=== PATIENT | male | born 1955 | race Caucasian/White ===

== ENCOUNTER 2022-08-24 10:24 | Inpatient (IN) ==
[2022-08-24] MEDS ORDERED: ONDANSETRON INJ 2 MG/ML 2 ML VIAL IV STA ×2 (11:06→12:14)
[2022-08-24] MEDS ORDERED: SODIUM CHLORIDE 0.9% 1000ML 1,000 ML IV SCH (11:15)
--- NOTE | 2022-08-24 11:15 | Emergency Department Note ---
Impression & Plan Stroke-like symptoms, Dizziness, RUE weakness, Vomiting ED Provider Note INFORMANT: Patient and family ED PROVIDER(S): Delfino Dill MD CHIEF COMPLAINT: Dizziness, nausea and vomiting PLAN: Disposition: Admitted Condition: Critical Outpatient prescription management: none Referral: None MEDICAL DECISION MAKING: Patient presented with the below symptoms. Nursing did evaluate him and he was made a priority patient. I was called to his bedside. Patient was immediately evaluated. After brief evaluation patient was made a stroke alert due to concerns about the dizziness, double vision, and right upper extremity transient weakness. Patient underwent rapid head CT imaging and CT angiography. No acute stroke or acute hemorrhage noted. Patient was treated with Zofran, IV fluids, and IV Tylenol. Patient did require second dose of IV Zofran. [facility] was evaluated via the telestroke cart. After his evaluation patient was still within the window for thrombolytics, TNK. Patient has no contraindications. Reviewed these with the family. No recent ICH, structural vascular lesion, neoplasm, recent stroke, dis section, active bleeding, recent surgery, or head injury/trauma. CT angiography of the head questioned a asymmetry/hygroma versus chronic subdural. Discussed this with Dr. Clement. He had seen this and feels no contraindication to TNK. Discussed TNK risks and benefits with family and patient. Patient and family consented verbally. Discussed with ED pharmacist. Patient was administered TNK. He was also given IV Reglan due to continued nausea. [facility] Patient will be admitted by Dr. Monteiro. They did request a critical care consultation. I did consult with Dr. Hamilton of critical care. Patient will be admitted to the ICU patient was reassessed multiple times and gradually improved with resolution of the headache, nausea, vomiting and dizziness. Discussed with medical and health services manager After review of the information above and other included data, I feel the patient requires admission. Triage Nursing notes reviewed and agree them. Vital Signs: reviewed and remarkable for no significant abnormalities Prior /Outside records reviewed: none Differential diagnosis: CVA, TIA, Infection, dehydration, metabolic abnormality, hypo/hyperglycemia, electrolyte disturbance, anemia, hypoxia, cardiac sources, intracerebral event, toxicologic, neurologic, as well as other pathologies. Diagnostics, as interpreted by me: EC Lead ECG performed and revealed Normal sinus rhythm at 70, normal Ola, QRS normal. No elevation or depression. No PACs or PVCs Cardiac Monitoring: Cardiac monitoring ordered by me: The patient was placed on continuous cardiac monitoring and observed. It revealed a normal sinus rhythm at 79 beats per minute without ectopy or evidence of dysrhythmia. Medical decision rules: none Imaging studies: CT and CT angiography as above HPI: The patient is a 67year old male who presents to the Emergency Room with complaints of dizziness, nausea and vomiting. This started 945 this morning and is somewhat improved but persisting. The patient also notes the following associated symptoms, transient right upper extremity weakness, dizziness, diplopia, nausea, vomiting, and then development of headache on the right side. The patient has taken no medication for relieving factors. Current pain is rated as 3/10. No prior history of the same. No reported slurred speech or confusion per family. Pt denies LOC, fevers, chills, diaphoresis, neck pain, chest pain, breathing difficulties,, abdominal pain, back pain, melena, h ematochezia, urinary symptoms, numbness, lymphadenopathy, rash, or other complaints. PAST MEDICAL HISTORY: See Below, diabetes, hypertension PAST SURGICAL HISTORY: See Below, SOCIAL HISTORY: See Below, non-smoker HOME MEDICATIONS: See Below ALLERGIES: See Below VITALS: See Below PHYSICAL EXAMINATION: GENERAL: Awake, alert, uncomfortable-appearing, in no distress HENT: Normocephalic, atraumatic. Oropharynx unremarkable. EYES: Normal conjunctiva. Sclera non-icteric. PERRLA. EOMI with mild lateral nystagmus. NECK: Inspection normal. Non-tender. Supple. No nuchal rigidity. FROM. No masses. RESPIRATORY: Clear to auscultation. No wheezes. No rales. Normal respiratory effort. CARDIAC: Normal rate. Normal rhythm. No murmurs. No rubs. Extremities warm and well perfused. Pulses equal. No JVD. GI: Soft, non-distended. No tenderness to palpation. No rebound or guarding. No masses. RECTAL: Deferred. MUSCULOSKELETAL: Atraumatic. Chest examination reveals no tenderness. The back is symmetrical on inspection without obvious abnormality. There is no CVA tenderness to palpation. No joint edema. LOWER EXTREMITIES: Calves are equal size bilaterally and non-tender. No edema. No discoloration. NEURO: Normal sensorium. No sensory or motor deficits noted. Cranial nerves II through XII intact. No drift. Normal rapid alternating movements and [id number]. Speech clear. SKIN: No rash or jaundice noted. CRITICAL CARE: I have personally spent greater than 60 minutes of critical care time in the direct management of this patient. This includes bedside care, interpretation of diagnostic studies, and testing, discussion with consultants, patient, and family members, and other required patient management activities. These minutes are in excess of all separately billable procedures. Past Med/Surg History Social History Smoking Status: Former smoker Smoking End Date: 25 years ago; Second Hand Exposure: No; Do You Dip or Chew Tobacco: No; Tobacco Cessation Education Requested by Patient: No Hx Alcohol Use: No Hx Substance Use: No Preferred Language: Swazi Communication Ability: Effective Spanish Linguist Required: No Beliefs That Will Affect Care: None Current Living Situation: Alone Other Information That Helps Us Care for You: No Feels Safe at Home: Yes Safety Concerns: Feels Safe At This Time Assistive Devices: Denture - Upper and Glasses Allergies Allergies Allergy/AdvReac Type Severity Reaction Status Date / Time Unable to Assess Allergy Unverified 08/24/22 12:23 Home Meds Home Medications Medication Instructions Recorded Confirmed atorvastatin 80 mg tablet 80 mg PO HS 08/24/22 08/24/22 lisinopril 20 1 tab PO DAILY 08/24/22 08/24/22 mg-hydrochlorothiazide 25 mg tablet metformin 1,000 mg tablet 1,000 mg PO BID 08/24/22 08/24/22 semaglutide 0.25 mg or 0.5 mg (2 0.5 mg subcut WK 08/24/22 08/24/22 mg/1.5 mL) subcutaneous pen injector (Ozempic) Results & Data (ED) Vital Signs Vital Signs - 24 hr 08/24/22 10:36 08/24/22 12:10 08/24/22 13:00 Temperature 36.9 C Temperature Source Oral Pulse Rate 71 79 Pulse Rate [Apical] 71 Pulse Rate from SpO2 Sensor Pulse Rhythm Regular Pulse Strength Normal Respiratory Rate 18 18 Respiratory Effort / Characteristics Non-Labored Respiratory Depth Normal Respiratory Pattern Regular Blood Pressure 136/69 Blood Pressure [Right Arm] 123/65 Blood Pressure Mean 91 Blood Pressure Mean [Right Arm] 84 Blood Pressure Position Lying Blood Pressure Position [Right Arm] Sitting Pulse Oximetry 95 97 Oxygen Delivery Method Room Air Room Air Sepsis Recent Fever Within 48 Hours No Sepsis New/Unexplained Change in Mental Status N/A Sepsis Action Taken by Nursing No Action Required 08/24/22 10:35 08/24/22 10:36 08/24/22 10:45 Temperature Temperature Source Pulse Rate 74 78 Pulse Rate [Apical] Pulse Rate from SpO2 Sensor 74 Pulse Rhythm Pulse Strength Respiratory Rate 22 22 Respiratory Effort / Characteristics Respiratory Depth Respiratory Pattern Blood Pressure 136/69 Blood Pressure [Right Arm] Blood Pressure Mean 103 Blood Pressure Mean [Right Arm] Blood Pressure Position Blood Pressure Position [Right Arm] Pulse Oximetry 98 Oxygen Delivery Method Sepsis Recent Fever Within 48 Hours Sepsis New/Unexplained Change in Mental Status Sepsis Action Taken by Nursing 08/24/22 11:00 08/24/22 11:00 08/24/22 11:15 Temperature Temperature Source Pulse Rate 72 72 Pulse Rate [Apical] Pulse Rate from SpO2 Sensor 72 73 Pulse Rhythm Pulse Strength Respiratory Rate 11 L 21 Respiratory Effort / Characteristics Respiratory Depth Respiratory Pattern Blood Pressure 165/79 H Blood Pressure [Right Arm] Blood Pressure Mean 119 Blood Pressure Mean [Right Arm] Blood Pressure Position Blood Pressure Position [Right Arm] Pulse Oximetry 92 95 Oxygen Delivery Method Sepsis Recent Fever Within 48 Hours Sepsis New/Unexplained Change in Mental Status Sepsis Action Taken by Nursing 08/24/22 11:31 08/24/22 11:31 08/24/22 11:42 Temperature Temperature Source Pulse Rate 96 H 85 Pulse Rate [Apical] Pulse Rate from SpO2 Sensor Pulse Rhythm Pulse Strength Respiratory Rate 19 18 Respiratory Effort / Characteristics Respiratory Depth Respiratory Pattern Blood Pressure 139/71 Blood Pressure [Right Arm] Blood Pressure Mean 88 Blood Pressure Mean [Right Arm] Blood Pressure Position Blood Pressure Position [Right Arm] Pulse Oximetry Oxygen Delivery Method Sepsis Recent Fever Within 48 Hours Sepsis New/Unexplained Change in Mental Status Sepsis Action Taken by Nursing 08/24/22 11:42 08/24/22 11:45 08/24/22 11:50 Temperature Temperature Source Pulse Rate 87 Pulse Rate [Apical] Pulse Rate from SpO2 Sensor 86 Pulse Rhythm Pulse Strength Respiratory Rate 19 Respiratory Effort / Characteristics Respiratory Depth Respiratory Pattern Blood Pressure 134/67 140/74 Blood Pressure [Right Arm] Blood Pressure Mean 105 119 Blood Pressure Mean [Right Arm] Blood Pressure Position Blood Pressure Position [Right Arm] Pulse Oximetry 90 Oxygen Delivery Method Sepsis Recent Fever Within 48 Hours Sepsis New/Unexplained Change in Mental Status Sepsis Action Taken by Nursing 08/24/22 11:50 08/24/22 12:00 08/24/22 12:00 Temperature Temperature Source Pulse Rate 88 76 Pulse Rate [Apical] Pulse Rate from SpO2 Sensor 88 Pulse Rhythm Pulse Strength Respiratory Rate 19 14 Respiratory Effort / Characteristics Respiratory Depth Respiratory Pattern Blood Pressure 133/63 Blood Pressure [Right Arm] Blood Pressure Mean 101 Blood Pressure Mean [Right Arm] Blood Pressure Position Blood Pressure Position [Right Arm] Pulse Oximetry 92 Oxygen Delivery Method Sepsis Recent Fever Within 48 Hours Sepsis New/Unexplained Change in Mental Status Sepsis Action Taken by Nursing 08/24/22 12:10 08/24/22 12:10 08/24/22 12:15 Temperature Temperature Source Pulse Rate 80 83 Pulse Rate [Apical] Pulse Rate from SpO2 Sensor Pulse Rhythm Pulse Strength Respiratory Rate 13 17 Respiratory Effort / Characteristics Respiratory Depth Respiratory Pattern Blood Pressure 137/70 Blood Pressure [Right Arm] Blood Pressure Mean 90 Blood Pressure Mean [Right Arm] Blood Pressure Position Blood Pressure Position [Right Arm] Pulse Oximetry Oxygen Delivery Method Sepsis Recent Fever Within 48 Hours Sepsis New/Unexplained Change in Mental Status Sepsis Action Taken by Nursing 08/24/22 12:20 08/24/22 12:20 08/24/22 12:30 Temperature Temperature Source Pulse Rate 83 Pulse Rate [Apical] Pulse Rate from SpO2 Sensor Pulse Rhythm Pulse Strength Respiratory Rate 19 Respiratory Effort / Characteristics Respiratory Depth Respiratory Pattern Blood Pressure 139/64 122/64 Blood Pressure [Right Arm] Blood Pressure Mean 101 89 Blood Pressure Mean [Right Arm] Blood Pressure Position Blood Pressure Position [Right Arm] Pulse Oximetry Oxygen Delivery Method Sepsis Recent Fever Within 48 Hours Sepsis New/Unexplained Change in Mental Status Sepsis Action Taken by Nursing 08/24/22 12:30 08/24/22 12:45 08/24/22 12:45 Temperature Temperature Source Pulse Rate 74 72 Pulse Rate [Apical] Pulse Rate from SpO2 Sensor 73 70 Pulse Rhythm Pulse Strength Respiratory Rate 18 15 Respiratory Effort / Characteristics Respiratory Depth Respiratory Pattern Blood Pressure 128/85 Blood Pressure [Right Arm] Blood Pressure Mean 95 Blood Pressure Mean [Right Arm] Blood Pressure Position Blood Pressure Position [Right Arm] Pulse Oximetry 97 96 Oxygen Delivery Method Sepsis Recent Fever Within 48 Hours Sepsis New/Unexplained Change in Mental Status Sepsis Action Taken by Nursing 08/24/22 13:00 06/14/23 13:00 Temperature Temperature Source Pulse Rate 71 Pulse Rate [Apical] Pulse Rate from SpO2 Sensor 70 Pulse Rhythm Pulse Strength Respiratory Rate 19 Respiratory Effort / Characteristics Respiratory Depth Respiratory Pattern Blood Pressure 123/65 Blood Pressure [Right Arm] Blood Pressure Mean 86 Blood Pressure Mean [Right Arm] Blood Pressure Position Blood Pressure Position [Right Arm] Pulse Oximetry 97 Oxygen Delivery Method Sepsis Recent Fever Within 48 Hours Sepsis New/Unexplained Change in Mental Status Sepsis Action Taken by Nursing Laboratory Data 08/24/22 10:42 08/24/22 10:42 Lab Results 08/24/22 08/24/22 08/24/22 Range/Units 10:42 10:42 10:42 WBC 9.38 (4.8-10.8) K/ul RBC 4.42 L (4.70-6.10) M/uL Hgb 13.4 L (14.0-18.0) g/dl POC Hgb (14.0-18.0) g/dl Hct 38.4 L (42.0-52.0) % POC Hct (42-52) % MCV 86.9 (80.0-100.0) fL MCH 30.3 (25.0-34.0) pg MCHC 34.9 (32.0-36.0) g/dL RDW Std Deviation 40.3 (36.4-46.3) fL RDW Coeff of Pamela 12.7 (11.5-14.5) % Plt Count 285 (130-400) K/uL MPV 10.8 (9.4-12.4) fL Immature Gran % (Auto) 0.2 % Neut % (Auto) 63.2 % Lymph % (Auto) 30.2 % Forest % (Auto) 4.8 % Eos % (Auto) 1.1 % Baso % (Auto) 0.5 % Neut # (Auto) 5.93 (1.40-6.50) K/uL Lymph # (Auto) 2.83 (1.2-3.4) K/uL Forest # (Auto) 0.45 (0.11-0.59) K/uL Eos # (Auto) 0.10 (0-0.50) K/uL Baso # (Auto) 0.05 (0-0.2) K/uL Immature Gran # (Auto) 0.02 (0.01-0.20) K/uL PT 10.5 (9.0-12.0) Seconds INR 1.0 (0.9-1.1) APTT 20.1 L (21.0-31.0) Seconds PTT Ratio 0.7 POC Sodium (135-144) mmol/L Sodium 140 (136-145) mmol/L POC Potassium (3.3-5.0) mmol/L Potassium 3.4 L (3.5-5.1) mmol/L POC Chloride (101-112) mmol/L Chloride 104 (98-107) mmol/L Carbon Dioxide 24 (21-32) mmol/L POC Total CO2 (24-31) mmol/L Anion Gap 12 H (3-11) POC Anion Gap (16-25) mmol/L POC BUN (7-18) mg/dl BUN 22 (6-23) mg/dl Creatinine 1.19 (0.6-1.4) mg/dl POC Creatinine (0.6-1.3) mg/dl Est Cr Clr Drug Dosing 64.2 ml/min Est GFR ( Amer) 72.3 ml/min Est GFR (Non-Af Amer) 62.4 ml/min BUN/Creatinine Ratio 18.5 (10-20) Glucose 167 H (70-99(Fasting)) mg/dl POC Glucose (70-99) mg/dl POC Glucose (other) (70-99) mg/dl Calcium 9.9 (8.6-10.3) mg/dl POC Ioniz Calcium Taiwo (1.12-1.32) mmol/l Magnesium 1.5 L (1.7-2.4) mg/dl Total Bilirubin 1.4 H (0.2-1.0) mg/dl AST 18 (13-39) U/L ALT 13 (7-52) U/L Alkaline Phosphatase 57 (34-104) U/L Troponin I High Sens 5.2 (0-20) pg/ml Total Protein 7.3 (6.0-8.3) gm/dl Albumin 4.5 (3.4-5.0) gm/dl Globulin 2.8 (2.5-4.0) gm/dl Albumin/Globulin Ratio 1.6 (0.9-2) SARS-CoV-2, RNA, NAAT (NEGATIVE) 08/24/22 08/24/22 08/24/22 Range/Units 10:50 11:18 11:20 WBC (4.8-10.8) K/ul RBC (4.70-6.10) M/uL Hgb (14.0-18.0) g/dl POC Hgb 12.2 L (14.0-18.0) g/dl Hct (42.0-52.0) % POC Hct 36 L (42-52) % MCV (80.0-100.0) fL MCH (25.0-34.0) pg MCHC (32.0-36.0) g/dL RDW Std Deviation (36.4-46.3) fL RDW Coeff of Pamela (11.5-14.5) % Plt Count (130-400) K/uL MPV (9.4-12.4) fL Immature Gran % (Auto) % Neut % (Auto) % Lymph % (Auto) % Forest % (Auto) % Eos % (Auto) % Baso % (Auto) % Neut # (Auto) (1.40-6.50) K/uL Lymph # (Auto) (1.2-3.4) K/uL Forest # (Auto) (0.11-0.59) K/uL Eos # (Auto) (0-0.50) K/uL Baso # (Auto) (0-0.2) K/uL Immature Gran # (Auto) (0.01-0.20) K/uL PT (9.0-12.0) Seconds INR (0.9-1.1) APTT (21.0-31.0) Seconds PTT Ratio POC Sodium 140 (135-144) mmol/L Sodium (136-145) mmol/L POC Potassium 3.5 (3.3-5.0) mmol/L Potassium (3.5-5.1) mmol/L POC Chloride 103 (101-112) mmol/L Chloride (98-107) mmol/L Carbon Dioxide (21-32) mmol/L POC Total CO2 21 L (24-31) mmol/L Anion Gap (3-11) POC Anion Gap 20.0 (16-25) mmol/L POC BUN 21 H (7-18) mg/dl BUN (6-23) mg/dl Creatinine (0.6-1.4) mg/dl POC Creatinine 1.1 (0.6-1.3) mg/dl Est Cr Clr Drug Dosing ml/min Est GFR ( Amer) ml/min Est GFR (Non-Af Amer) ml/min BUN/Creatinine Ratio (10-20) Glucose (70-99(Fasting)) mg/dl POC Glucose 197 H (70-99) mg/dl POC Glucose (other) 212 H (70-99) mg/dl Calcium (8.6-10.3) mg/dl POC Ioniz Calcium Taiwo 1.18 (1.12-1.32) mmol/l Magnesium (1.7-2.4) mg/dl Total Bilirubin (0.2-1.0) mg/dl AST (13-39) U/L ALT (7-52) U/L Alkaline Phosphatase (34-104) U/L Troponin I High Sens (0-20) pg/ml Total Protein (6.0-8.3) gm/dl Albumin (3.4-5.0) gm/dl Globulin (2.5-4.0) gm/dl Albumin/Globulin Ratio (0.9-2) SARS-CoV-2, RNA, NAAT NEGATIVE (NEGATIVE) Administered Medications Sodium Chloride (Nss 1000ml) 1,000 mls @ 125 mls/hr IV .Q8H XIOMARA Stop: 09/23/22 12:59 Last Admin: 08/24/22 13:18 Dose: 125 mls/hr Documented By: CRISTIAN Discontinued Medications Sodium Chloride (Nss 1000ml) 1,000 mls @ 50 mls/hr IV .Q20H XIOMARA Stop: 09/23/22 11:14 Last Infusion: 08/24/22 14:30 Dose: 0 mls/hr Documented By: Admin: 08/24/22 11:57 Dose: 50 mls/hr Documented By: ETHAN Acetaminophen (Ofirmev) 1,000 mg in 100 mls @ 400 mls/hr IV NOW STA Stop: 08/24/22 11:59 Last Infusion: 08/24/22 13:31 Dose: 0 mls/hr Documented By: Admin: 08/24/22 11:52 Dose: 400 mls/hr Documented By: ETHAN Tenecteplase 23 mg/ Syringe 4.6 mls @ 55.2 mls/min IV NOW ONE; Protocol Stop: 08/24/22 12:40 Last Admin: 08/24/22 12:33 Dose: 55.2 mls/min Documented By: NOLVIA Co-signed By: CRISTIAN Magnesium Sulfate/Dextrose (Magnesium Sulfate / D5w) 1 gm in 100 mls @ 50 mls/hr IV Q2H XIOMARA Stop: 08/24/22 17:44 Last Admin: 08/24/22 16:49 Dose: 50 mls/hr Documented By: SHEILA Sodium Chloride (Nss 1000ml) 500 mls @ 999 mls/hr IV .Q31M ONE Stop: 08/24/22 16:42 Last Infusion: 08/24/22 17:16 Dose: 0 mls/hr Documented By: Admin: 08/24/22 16:20 Dose: 999 mls/hr Documented By: SHEILA Insulin Aspart (Insulin Aspart Per Unit Charge) 0 units SC Q6 XIOMARA Stop: 09/23/22 18:29 Last Admin: 08/24/22 17:25 Dose: Not Given Documented By: SHEILA Ioversol (Optiray 320 500ml) 115 ml IV ONCE ONE Stop: 08/24/22 11:33 Last Admin: 08/24/22 11:32 Dose: 115 ml Documented By: MILE Metoclopramide HCl (Metoclopramide Hcl Inj 5 Mg/Ml 2 Ml Vial) 5 mg IV ONE ONE Stop: 08/24/22 12:47 Last Admin: 08/24/22 13:16 Dose: 5 mg Documented By: CRISTIAN Ondansetron HCl (Ondansetron Inj 2 Mg/Ml 2 Ml Vial) 4 mg IV NOW STA Stop: 08/24/22 11:07 Last Admin: 08/24/22 11:10 Dose: 4 mg Documented By: AMITA Ondansetron HCl (Ondansetron Inj 2 Mg/Ml 2 Ml Vial) 4 mg IV NOW STA Stop: 08/24/22 12:15 Last Admin: 08/24/22 12:15 Dose: 4 mg Documented By: ETHAN Potassium Chloride (Potassium Chloride Crtab 20 Meq Tabcr) 40 meq PO NOW STA Stop: 08/24/22 13:35 Last Admin: 08/24/22 17:33 Dose: 40 meq Documented By: SHEILA Sodium Chloride (Sodium Chloride 0.9% 10ml Flush) 20 ml IV NOW STA Stop: 08/24/22 12:30 Last Admin: 08/24/22 16:41 Dose: Not Given Documented By: SHEILA Imaging Data Radiologist's Impression: Chest X-Ray 08/24/22 00:00 XR chest 1V portable CLINICAL HISTORY: ILLNESS TECHNIQUE: Single frontal radiograph of the chest was obtained. Comparison: None available at the time of this dictation. FINDINGS: No lines and tubes are seen. The cardiomediastinal silhouette is normal. The lungs are clear. No evidence of pleural effusion or pneumothorax. IMPRESSION: No acute chest disease. ACT 112: Negative or not required by law. Electronically signed by: Bassam Gonzalez M.D. 08/24/2022 12:[address] 08/24/22 11:06 CT head/brain wo con CLINICAL HISTORY: neuro deficit, acute stroke suspected Technique: Contiguous axial CT images of the head were acquired from the base of the skull to the vertex without intravenous contrast administration. Images were viewed in brain, subdural and bone windows. Automated dose lowering techniques and/or adjustment according to patient size were utilized for this exam. Comparison: Comparison is made to CTA head and neck 08/25/2019 Findings: The ventricles, basal cisterns, and cerebral sulci are normal. There is no acute intracranial hemorrhage or evidence of acute territorial infarction. Neither mass effect, shift of the midline structures, nor abnormal extra-axial fluid collections are shown. Imaged portions of the paranasal sinuses and mastoid air cells are clear. The orbits appear normal. There are no acute fractures of the calvaria or scalp swelling. Impression: No acute intracranial hemorrhage, no evidence of acute territorial infarction or other acute intracranial disease process. ACT 112: Negative or not required by law. Electronically signed by: Bassam Gonzalez M.D. 08/24/2022 11:34 AM Head CTA 08/24/22 11:06 CT angio head w con CLINICAL HISTORY: 67 years-old Male with neuro deficit, acute stroke suspected. Acute strokelike symptoms headache COMPARISON STUDY: Head CT of same day TECHNIQUE: Following the IV administration of 150 cc of Optiray, CT angiogram of the brain was performed from the skull base to the vertex. Images are reviewed in the axial, sagittal, and coronal planes. 3-D MIPS images are created and assessed. IV contrast was administered without complication. All measurements were obtained according to NASCET criteria. A dose lowering technique was utilized adhering to the principles of ALARA. FINDINGS: CT ANGIOGRAM OF THE BRAIN: The imaged bilateral internal carotid arteries are patent. The bilateral anterior and middle cerebral arteries are also patent. The vertebrobasilar system and posterior cerebral arteries are widely patent. Diminutive right vertebral artery is likely developmental. Diminutive basilar artery with origin of the posterior cerebral arteries. Mild fusiform dilation of the basilar tip measures up to 2.8 cm, likely secondary to normal vascular pedicle origin. There is no aneurysm, high-grade stenosis, or proximal branch occlusion identified. Dural sinuses appear patent. Asymmetric extra-axial space with CSF attenuation adjacent to the left cerebral hemisphere measures up to 5 mm. Involutional changes with suggestion of mild chronic microvascular ischemic disease. IMPRESSION: 1. Unremarkable CTA of the head. 2. 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 3. Involutional changes with suggestion of mild chronic microvascular ischemic disease. ACT 112: Negative or not required by law. The above report was generated using voice recognition software. It may contain grammatical, syntax or spelling errors. Electronically signed by: Rolf Luna M.D. 08/24/2022 11:54 AM Neck CTA 08/24/22 11:06 CT ANGIOGRAPHY OF THE NECK WITH CONTRAST CLINICAL HISTORY: neuro deficit, acute stroke suspected. Blurred vision. Right arm weakness. COMPARISON STUDY: No previous studies for comparison. Technique: CT angiography of the carotid and vertebral arteries was obtained using Optiray and 3D reconstruction on an independent workstation. NASCET criteria was utilized. Automated exposure control was utilized for the study. A dose lowering technique was utilized adhering to the principles of ALARA. CT DOSE: 1543.24 mGy.cm Findings: Visualized portions of the lung apices are unremarkable. There is no cervical spine fracture. There is no cervical lymphadenopathy. The left vertebral artery is dominant and patent. The right vertebral artery is diminutive on a congenital basis. The bilateral common carotid and cervical internal carotid arteries are patent. There is mild plaque within these vessels. There is no stenosis or dissection within the neck. There is no aneurysm within the neck. IMPRESSION: No stenosis or dissection within the bilateral common carotid, cer vical internal carotid or vertebral arteries. Mild atherosclerotic plaque. ACT 112: Negative or not required by law. Electronically signed by: Tonio Piña M.D. 08/24/2022 11:43 AM Discharge Plan Visit Data Chief Complaint: Illness Stated Complaint: BLURRY EYE & ARM HEAVINESS ED Provider: Delfino Dill Discharge Problem: Stroke-like symptoms, Dizziness, RUE weakness, Vomiting Patient Disposition: Admitted As Inpatient Discharge Instructions Interventions: ED Discharge Assessment Last Done: 08/24/22 13:56
[2022-08-24 11:29] LABS: Basophils # (auto) 0.05 K/uL (0-0.2); Basophils % (auto) 0.5 %; Eosinophils % (auto) 1.1 %; Hematocrit (blood only) 38.4 % (42.0-52.0); Hemoglobin 13.4 g/dl (14.0-18.0); Immature Granulocytes # (auto) 0.02 K/uL (0.01-0.20); Immature Granulocytes % (auto) 0.2 %; Lymphocytes # (auto) 2.83 K/uL (1.2-3.4); Lymphocytes % (auto) 30.2 %; Mean Corpuscular Hemoglobin 30.3 pg (25.0-34.0); Mean Corpuscular Hgb Conc 34.9 g/dL (32.0-36.0); Mean Corpuscular Volume 86.9 fL (80.0-100.0); Mean Platelet Volume 10.8 fL (9.4-12.4); Monocytes # (auto) 0.45 K/uL (0.11-0.59); Monocytes % (auto) 4.8 %; Neutrophils # (auto) 5.93 K/uL (1.40-6.50); Neutrophils % (auto) 63.2 %; Platelet Count 285 K/uL (130-400); RDW Coefficient of Variation 12.7 % (11.5-14.5); RDW Standard Deviation 40.3 fL (36.4-46.3); Red Blood Count 4.42 M/uL (4.70-6.10); White Blood Count 9.38 K/ul (4.8-10.8)
[2022-08-24 11:30] LABS: iSTAT Creatinine 1.1 mg/dl (0.6-1.3); iSTAT Hemoglobin 12.2 g/dl (14.0-18.0); iSTAT Ionized Calcium 1.18 mmol/l (1.12-1.32); iSTAT Potassium 3.5 mmol/L (3.3-5.0)
[2022-08-24] MEDS ORDERED: OPTIRAY 320 500ml IV ONE (11:32)
--- NOTE | 2022-08-24 11:36 | CT Scan Report ---
CT head/brain wo con CLINICAL HISTORY: neuro deficit, acute stroke suspected Technique: Contiguous axial CT images of the head were acquired from the base of the skull to the timo shade without intravenous contrast administration. Images were viewed in brain, subdural and bone [facility]. Automated dose lowering techniques and/or adjustment according to patient size were utilized for this exam. Comparison: Comparison is made to CTA head and neck 08/25/2019 Findings: The ventricles, basal cisterns, and cerebral sulci are normal. There is no acute intracranial hemorrh age or evidence of acute territorial infarction. Neither mass effect, shift of the midline structures , nor abnormal extra-axial fluid collections are shown. Imaged portions of the paranasal sinuses and mastoid air cells are clear. The orbits appear normal. There are no acute fractures of the calvaria or scalp swelling. Impression: No acute intracranial hemorrhage, no evidence of acute territorial infarction or other acute intracra nial disease process. ACT 112: Negative or not required by law. Electronically signed by: Bassam Gonzalez M.D. 08/24/2022 11:34 AM
[2022-08-24 11:44] LABS: Albumin Globulin Ratio 1.6 (0.9-2); Albumin Level 4.5 gm/dl (3.4-5.0); BUN Creatinine Ratio 18.5 (10-20); Bilirubin,Total 1.4 mg/dl (0.2-1.0); Calcium 9.9 mg/dl (8.6-10.3); Creatinine Clr Calc Pharmacy 64.2 ml/min; Est GFR (African American) 72.3 ml/min; Est GFR (Non-African American) 62.4 ml/min; Globulin 2.8 gm/dl (2.5-4.0); Magnesium 1.5 mg/dl (1.7-2.4); Potassium 3.4 mmol/L (3.5-5.1); Total Protein 7.3 gm/dl (6.0-8.3)
[2022-08-24] MEDS ORDERED: ACETAMINOPHEN 1,000 MG/100 ML VIAL IV STA (11:45)
--- NOTE | 2022-08-24 11:45 | CT Scan Report ---
CT ANGIOGRAPHY OF THE NECK WITH CONTRAST CLINICAL HISTORY: neuro deficit, acute stroke suspected. Blurred vision. Right arm weakness. COMPARISON STUDY: No previous studies for comparison. Technique: CT angiography of the carotid and vertebral arteries was obtained using Optiray and 3D rec onstruction on an independent workstation. NASCET criteria was utilized. Automated exposure control was utilized for the study. A dose lowering technique was utilized adhering to the principles of ALA RA. CT DOSE: 1543.24 mGy.cm Findings: Visualized portions of the lung apices are unremarkable. There is no cervical spine fractur e. There is no cervical lymphadenopathy. The left vertebral artery is dominant and patent. The right vertebral artery is diminutive on a congenital basis. The bilateral common carotid and cervical inter nal carotid arteries are patent. There is mild plaque within these vessels. There is no stenosis or d issection within the neck. There is no aneurysm within the neck. IMPRESSION: No stenosis or dissection within the bilateral common carotid, cervical internal carotid or vertebral arteries. Mild atherosclerotic plaque. ACT 112: Negative or not required by law. Electronically signed by: Tonio Piña M.D. 08/24/2022 11:43 AM
[2022-08-24 11:50] LABS: Troponin I High Sensitivity 5.2 pg/ml (0-20)
--- NOTE | 2022-08-24 11:56 | CT Scan Report ---
CT angio head w con CLINICAL HISTORY: 67 years-old Male with neuro deficit, acute stroke suspected. Acute strokelike s ymptoms headache COMPARISON STUDY: Head CT of same day TECHNIQUE: Following the IV administration of 150 cc of Optiray, CT angiogram of the brain was perfor med from the skull base to the vertex. Images are reviewed in the axial, sagittal, and coronal planes . 3-D MIPS images are created and assessed. IV contrast was administered without complication. All me asurements were obtained according to NASCET criteria. A dose lowering technique was utilized adherin g to the principles of ALARA. FINDINGS: CT ANGIOGRAM OF THE BRAIN: The imaged bilateral internal carotid arteries are patent. The bilateral anterior and middle cerebral arteries are also patent. The vertebrobasilar system and posterior cerebral arteries are widely kay nt. Diminutive right vertebral artery is likely developmental. Diminutive basilar artery with o rigin of the posterior cerebral arteries. Mild fusiform dilation of the basilar tip measures up to 2. 8 cm, likely secondary to normal vascular pedicle origin. There is no aneurysm, high-grade stenosis, or proximal branch occlusion identified. Dural sinuses appear patent. Asymmetric extra-axial space with CSF attenuation adjacent to the left cerebral hemisphere measures u p to 5 mm. Involutional changes with suggestion of mild chronic microvascular ischemic disease. IMPRESSION: 1. Unremarkable CTA of the head. 2. 5 mm asymmetric CSF attenuating extra-axial space adjacent to the left cerebral hemisphere suggest prerna of a hygroma versus chronic subdural hematoma. 3. Involutional changes with suggestion of mild chronic microvascular ischemic disease. ACT 112: Negative or not required by law. The above report was generated using voice recognition software. It may contain grammatical, syntax o r spelling errors. Electronically signed by: Rolf Luna M.D. 08/24/2022 11:54 AM
[2022-08-24 11:58] LABS: Partial Thromboplastin Ratio 0.7; Partial Thromboplastin Time 20.1 Seconds (21.0-31.0); Prothrombin Time 10.5 Seconds (9.0-12.0)
[2022-08-24] MEDS ORDERED: STAT IV STA (12:29)
[2022-08-24] MEDS ORDERED: SODIUM CHLORIDE 0.9% 10ML FLUSH IV STA (12:29)
[2022-08-24] MEDS ORDERED: No Aspirin within 24hrs of THROMBOLYTIC-Stroke PO SCH (12:30)
[2022-08-24] MEDS ORDERED: TENECTEPLASE 23 MG in SYRINGE 0 ML IV ONE (12:39)
[2022-08-24] MEDS ORDERED: METOCLOPRAMIDE HCL INJ 5 MG/ML 2 ML VIAL IV ONE (12:46)
--- NOTE | 2022-08-24 12:57 | XRay Report ---
XR chest 1V portable CLINICAL HISTORY: ILLNESS TECHNIQUE: Single frontal radiograph of the chest was obtained. Comparison: None available at the time of this dictation. FINDINGS: No lines and tubes are seen. The cardiomediastinal silhouette is normal. The lungs are clear. No evid ence of pleural effusion or pneumothorax. IMPRESSION: No acute chest disease. ACT 112: Negative or not required by law. Electronically signed by: Bassam Gonzalez M.D. 08/24/2022 12:55 PM
[2022-08-24] MEDS ORDERED: PHARMACIST DISCHARGE MED REC CONSULT PRN ×2 (13:01→13:18)
[2022-08-24] MEDS ORDERED: LABETALOL HCL IV 5 MG/ML 20ML IV PRN (13:18)
[2022-08-24] MEDS: SODIUM CHLORIDE 0.9% 1000ML 1,000 ML IV SCH ×2 (13:18→21:40)
[2022-08-24] MEDS ORDERED: GLUCOSE 40% GEL 15 GM TUBE PO PRN (13:20)
[2022-08-24] MEDS ORDERED: CARBOHYDRATES FOR HYPOGLYCEMIA PO PRN (13:20)
[2022-08-24] MEDS ORDERED: DEXTROSE 50% 50 ML SYRINGE IV PRN (13:20)
[2022-08-24] MEDS ORDERED: GLUCAGON FOR INJ 1 MG VIAL SQ PRN (13:20)
[2022-08-24] MEDS ORDERED: GLUCOSE 10 TAB/TUBE PO PRN (13:20)
[2022-08-24] MEDS ORDERED: POTASSIUM CHLORIDE CRTAB 20 MEQ TABCR PO STA (13:34)
--- NOTE | 2022-08-24 13:45 | History & Physical Report ---
Date of Service August 24, 2022 Assessment & Plan (1) Stroke-like symptoms: Plan: -Admit to the ICU -Developed sudden onset of right-sided headache, dizziness/sensation of the room spinning, RUE weakness, nausea/vomiting at 0945 today -Stroke alert calledMary telestroke evaluated patient and review CT head and CTA head/neck, recommended giving TNK -TNK given at 12:33 pm -Currently stable, vision changes and RUE weakness have nearly resolved, still having right-sided headache and some nausea -q2h neuro checks -Monitor BP, prn labetalol ordered for systolic BP >180 and diastolic BP >105 for the first 24 hours -Hold all anticoagulants and antiplatelets for the first 24 hours -Will obtain MRI of brain WO con and TTE for further evaluation -No sign of arrhythmia on ECG, continue to monitor on tele -PT/OT and Neurology consults placed -Fall precautions and dysphagia screen ordered -Will defer continuation of IV fluids to the ICU at this time -Continue high dose atorvastatin -BL SCD's for DVT PPX for the first 24 hours -AM CBC, CMP, Mag, PT/INR, A1C, and lipid panel (2) HTN (hypertension): Plan: -Currently stable -PRN labetalol and BP parameters ordered -Will hold Lisinopril-HCTZ for now until electrolytes are stable (3) Hypokalemia: Plan: -Noted to be 3.4 in the ED -No ECG changes -Likely due to HCTZ use and low mag -Will give 40 meq PO KCL once he passes his dysphagia screen, if he fails would switch to IV -Monitor am electrolytes, monitor on tele (4) Hypomagnesemia: Plan: -Noted to be 1.5 today -Likely due to HCTZ use -Will give 1gm IV Mag-sulfate x 2 bags for now -Hold lisinopril-HCTZ until electrolytes are stable (5) DM II (diabetes mellitus, type II), controlled: Plan: -Hold metformin -Monitor BSG ACHS, goal is 110-140 -Will start with 5 units lantus BID, CF of 50, and CR of 15 -Adjust regimen as needed (6) Hyperlipidemia: Plan: -Continue atorvastatin Plan The patient was discussed with Dr. Monteiro at the time of the admission History of Present Illness Chief Complaint: Stroke-like symptoms Primary Care Provider: Fernando Sorensen is a 67 year old male with a PMH significant for DM II, HTN, Hyperlipidemia who presented to the [facility] ED on 08/24/22 with complaints of headache, blurry vision, right upper extremity weakness, nausea/vomiting. In the vitals were stable, a stroke alert was called after his initial evaluation. Labs were significant for a potassium of 3.4, mag of 1.5, total bili of 1.4, and covid [address] head wo con was read as No acute intracranial hemorrhage, no evidence of acute territorial infarction or other acute intracranial disease process.. CTA of the head was read as 1. Unremarkable CTA of the head. 2. 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 3. Involu tional changes with suggestion of mild chronic microvascular ischemic disease.. CTA of the neck was read as No stenosis or dissection within the bilateral common carotid, cervical internal carotid or vertebral arteries. Mild atherosclerotic plaque.. Prior to admission the patient was given 5 mg IV reglan, 8 mg IV Zofran, 1gm IV acetaminophen, and 23 mg TNK after discussions with [facility] Telestroke Therapy Administrative Assistant. At the time of the exam the patient was sitting in bed in no acute distress with his children bedside. He states that he was in his normal state of health when he woke this am. Around 0945 he developed a sudden onset of dizziness/room spinning, right-sided headache, BL blurry vision, and right UE weakness. He denies having symptoms like this in the past or a previous hx of stroke. He denies tobacco, alcohol, and recreational drug use. He took all of his am medications prior to ED arrival. Currently his dizziness and blurry vision have resolved. He feels as though his RUE weakness is nearly resolved but he is still having the right-sided headache and feels generally weak. He denies recent fever, chills, chest pain, SOB, cough, abd pain, hematemesis, dysuria, hem aturia, melena, LE swelling, and recent trauma. He denies any new paresthesias or weakness since receiving TNK at 12:33. We discussed code status, he wishes to be a DNR/DNI and would want both his children to make medical decisions for him if he could not make them himself. Please refer to Dr. Monteiro's attestation for any changes to the treatment plan Allergies Allergy/AdvReac Type Severity Reaction Status Date / Time Unable to Assess Allergy Unverified 08/24/22 12:23 Home Medications Medication Instructions Recorded Confirmed Type atorvastatin 80 mg tablet 80 mg PO HS 08/24/22 08/24/22 History lisinopril 20 1 tab PO DAILY 08/24/22 08/24/22 History mg-hydrochlorothiazide 25 mg tablet metformin 1,000 mg tablet 1,000 mg PO BID 08/24/22 08/24/22 History semaglutide 0.25 mg or 0.5 mg (2 0.5 mg subcut WK 08/24/22 08/24/22 History mg/1.5 mL) subcutaneous pen injector (Ozempic) Past Med/Surg History Social History Smoking Status: Former smoker Smoking End Date: 25 years ago; Second Hand Exposure: No; Do You Dip or Chew Tobacco: No; Tobacco Cessation Education Requested by Patient: No Hx Alcohol Use: No Hx Substance Use: No Preferred Language: Lao Communication Ability: Effective Electric Switch Tester Required: No Beliefs That Will Affect Care: None Current Living Situation: Alone Other Information That Helps Us Care for You: No Feels Safe at Home: Yes Safety Concerns: Feels Safe At This Time Assistive Devices: Glasses Physical Exam Physical Exam: Physical Exam: General: In no acute distress, stated age, well-nourished,non-toxic appearing HEENT: Normocephalic, atraumatic, no scleral icterus, pupils around round, symmetrical, and reactive to light, moist mucus membranes, trachea midline, no thyromegaly Chest/Pulm: No respiratory distress, symmetrical chest expansion, clear breath sounds throughout Cardiac: RRR, no murmurs noted Abdomen: Negative for ascites and bruising, normoactive bowel sounds, soft, n on-tender to palpation throughout Musculoskeletal: Symmetrical and without signs of acute trauma, upper and lower extremities with full ROM, no atrophy, spasticity, or flaccidity Extremities: Radial, dorsalis pedis, and posterior tibial pulses are intact and symmetrical, no edema noted in the BL LE's Skin: Warm, dry, no rashes , lesions, or scars noted Neuro: Alert and oriented to person, place, month, year, and president, no focal defects, CN II-XII tested and intact, slight difficulty with cerebellar testing in the RUE compared to left, RUE minimally weak compared to left, symmetrical strength in the BL LE, no tremors noted Psych: No acute distress, calm and cooperative during the exam Results & Data Results & Data Vital Signs (Past 12 Hours) Vital Signs Temp Pulse Pulse Resp BP BP Pulse Ox 08/24/22 13:00 71 18 123/65 97 08/24/22 12:10 79 08/24/22 10:36 36.9 C 71 18 136/69 95 O2 Del Method 08/24/22 13:00 Room Air 08/24/22 12:10 08/24/22 10:36 Room Air Laboratory Results Abnormal lab results 08/24/22 08/24/22 08/24/22 Range/Units 10:42 10:42 10:42 RBC 4.42 L (4.70-6.10) M/uL Hgb 13.4 L (14.0-18.0) g/dl POC Hgb (14.0-18.0) g/dl Hct 38.4 L (42.0-52.0) % POC Hct (42-52) % APTT 20.1 L (21.0-31.0) Seconds Potassium 3.4 L (3.5-5.1) mmol/L POC Total CO2 (24-31) mmol/L Anion Gap 12 H (3-11) POC BUN (7-18) mg/dl Glucose 167 H (70-99(Fasting)) mg/dl POC Glucose (70-99) mg/dl POC Glucose (other) (70-99) mg/dl Magnesium 1.5 L (1.7-2.4) mg/dl Total Bilirubin 1.4 H (0.2-1.0) mg/dl 08/24/22 08/24/22 Range/Units 10:50 11:18 RBC (4.70-6.10) M/uL Hgb (14.0-18.0) g/dl POC Hgb 12.2 L (14.0-18.0) g/dl Hct (42.0-52.0) % POC Hct 36 L (42-52) % APTT (21.0-31.0) Seconds Potassium (3.5-5.1) mmol/L POC Total CO2 21 L (24-31) mmol/L Anion Gap (3-11) POC BUN 21 H (7-18) mg/dl Glucose (70-99(Fasting)) mg/dl POC Glucose 197 H (70-99) mg/dl POC Glucose (other) 212 H (70-99) mg/dl Magnesium (1.7-2.4) mg/dl Total Bilirubin (0.2-1.0) mg/dl Diagnostic Findings Chest X-Ray 08/24/22 00:00 XR chest 1V portable CLINICAL HISTORY: ILLNESS TECHNIQUE: Single frontal radiograph of the chest was obtained. Comparison: None available at the time of this dictation. FINDINGS: No lines and tubes are seen. The cardiomediastinal silhouette is normal. The lungs are clear. No evidence of pleural effusion or pneumothorax. IMPRESSION: No acute chest disease. ACT 112: Negative or not required by law. Electronically signed by: Bassam Gonzalez M.D. 08/24/2022 12:[address] 08/24/22 11:06 CT head/brain wo con CLINICAL HISTORY: neuro deficit, acute stroke suspected Technique: Contiguous axial CT images of the head were acquired from the base of the skull to the vertex without intravenous contrast administration. Images were viewed in brain, subdural and bone windows. Automated dose lowering techniques and/or adjustment according to patient size were utilized for this exam. Comparison: Comparison is made to CTA head and neck 08/25/2019 Findings: The ventricles, basal cisterns, and cerebral sulci are normal. There is no acute intracranial hemorrhage or evidence of acute territorial infarction. Neither mass effect, shift of the midline structures, nor abnormal extra-axial fluid collections are shown. Imaged portions of the paranasal sinuses and mastoid air cells are clear. The orbits appear normal. There are no acute fractures of the calvaria or scalp swelling. Impression: No acute intracranial hemorrhage, no evidence of acute territorial infarction or other acute intracranial disease process. ACT 112: Negative or not required by law. Electronically signed by: Bassam Gonzalez M.D. 08/24/2022 11:34 AM Head CTA 08/24/22 11:06 CT angio head w con CLINICAL HISTORY: 67 years-old Male with neuro deficit, acute stroke suspected. Acute strokelike symptoms headache COMPARISON STUDY: Head CT of same day TECHNIQUE: Following the IV administration of 150 cc of Optiray, CT angiogram of the brain was performed from the skull base to the vertex. Images are reviewed in the axial, sagittal, and coronal planes. 3-D MIPS images are created and assessed. IV contrast was administered without complication. All measurements were obtained according to NASCET criteria. A dose lowering technique was utilized adhering to the principles of ALARA. FINDINGS: CT ANGIOGRAM OF THE BRAIN: The imaged bilateral internal carotid arteries are patent. The bilateral anterior and middle cerebral arteries are also patent. The vertebrobasilar system and posterior cerebral arteries are widely patent. Diminutive right vertebral artery is likely developmental. Diminutive basilar artery with origin of the posterior cerebral arteries. Mild fusiform dilation of the basilar tip measures up to 2.8 cm, likely secondary to normal vascular pedicle origin. There is no aneurysm, high-grade stenosis, or proximal branch occlusion identified. Dural sinuses appear patent. Asymmetric extra-axial space with CSF attenuation adjacent to the left cerebral hemisphere measures up to 5 mm. Involutional changes with suggestion of mild chronic microvascular ischemic disease. IMPRESSION: 1. Unremarkable CTA of the head. 2. 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 3. Involutional changes with suggestion of mild chronic microvascular ischemic disease. ACT 112: Negative or not required by law. The above report was generated using voice recognition software. It may contain grammatical, syntax or spelling errors. Electronically signed by: Rolf Luna M.D. 08/24/2022 11:54 AM Neck CTA 08/24/22 11:06 CT ANGIOGRAPHY OF THE NECK WITH CONTRAST CLINICAL HISTORY: neuro deficit, acute stroke suspected. Blurred vision. Right arm weakness. COMPARISON STUDY: No previous studies for comparison. Technique: CT angiography of the carotid and vertebral arteries was obtained using Optiray and 3D reconstruction on an independent workstation. NASCET criteria was utilized. Automated exposure control was utilized for the study. A dose lowering technique was utilized adhering to the principles of ALARA. CT DOSE: 1543.24 mGy.cm Findings: Visualized portions of the lung apices are unremarkable. There is no cervical spine fracture. There is no cervical lymphadenopathy. The left vertebral artery is dominant and patent. The right vertebral artery is diminutive on a congenital basis. The bilateral common carotid and cervical internal carotid arteries are patent. There is mild plaque within these vessels. There is no stenosis or dissection within the neck. There is no aneurysm within the neck. IMPRESSION: No stenosis or dissection within the bilateral common carotid, cervical internal carotid or vertebral arteries. Mild atherosclerotic plaque. ACT 112: Negative or not required by law. Electronically signed by: Tonio Piña M.D. 08/24/2022 11:43 AM ECG Additional Comments: Normal sinus rhythm Normal ECG When compared with ECG of 30-NOV-1996 09:53, No significant change was found Code Status & VTE Plan Code Status DNR/DNI VTE Prophylaxis Plan VTE Prophylaxis will be ordered: Yes Supervising Physician Co-Signing Physician Notes I personally saw and examined the patient. I verified all pozo points and agree with Simone Fish PA-C with the following exceptions and/or additions: 67 year old male presents to the ER with sudden onset vertigo, right sided headache and vision blurring. Symptoms resolved when seen in the ICU s/p TNK. O/E A&Ox3, HS RRR, no murmurs, Chest CTAB, Abdo SNT, PERRL, CN 2-> 12 intact, no visual acuity loss, EOMI intact without double vision, no pronator drift, 5/5 power in upper and lower extremities without sensation loss. Reflexes not examined. A/P Acute CVA - s/p TNK. Admitted to ICU. Repeat CT head in AM to assess for mass effect. No anticoagulation or antiplatelets for 24 hours. Appreciate ICU ongoing management. PG Care Time/CCT Total # of Minutes Spent Total Time Spent with Patient: Total time spent is greater than 50% in coordination of care (as documented) at patient's floor/unit and/or counseling patient: Coding [place] [address] INT INP/OBS CARE 3/75MIN Patient Type Established Medical Decision Making High Complexity Diagnoses Stroke-like symptoms R29.90 HTN (hypertension) I10 Hypokalemia E87.6 Hypomagnesemia E83.42 DM II (diabetes mellitus, type II), controlled E11.9 Hyperlipidemia E78.5
--- NOTE | 2022-08-24 15:00 | Electrocardiogram Report ---
Test Reason : Blood Pressure : / mmHG Vent. Rate : 070 BPM Atrial Rate : 070 BPM P-R Int : 148 ms QRS Dur : 100 ms QT Int : 416 ms P-R-T Axes : 068 026 062 degrees QTc Int : 449 ms Normal sinus rhythm Normal ECG When compared with ECG of 30-NOV-1996 09:53, No significant change was found Confirmed by Choco Obrien ([id number]) on 08/24/2022 2:59:57 PM Referred By: REFERRED SELF Confirmed By:Atul Obrien
[2022-08-24] MEDS ORDERED: SODIUM CHLORIDE 0.9% 1000ML 500 ML IV ONE (16:12)
--- NOTE | 2022-08-24 16:26 | Critical Care Consultation ---
Date of Consultation August 24, 2022 Assessment & Plan (1) Stroke-like symptoms: Reason Critically Ill: 67-year-old male with strokelike symptoms who received TNKase at 12:33 PM PLAN: Neuro: Strokelike symptoms -MRI and neurology consult pending CV: Hypertension -Blood pressure in acceptable range Fluids/Renal: Mild hypokalemia -Received K-Dur: 40 mEq Hypomagnesemia -Ordered to grams to be administered IV GI/Nutrition: Passed bedside swallow -Heart healthy diet Hypercholesterolemia -Continue atorvastatin 80 mg Heme: Anemia -Follow-up as outpatient DVT prophylaxis: Chemoprophylaxis contraindicated secondary to recent thrombolytics Endocrine: ICU hyperglycemia protocol Sliding scale insulin as needed -Hold metformin Vascular access: Peripheral IVs Code Status: DNR/DNI in event of cardiac arrest Disposition: ICU (2) Hypomagnesemia: (3) Thrombolytic medication administered within last 5 days: (4) Hypokalemia: (5) HTN (hypertension): (6) Hyperlipidemia: (7) DM II (diabetes mellitus, type II), controlled: Supervising Physician Co-Signing Physician Notes I have personally spent 30 minutes of critical care time in the direct manageme nt of this patient. This is a life/limb threatening event. This includes time spent evaluating patient, direct bedside care, chart review, placing orders, interpretation of diagnostic studies, discussion with consultants, patient, and/or family members regarding treatment decisions, as well as other required patient management activities. This time is exclusive of all separately billable procedures, and teaching time and separate from and in addition to any other critical care service time. History of Present Illness Reason for Consultation: Status post TNKase for suspected CVA Attending Physician: Fredy Monteiro MD History of Present Illness Patient is a 67-year-old male who recently had his after being admitted to this hospital and subsequently transferred to [facility]. He has been at [facility] by her bedside for the past 3 days. Family reports that he has had poor appetite and poor sleep, the patient also reports he has had diarrhea and nausea with occasional vomiting and feels he may be dehydrated. Family noted that there was sudden onset of dizziness and clumsiness with blurred vision. They report that he had a right-sided headache around this time but it was not sudden onset in nature. He underwent CT scanning and stroke evaluation in the emergency department and was given TNK at 1233. Patient's past medical history includes type 2 diabetes, hypertension and hyperlipidemia. In the interim his weakness and dizziness have largely resolved. He still is complaining of a retro-orbital headache that waxes and wanes during my evaluation he reported it being 5 out of 10 without exacerbating or relieving factors. The Tylenol he received in the emergency department was largely ineffective. We discussed treatment options including morphine however he prefers to wait at this time. Family members are concerned that he has been dehydrated due to poor p.o. intake we will give the patient additional bolus of fluid in the interim. Allergies Allergy/AdvReac Type Severity Reaction Status Date / Time Unable to Assess Allergy Unverified 08/24/22 12:23 Home Medications Medication Instructions Recorded Confirmed Type atorvastatin 80 mg tablet 80 mg PO HS 08/24/22 08/24/22 History lisinopril 20 1 tab PO DAILY 08/24/22 08/24/22 History mg-hydrochlorothiazide 25 mg tablet metformin 1,000 mg tablet 1,000 mg PO BID 08/24/22 08/24/22 History semaglutide 0.25 mg or 0.5 mg (2 0.5 mg subcut WK 08/24/22 08/24/22 History mg/1.5 mL) subcutaneous pen injector (Ozempic) Patient History Social History Smoking Status: Former smoker Smoking End Date: 25 years ago; Second Hand Exposure: No; Do You Dip or Chew Tobacco: No; Tobacco Cessation Education Requested by Patient: No Hx Alcohol Use: No Hx Substance Use: No Preferred Language: Tuvaluan Communication Ability: Effective Fire Adjuster Required: No Beliefs That Will Affect Care: None Current Living Situation: Alone Other Information That Helps Us Care for You: No Feels Safe at Home: Yes Safety Concerns: Feels Safe At This Time Assistive Devices: Denture - Upper and Glasses Physical Exam Physical Exam: General: Alert. nontoxic. Skin: Warm, dry, Head: Atraumatic Ears, nose, mouth and throat: airway patent Cardiovascular: Normal peripheral perfusion Respiratory: no respiratory distress Gastrointestinal: Non distended Musculoskeletal: No deformity Neuro: Cranial nerves II through XII appear to be grossly intact., He has mild dysmetria associated with the right upper extremity, family reports it is significantly improved from earlier today Results & Data Results & Data Vital Signs (Past 12 Hours) Vital Signs Temp Pulse Pulse Resp BP BP Pulse Ox 08/24/22 15:45 78 17 91 08/24/22 15:41 73 14 91 08/24/22 15:41 122/84 08/24/22 15:30 74 18 92 08/24/22 15:15 70 15 96 08/24/22 15:00 70 19 97 08/24/22 15:00 110/56 L 08/24/22 14:49 110/62 08/24/22 14:49 74 18 97 08/24/22 14:45 75 21 95 08/24/22 14:41 125/66 08/24/22 14:41 73 22 08/24/22 14:40 69 16 08/24/22 14:15 70 15 97 08/24/22 14:00 73 18 97 08/24/22 13:45 72 14 96 08/24/22 13:45 116/59 L 08/24/22 13:30 80 13 95 08/24/22 13:30 127/67 08/24/22 15:18 70 08/24/22 15:20 36.8 C 68 15 110/56 L 96 08/24/22 13:15 73 21 96 08/24/22 13:15 130/66 08/24/22 13:00 71 19 97 08/24/22 13:00 123/65 08/24/22 12:45 72 15 96 08/24/22 12:45 128/85 08/24/22 12:30 74 18 97 08/24/22 12:30 122/64 08/24/22 12:20 139/64 08/24/22 12:20 83 19 08/24/22 12:15 83 17 08/24/22 12:10 137/70 08/24/22 12:10 80 13 08/24/22 12:00 76 14 08/24/22 12:00 133/63 08/24/22 11:50 88 19 92 08/24/22 11:50 140/74 08/24/22 11:45 87 19 90 08/24/22 11:42 134/67 08/24/22 11:42 85 18 08/24/22 11:31 96 H 19 08/24/22 11:31 139/71 08/24/22 11:15 72 21 95 08/24/22 11:00 72 11 L 92 08/24/22 11:00 165/79 H 08/24/22 10:45 78 22 08/24/22 10:36 74 22 98 08/24/22 10:35 136/69 08/24/22 13:00 71 18 123/65 97 08/24/22 12:10 79 08/24/22 10:36 36.9 C 71 18 136/69 95 O2 Del Method O2 Flow Rate 08/24/22 15:45 08/24/22 15:41 08/24/22 15:41 08/24/22 15:30 08/24/22 15:15 08/24/22 15:00 08/24/22 15:00 08/24/22 14:49 08/24/22 14:49 08/24/22 14:45 08/24/22 14:41 08/24/22 14:41 08/24/22 14:40 08/24/22 14:15 08/24/22 14:00 08/24/22 13:45 08/24/22 13:45 08/24/22 13:30 08/24/22 13:30 08/24/22 15:18 08/24/22 15:20 Nasal Cannula 3 08/24/22 13:15 08/24/22 13:15 08/24/22 13:00 08/24/22 13:00 08/24/22 12:45 08/24/22 12:45 08/24/22 12:30 08/24/22 12:30 08/24/22 12:20 08/24/22 12:20 08/24/22 12:15 08/24/22 12:10 08/24/22 12:10 08/24/22 12:00 08/24/22 12:00 08/24/22 11:50 08/24/22 11:50 08/24/22 11:45 08/24/22 11:42 08/24/22 11:42 08/24/22 11:31 08/24/22 11:31 08/24/22 11:15 08/24/22 11:00 08/24/22 11:00 08/24/22 10:45 08/24/22 10:36 08/24/22 10:35 08/24/22 13:00 Room Air 08/24/22 12:10 08/24/22 10:36 Room Air Critical Care Results & Data Vital Signs (Past 12 Hours) Vital Signs Temp Pulse Pulse Resp BP BP Pulse Ox 08/24/22 15:45 78 17 91 08/24/22 15:41 73 14 91 08/24/22 15:41 122/84 08/24/22 15:30 74 18 92 08/24/22 15:15 70 15 96 08/24/22 15:00 70 19 97 08/24/22 15:00 110/56 L 08/24/22 14:49 110/62 08/24/22 14:49 74 18 97 08/24/22 14:45 75 21 95 08/24/22 14:41 125/66 08/24/22 14:41 73 22 08/24/22 14:40 69 16 08/24/22 14:15 70 15 97 08/24/22 14:00 73 18 97 08/24/22 13:45 72 14 96 08/24/22 13:45 116/59 L 08/24/22 13:30 80 13 95 08/24/22 13:30 127/67 08/24/22 15:18 70 08/24/22 15:20 36.8 C 68 15 110/56 L 96 08/24/22 13:15 73 21 96 08/24/22 13:15 130/66 08/24/22 13:00 71 19 97 08/24/22 13:00 123/65 08/24/22 12:45 72 15 96 08/24/22 12:45 128/85 08/24/22 12:30 74 18 97 08/24/22 12:30 122/64 08/24/22 12:20 139/64 08/24/22 12:20 83 19 08/24/22 12:15 83 17 08/24/22 12:10 137/70 08/24/22 12:10 80 13 08/24/22 12:00 76 14 08/24/22 12:00 133/63 08/24/22 11:50 88 19 92 08/24/22 11:50 140/74 08/24/22 11:45 87 19 90 08/24/22 11:42 134/67 08/24/22 11:42 85 18 08/24/22 11:31 96 H 19 08/24/22 11:31 139/71 08/24/22 11:15 72 21 95 08/24/22 11:00 72 11 L 92 08/24/22 11:00 165/79 H 08/24/22 10:45 78 22 08/24/22 10:36 74 22 98 08/24/22 10:35 136/69 08/24/22 13:00 71 18 123/65 97 08/24/22 12:10 79 08/24/22 10:36 36.9 C 71 18 136/69 95 O2 Del Method O2 Flow Rate 08/24/22 15:45 08/24/22 15:41 08/24/22 15:41 08/24/22 15:30 08/24/22 15:15 08/24/22 15:00 08/24/22 15:00 08/24/22 14:49 08/24/22 14:49 08/24/22 14:45 08/24/22 14:41 08/24/22 14:41 08/24/22 14:40 08/24/22 14:15 08/24/22 14:00 08/24/22 13:45 08/24/22 13:45 08/24/22 13:30 08/24/22 13:30 08/24/22 15:18 08/24/22 15:20 Nasal Cannula 3 08/24/22 13:15 08/24/22 13:15 08/24/22 13:00 08/24/22 13:00 08/24/22 12:45 08/24/22 12:45 08/24/22 12:30 08/24/22 12:30 08/24/22 12:20 08/24/22 12:20 08/24/22 12:15 08/24/22 12:10 08/24/22 12:10 08/24/22 12:00 08/24/22 12:00 08/24/22 11:50 08/24/22 11:50 08/24/22 11:45 08/24/22 11:42 08/24/22 11:42 08/24/22 11:31 08/24/22 11:31 08/24/22 11:15 08/24/22 11:00 08/24/22 11:00 08/24/22 10:45 08/24/22 10:36 08/24/22 10:35 08/24/22 13:00 Room Air 08/24/22 12:10 08/24/22 10:36 Room Air Lab & Micro Results (Past 24 Hours) RBC 4.42 M/uL (4.70-6.10) L 08/24/22 WBC 9.38 K/ul (4.8-10.8) 08/24/22 Hgb 13.4 g/dl (14.0-18.0) L 08/24/22 Hct 38.4 % (42.0-52.0) L 08/24/22 MCV 86.9 fL (80.0-100.0) 08/24/22 MCH 30.3 pg (25.0-34.0) 08/24/22 MCHC 34.9 g/dL (32.0-36.0) 08/24/22 RDW Standard Deviation 40.3 fL (36.4-46.3) 08/24/22 RDW Coefficient of Variation 12.7 % (11.5-14.5) 08/24/22 Plt Count 285 K/uL (130-400) 08/24/22 MPV 10.8 fL (9.4-12.4) 08/24/22 Neutrophils (%) (Auto) 63.2 % 08/24/22 Lymphocytes (%) (Auto) 30.2 % 08/24/22 Monocytes # (Auto) 0.45 K/uL (0.11-0.59) 08/24/22 Eosinophils # (Auto) 0.10 K/uL (0-0.50) 08/24/22 Immature Granulocyte % (Auto) 0.2 % 08/24/22 Neutrophils # (Auto) 5.93 K/uL (1.40-6.50) 08/24/22 Lymphocytes # (Auto) 2.83 K/uL (1.2-3.4) 08/24/22 Monocytes # (Auto) 0.45 K/uL (0.11-0.59) 08/24/22 Eosinophils # (Auto) 0.10 K/uL (0-0.50) 08/24/22 Basophils # (Auto) 0.05 K/uL (0-0.2) 08/24/22 Immature Granulocyte # (Auto) 0.02 K/uL (0.01-0.20) 3 Na 140 mmol/L (136-145) 08/24/22 K 3.4 mmol/L (3.5-5.1) L 08/24/22 Cl 104 mmol/L (98-107) 08/24/22 CO2 24 mmol/L (21-32) 08/24/22 Anion Gap 12 (3-11) H 08/24/22 BUN 22 mg/dl (6-23) 08/24/22 Creatinine 1.19 mg/dl (0.6-1.4) 08/24/22 Estimated GFR ( Amer) 72.3 ml/min 08/24/22 Estimated GFR (Non-Af Amer) 62.4 ml/min 08/24/22 BUN/Creatinine Ratio 18.5 (10-20) 08/24/22 Glu 167 mg/dl (70-99(Fasting)) H 08/24/22 Ca 9.9 mg/dl (8.6-10.3) 08/24/22 Total Bilirubin 1.4 mg/dl (0.2-1.0) H 08/24/22 AST 18 U/L (13-39) 08/24/22 ALT 13 U/L (7-52) 08/24/22 Alkaline Phosphatase 57 U/L (34-104) 08/24/22 TP 7.3 gm/dl (6.0-8.3) 08/24/22 Albumin 4.5 gm/dl (3.4-5.0) 08/24/22 Globulin 2.8 gm/dl (2.5-4.0) 08/24/22 Albumin/Globulin Ratio 1.6 (0.9-2) 08/24/22 Mg 1.5 mg/dl (1.7-2.4) L 08/24/22 10:42 Calcium Level 9.9 mg/dl (8.6-10.3) 08/24/22 10:42 Prothromb Time International Ratio 1.0 (0.9-1.1) 08/24/22 10:4 2 Diagnostic Findings (Past 24 Hours) Chest X-Ray 08/24/22 00:00 XR chest 1V portable CLINICAL HISTORY: ILLNESS TECHNIQUE: Single frontal radiograph of the chest was obtained. Comparison: None available at the time of this dictation. FINDINGS: No lines and tubes are seen. The cardiomediastinal silhouette is normal. The lungs are clear. No evidence of pleural effusion or pneumothorax. IMPRESSION: No acute chest disease. ACT 112: Negative or not required by law. Electronically signed by: Bassam Gonzalez M.D. 08/24/2022 12:[address] 08/24/22 11:06 CT head/brain wo con CLINICAL HISTORY: neuro deficit, acute stroke suspected Technique: Contiguous axial CT images of the head were acquired from the base of the skull to the vertex without intravenous contrast administration. Images were viewed in brain, subdural and bone windows. Automated dose lowering techniques and/or adjustment according to patient size were utilized for this exam. Comparison: Comparison is made to CTA head and neck 08/25/2019 Findings: The ventricles, basal cisterns, and cerebral sulci are normal. There is no acute intracranial hemorrhage or evidence of acute territorial infarction. Neither mass effect, shift of the midline structures, nor abnormal extra-axial fluid collections are shown. Imaged portions of the paranasal sinuses and mastoid air cells are clear. The orbits appear normal. There are no acute fractures of the calvaria or scalp swelling. Impression: No acute intracranial hemorrhage, no evidence of acute territorial infarction or other acute intracranial disease process. ACT 112: Negative or not required by law. Electronically signed by: Bassam Gonzalez M.D. 08/24/2022 11:34 AM Head CTA 08/24/22 11:06 CT angio head w con CLINICAL HISTORY: 67 years-old Male with neuro deficit, acute stroke suspected. Acute strokelike symptoms headache COMPARISON STUDY: Head CT of same day TECHNIQUE: Following the IV administration of 150 cc of Optiray, CT angiogram of the brain was performed from the skull base to the vertex. Images are reviewed in the axial, sagittal, and coronal planes. 3-D MIPS images are created and assessed. IV contrast was administered without complication. All measurements were obtained according to NASCET criteria. A dose lowering technique was utilized adhering to the principles of ALARA. FINDINGS: CT ANGIOGRAM OF THE BRAIN: The imaged bilateral internal carotid arteries are patent. The bilateral anterior and middle cerebral arteries are also patent. The vertebrobasilar system and posterior cerebral arteries are widely patent. Diminutive right vertebral artery is likely developmental. Diminutive basilar artery with origin of the posterior cerebral arteries. Mild fusiform dilation of the basilar tip measures up to 2.8 cm, likely secondary to normal vascular pedicle origin. There is no aneurysm, high-grade stenosis, or proximal branch occlusion identified. Dural sinuses appear patent. Asymmetric extra-axial space with CSF attenuation adjacent to the left cerebral hemisphere measures up to 5 mm. Involutional changes with suggestion of mild chronic microvascular ischemic disease. IMPRESSION: 1. Unremarkable CTA of the head. 2. 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 3. Involutional changes with suggestion of mild chronic microvascular ischemic disease. ACT 112: Negative or not required by law. The above report was generated using voice recognition software. It may contain grammatical, syntax or spelling errors. Electronically signed by: Rolf Luna M.D. 08/24/2022 11:54 AM Neck CTA 08/24/22 11:06 CT ANGIOGRAPHY OF THE NECK WITH CONTRAST CLINICAL HISTORY: neuro deficit, acute stroke suspected. Blurred vision. Right arm weakness. COMPARISON STUDY: No previous studies for comparison. Technique: CT angiography of the carotid and vertebral arteries was obtained using Optiray and 3D reconstruction on an independent workstation. NASCET criteria was utilized. Automated exposure control was utilized for the study. A dose lowering technique was utilized adhering to the principles of ALARA. CT DOSE: 1543.24 mGy.cm Findings: Visualized portions of the lung apices are unremarkable. There is no cervical spine fracture. There is no cervical lymphadenopathy. The left vertebral artery is dominant and patent. The right vertebral artery is diminutive on a congenital basis. The bilateral common carotid and cervical internal carotid arteries are patent. There is mild plaque within these vessels. There is no stenosis or dissection within the neck. There is no aneurysm within the neck. IMPRESSION: No stenosis or dissection within the bilateral common carotid, cervical internal carotid or vertebral arteries. Mild atherosclerotic plaque. ACT 112: Negative or not required by law. Electronically signed by: Tonio Piña M.D. 08/24/2022 11:43 AM I & O Totals 24 Hours 08/23/22 08/24/22 08/25/22 06:59 06:59 06:59 Intake Total 100 / 100 Output Total 0 / 0 Balance 100 / 100 Cumulative 08/24/22 10:20 thru 08/24/22 16:10 Intake Total 100 Output Total 0 Balance 100 RT Ventilator Mngmt (Last Documented) Ventilator Ordered Settings Respiratory Rate 17 08/24/22 15:45 Ventilator - PT Measurements Respiratory Rate 17 Coding Level of Care Code 63254 CRITICAL CARE 1ST 30-74M Diagnoses Stroke-like symptoms R29.90 Hypomagnesemia E83.42 Thrombolytic medication administered within last 5 days Z78.9 Hypokalemia E87.6 HTN (hypertension) I10 Hyperlipidemia E78.5 DM II (diabetes mellitus, type II), controlled E11.9
[2022-08-24] MEDS ORDERED: ICU Protocol for HYPERglycemia SCH (16:30)
[2022-08-24] MEDS ORDERED: INSULIN ASPART PER UNIT CHARGE SC SCH ×2 (16:30→18:30)
[2022-08-24] MEDS: MAGNESIUM SULFATE / D5W 1 GM/100 ML BAG IV SCH ×2 (16:49→19:44)
[2022-08-24] MEDS ORDERED: Nursing to Pharmacy Communication SCH (19:15)
--- NOTE | 2022-08-24 19:32 | Magnetic Resonance Report ---
MRI OF THE BRAIN WITHOUT CONTRAST CLINICAL HISTORY: stroke like symptoms, S/P TNK COMPARISON STUDY: Head CT and CTA of the head August 24, 2022. TECHNIQUE: Utilizing a 1.5 Saranya magnet and dedicated coil, multiplanar, multiecho imaging of the bra in was performed without IV contrast. FINDINGS: Note is made of a 4.8 x 2.8 cm focus of restricted diffusion within the inferior right cere bellar hemisphere and a 4.6 x 2.9 cm focus of restricted diffusion within the superior right cerebell ar hemisphere. There is no evidence for hemorrhagic conversion. There is minimal mass effect with sli ght effacement of the fourth ventricle. Ventricular system is otherwise unremarkable. Basal cisterns are patent. Prominence of the extra-axial spaces is noted. This is due to mild atrophy. No intracrani al masses identified on this unenhanced examination. Scattered white matter T2 hyperintense foci sugg est small vessel disease. Calvarial signal is within normal limits. 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 No evidence for hemorrhagic conversion. Mild mass effect with slight effacement of the fourth ventricle. Short-term follow-up head CT in 12 to 24 hours is recommen ded to reassess mass effect. These findings will be called/faxed to the ordering provider at time of dictation. ACT 112: Negative or not required by law. Electronically signed by: Tonio Piña M.D. 08/24/2022 7:30 PM
[2022-08-24 20:38] LABS: Appearance Urine Clear (Clear); Bilirubin Urine Negative (Negative); Blood Urine Negative (Negative); Color Urine Yellow; Glucose Urine UA 3+ (Negative); Ketones Urine Negative (Negative); Leukocyte Esterase Urine Negative (Negative); Nitrite Urine Negative (Negative); Protein Urine Negative (Negative); Specific Gravity Urine > 1.045 (1.000-1.030); Urobilinogen Urine Negative (Negative)
[2022-08-24] MEDS ORDERED: LANTUS PER UNIT CHARGE SQ SCH (21:00)
[2022-08-24] MEDS: ATORVASTATIN 40 MG TAB PO SCH (21:29)
[2022-08-24] MEDS: INSULIN ASPART PER UNIT CHARGE SC SCH (21:30)
[2022-08-24] MEDS ORDERED: PHARMACY GLYCEMIC MGMT CONSULT PRN (22:06)
[2022-08-25] MEDS: ACETAMINOPHEN 325 MG TAB PO PRN ×5 (02:32→19:40)
[2022-08-25 06:23] LABS: Albumin Globulin Ratio 1.5 (0.9-2); Albumin Level 3.6 gm/dl (3.4-5.0); BUN Creatinine Ratio 17.3 (10-20); Bilirubin,Total 1.4 mg/dl (0.2-1.0); Calcium 8.9 mg/dl (8.6-10.3); Chol HDL Ratio 2.3 (0-5); Creatinine Clr Calc Pharmacy 67.4 ml/min; Est GFR (African American) 91.4 ml/min; Est GFR (Non-African American) 78.9 ml/min; Globulin 2.4 gm/dl (2.5-4.0); Magnesium 1.9 mg/dl (1.7-2.4)
[2022-08-25] MEDS: SODIUM CHLORIDE 0.9% 1000ML 1,000 ML IV SCH (06:26)
[2022-08-25 06:28] LABS: Basophils # (auto) 0.04 K/uL (0-0.2); Basophils % (auto) 0.4 %; Eosinophils # (auto) 0.04 K/uL (0-0.50); Eosinophils % (auto) 0.4 %; Hematocrit (blood only) 32.3 % (42.0-52.0); Hemoglobin 10.9 g/dl (14.0-18.0); Immature Granulocytes # (auto) 0.04 K/uL (0.01-0.20); Immature Granulocytes % (auto) 0.4 %; Lymphocytes % (auto) 14.4 %; Mean Corpuscular Hemoglobin 29.9 pg (25.0-34.0); Mean Corpuscular Hgb Conc 33.7 g/dL (32.0-36.0); Mean Corpuscular Volume 88.7 fL (80.0-100.0); Mean Platelet Volume 10.5 fL (9.4-12.4); Monocytes # (auto) 0.59 K/uL (0.11-0.59); Monocytes % (auto) 5.7 %; Neutrophils # (auto) 8.19 K/uL (1.40-6.50); Neutrophils % (auto) 78.7 %; Platelet Count 215 K/uL (130-400); RDW Coefficient of Variation 12.3 % (11.5-14.5); RDW Standard Deviation 39.9 fL (36.4-46.3); Red Blood Count 3.64 M/uL (4.70-6.10)
--- NOTE | 2022-08-25 06:33 | CT Scan Report ---
CT OF THE HEAD WITHOUT CONTRAST CLINICAL HISTORY: post TNKASE administration with acute CVA COMPARISON STUDY: Head CT, CTA of the head and MRI of the brain August 24, 2022. CT DOSE: 625.80 mGy.cm TECHNIQUE: Helical axial images of the head were obtained without IV contrast. Automated exposure con trol was utilized for the study. A dose lowering technique was utilized adhering to the principles o f ALARA. FINDINGS: Note is made of acute infarcts within the superior and inferior aspects of the right cerebe llar hemisphere, as shown on MRI of August 24, 2022. There is no evidence for hemorrhagic conversion. T here is mild mass effect with slight effacement of the fourth ventricle. There is no hydrocephalus. V entricular system is otherwise normal. Basal cisterns are patent. There are no extra-axial collection s. IMPRESSION: Redemonstration of the acute infarcts within the right cerebellar hemisphere, as describ ed above. No evidence for hemorrhagic conversion. Mild mass effect with slight effacement of the four th ventricle. No hydrocephalus. A follow-up head CT in 24 hours to reassess mass effect is recommende d. ACT 112: Negative or not required by law. Electronically signed by: Tonio Piña M.D. 08/25/2022 6:31 AM
[2022-08-25 06:37] LABS: Prothrombin Time 11.2 Seconds (9.0-12.0)
[2022-08-25 07:05] LABS: Estimated Average Glucose 140 mg/dl; Hemoglobin A1C 6.5 % (4.5-5.6)
[2022-08-25] MEDS: INSULIN ASPART PER UNIT CHARGE SC SCH ×4 (07:58→20:58)
--- NOTE | 2022-08-25 09:39 | Critical Care Progress Note ---
Date of Service August 25, 2022 Assessment & Plan (1) Stroke-like symptoms: Plan: Reason Critically Ill: 67-year-old male with strokelike symptoms who received TNKase at 12:33 PM PLAN: Neuro: Strokelike symptoms -Cerebellar infarct noted on MRI -CT scan reviewed repeat ordered for 0700 tomorrow CV: Hypertension -Continue home regimen Fluids/Renal: Mild hypokalemia: Resolved Hypomagnesemia: Resolved GI/Nutrition: Passed bedside swallow -Heart healthy diet Hypercholesterolemia -Continue atorvastatin 80 mg Heme: Anemia -Follow-up as outpatient DVT prophylaxis: Chemoprophylaxis contraindicated secondary to recent thrombolytics Endocrine: ICU hyperglycemia protocol Sliding scale insulin as needed -Hold metformin Vascular access: Peripheral IVs Code Status: DNR/DNI in event of cardiac arrest Disposition: Stable for downgrade out of ICU (2) Hypomagnesemia: (3) Thrombolytic medication administered within last 5 days: (4) Hypokalemia: (5) HTN (hypertension): (6) Hyperlipidemia: (7) DM II (diabetes mellitus, type II), controlled: Admission and Anticipated Discharge Date Admission Date: August 24, 2022 Subjective Headache still present however improved compared to yesterday Physical Exam Physical Exam: General: Alert. nontoxic. Skin: Warm, dry, Head: Atraumatic Ears, nose, mouth and throat: airway patent Cardiovascular: Normal peripheral perfusion Respiratory: no respiratory distress Gastrointestinal: Non distended Musculoskeletal: No deformity Results & Data Results & Data Vital Signs (Past 12 Hours) Vital Signs Temp Pulse Pulse Resp BP Pulse Ox O2 Del Method 08/25/22 08:00 57 L 08/25/22 08:06 Room Air 08/25/22 07:35 36.8 C 08/25/22 06:30 62 14 99/49 L 95 Room Air 08/25/22 05:30 57 L 14 90/67 L 92 Room Air 08/25/22 04:30 37.1 C 61 16 112/58 L 93 Room Air 08/25/22 03:30 55 L 14 108/54 L 92 Room Air 08/25/22 02:30 61 17 103/49 L 93 Room Air 08/25/22 01:30 61 14 100/46 L 93 Room Air 08/25/22 00:30 37.2 C 65 18 96/45 L 94 Room Air 08/24/22 23:30 57 L 15 96/51 L 92 Room Air 08/24/22 22:30 60 19 93/45 L 92 Room Air Critical Care Results & Data Vital Signs (Past 12 Hours) Vital Signs Temp Pulse Pulse Resp BP Pulse Ox O2 Del Method 08/25/22 08:00 57 L 08/25/22 08:06 Room Air 08/25/22 07:35 36.8 C 08/25/22 06:30 62 14 99/49 L 95 Room Air 08/25/22 05:30 57 L 14 90/67 L 92 Room Air 08/25/22 04:30 37.1 C 61 16 112/58 L 93 Room Air 08/25/22 03:30 55 L 14 108/54 L 92 Room Air 08/25/22 02:30 61 17 103/49 L 93 Room Air 08/25/22 01:30 61 14 100/46 L 93 Room Air 08/25/22 00:30 37.2 C 65 18 96/45 L 94 Room Air 08/24/22 23:30 57 L 15 96/51 L 92 Room Air 08/24/22 22:30 60 19 93/45 L 92 Room Air Lab & Micro Results (Past 24 Hours) RBC 3.64 M/uL (4.70-6.10) L 08/25/22 WBC 10.40 K/ul (4.8-10.8) 08/25/22 Hgb 10.9 g/dl (14.0-18.0) L 08/25/22 Hct 32.3 % (42.0-52.0) L 08/25/22 MCV 88.7 fL (80.0-100.0) 08/25/22 MCH 29.9 pg (25.0-34.0) 08/25/22 MCHC 33.7 g/dL (32.0-36.0) 08/25/22 RDW Standard Deviation 39.9 fL (36.4-46.3) 08/25/22 RDW Coefficient of Variation 12.3 % (11.5-14.5) 08/25/22 Plt Count 215 K/uL (130-400) 08/25/22 MPV 10.5 fL (9.4-12.4) 08/25/22 Neutrophils (%) (Auto) 78.7 % 08/25/22 Lymphocytes (%) (Auto) 14.4 % 08/25/22 Monocytes # (Auto) 0.59 K/uL (0.11-0.59) 08/25/22 Eosinophils # (Auto) 0.04 K/uL (0-0.50) 08/25/22 Immature Granulocyte % (Auto) 0.4 % 08/25/22 Neutrophils # (Auto) 8.19 K/uL (1.40-6.50) H 08/25/22 Lymphocytes # (Auto) 1.50 K/uL (1.2-3.4) 08/25/22 Monocytes # (Auto) 0.59 K/uL (0.11-0.59) 08/25/22 Eosinophils # (Auto) 0.04 K/uL (0-0.50) 08/25/22 Basophils # (Auto) 0.04 K/uL (0-0.2) 08/25/22 Immature Granulocyte # (Auto) 0.04 K/uL (0.01-0.20) 3 Na 137 mmol/L (136-145) 08/25/22 K 4.0 mmol/L (3.5-5.1) 08/25/22 Cl 106 mmol/L (98-107) 08/25/22 CO2 26 mmol/L (21-32) 08/25/22 Anion Gap 5 (3-11) 08/25/22 BUN 17 mg/dl (6-23) 08/25/22 Creatinine 0.98 mg/dl (0.6-1.4) 08/25/22 Estimated GFR ( Amer) 91.4 ml/min 08/25/22 Estimated GFR (Non-Af Amer) 78.9 ml/min 08/25/22 BUN/Creatinine Ratio 17.3 (10-20) 08/25/22 Glu 103 mg/dl (70-99(Fasting)) H 08/25/22 Ca 8.9 mg/dl (8.6-10.3) 08/25/22 Total Bilirubin 1.4 mg/dl (0.2-1.0) H 08/25/22 AST 15 U/L (13-39) 08/25/22 ALT 10 U/L (7-52) 08/25/22 Alkaline Phosphatase 47 U/L (34-104) 08/25/22 TP 6.0 gm/dl (6.0-8.3) 08/25/22 Albumin 3.6 gm/dl (3.4-5.0) 08/25/22 Globulin 2.4 gm/dl (2.5-4.0) L 08/25/22 Albumin/Globulin Ratio 1.5 (0.9-2) 08/25/22 Mg 1.9 mg/dl (1.7-2.4) 08/25/22 05:30 Calcium Level 8.9 mg/dl (8.6-10.3) 08/25/22 05:30 Prothromb Time International Ratio 1.0 (0.9-1.1) 08/25/22 05:3 0 Diagnostic Findings (Past 24 Hours) Chest X-Ray 08/24/22 00:00 XR chest 1V portable CLINICAL HISTORY: ILLNESS TECHNIQUE: Single frontal radiograph of the chest was obtained. Comparison: None available at the time of this dictation. FINDINGS: No lines and tubes are seen. The cardiomediastinal silhouette is normal. The lungs are clear. No evidence of pleural effusion or pneumothorax. IMPRESSION: No acute chest disease. ACT 112: Negative or not required by law. Electronically signed by: Bassam Gonzalez M.D. 08/24/2022 12:[address] 08/24/22 11:06 CT head/brain wo con CLINICAL HISTORY: neuro deficit, acute stroke suspected Technique: Contiguous axial CT images of the head were acquired from the base of the skull to the vertex without intravenous contrast administration. Images were viewed in brain, subdural and bone windows. Automated dose lowering techniques and/or adjustment according to patient size were utilized for this exam. Comparison: Comparison is made to CTA head and neck 08/25/2019 Findings: The ventricles, basal cisterns, and cerebral sulci are normal. There is no acute intracranial hemorrhage or evidence of acute territorial infarction. Neither mass effect, shift of the midline structures, nor abnormal extra-axial fluid collections are shown. Imaged portions of the paranasal sinuses and mastoid air cells are clear. The orbits appear normal. There are no acute fractures of the calvaria or scalp swelling. Impression: No acute intracranial hemorrhage, no evidence of acute territorial infarction or other acute intracranial disease process. ACT 112: Negative or not required by law. Electronically signed by: Bassam Gonzalez M.D. 08/24/2022 11:34 AM Head CTA 08/24/22 11:06 CT angio head w con CLINICAL HISTORY: 67 years-old Male with neuro deficit, acute stroke suspected. Acute strokelike symptoms headache COMPARISON STUDY: Head CT of same day TECHNIQUE: Following the IV administration of 150 cc of Optiray, CT angiogram of the brain was performed from the skull base to the vertex. Images are reviewed in the axial, sagittal, and coronal planes. 3-D MIPS images are created and assessed. IV contrast was administered without complication. All measurements were obtained according to NASCET criteria. A dose lowering technique was utilized adhering to the principles of ALARA. FINDINGS: CT ANGIOGRAM OF THE BRAIN: The imaged bilateral internal carotid arteries are patent. The bilateral anterior and middle cerebral arteries are also patent. The vertebrobasilar system and posterior cerebral arteries are widely patent. Diminutive right vertebral artery is likely developmental. Diminutive basilar artery with origin of the posterior cerebral arteries. Mild fusiform dilation of the basilar tip measures up to 2.8 cm, likely secondary to normal vascular pedicle origin. There is no aneurysm, high-grade stenosis, or proximal branch occlusion identified. Dural sinuses appear patent. Asymmetric extra-axial space with CSF attenuation adjacent to the left cerebral hemisphere measures up to 5 mm. Involutional changes with suggestion of mild chronic microvascular ischemic disease. IMPRESSION: 1. Unremarkable CTA of the head. 2. 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 3. Involutional changes with suggestion of mild chronic microvascular ischemic disease. ACT 112: Negative or not required by law. The above report was generated using voice recognition software. It may contain grammatical, syntax or spelling errors. Electronically signed by: Rolf Luna M.D. 08/24/2022 11:54 AM Neck CTA 08/24/22 11:06 CT ANGIOGRAPHY OF THE NECK WITH CONTRAST CLINICAL HISTORY: neuro deficit, acute stroke suspected. Blurred vision. Right arm weakness. COMPARISON STUDY: No previous studies for comparison. Technique: CT angiography of the carotid and vertebral arteries was obtained using Optiray and 3D reconstruction on an independent workstation. NASCET criteria was utilized. Automated exposure control was utilized for the study. A dose lowering technique was utilized adhering to the principles of ALARA. CT DOSE: 1543.24 mGy.cm Findings: Visualized portions of the lung apices are unremarkable. There is no cervical spine fracture. There is no cervical lymphadenopathy. The left vertebral artery is dominant and patent. The right vertebral artery is diminutive on a congenital basis. The bilateral common carotid and cervical internal carotid arteries are patent. There is mild plaque within these vessels. There is no stenosis or dissection within the neck. There is no aneurysm within the neck. IMPRESSION: No stenosis or dissection within the bilateral common carotid, cervical internal carotid or vertebral arteries. Mild atherosclerotic plaque. ACT 112: Negative or not required by law. Electronically signed by: Tonio Piña M.D. 08/24/2022 11:43 AM Brain MRI 08/24/22 13:16 MRI OF THE BRAIN WITHOUT CONTRAST CLINICAL HISTORY: stroke like symptoms, S/P TNK COMPARISON STUDY: Head CT and CTA of the head August 24, 2022. TECHNIQUE: Utilizing a 1.5 Saranya magnet and dedicated coil, multiplanar, multiecho imaging of the brain was performed without IV contrast. FINDINGS: Note is made of a 4.8 x 2.8 cm focus of restricted diffusion within the inferior right cerebellar hemisphere and a 4.6 x 2.9 cm focus of restricted diffusion within the superior right cerebellar hemisphere. There is no evidence for hemorrhagic conversion. There is minimal mass effect with slight effacement of the fourth ventricle. Ventricular system is otherwise unremarkable. Basal cisterns are patent. Prominence of the extra-axial spaces is noted. This is due to mild atrophy. No intracranial masses identified on this unenhanced examination. Scattered white matter T2 hyperintense foci suggest small vessel disease. Calvarial signal is within normal limits. 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 No evidence for hemorrhagic conversion. Mild mass effect with slight effacement of the fourth ventricle. Short-term follow-up head CT in 12 to 24 hours is recommended to reassess mass effect. These findings will be called/faxed to the ordering provider at time of dictation. ACT 112: Negative or not required by law. Electronically signed by: Tonio Piña M.D. 08/24/2022 7:[address] 08/25/22 05:00 CT OF THE HEAD WITHOUT CONTRAST CLINICAL HISTORY: post TNKASE administration with acute CVA COMPARISON STUDY: Head CT, CTA of the head and MRI of the brain August 24, 2022. CT DOSE: 625.80 mGy.cm TECHNIQUE: Helical axial images of the head were obtained without IV contrast. Automated exposure control was utilized for the study. A dose lowering technique was utilized adhering to the principles of ALARA. FINDINGS: Note is made of acute infarcts within the superior and inferior aspects of the right cerebellar hemisphere, as shown on MRI of August 24, 2022. There is no evidence for hemorrhagic conversion. There is mild mass effect with slight effacement of the fourth ventricle. There is no hydrocephalus. Ventricular system is otherwise normal. Basal cisterns are patent. There are no extra-axial collections. IMPRESSION: Redemonstration of the acute infarcts within the right cerebellar hemisphere, as described above. No evidence for hemorrhagic conversion. Mild mass effect with slight effacement of the fourth ventricle. No hydrocephalus. A follow-up head CT in 24 hours to reassess mass effect is recommended. ACT 112: Negative or not required by law. Electronically signed by: Tonio Piña M.D. 08/25/2022 6:31 AM I & O Totals 24 Hours 08/24/22 08/25/22 08/26/22 06:59 06:59 06:59 Intake Total 3847.5 / 3847.5 150 / 150 Output Total 1525 / 1525 400 / 400 Balance 2322.5 / 2322.5 -250 / -250 Cumulative 08/24/22 10:20 thru 08/25/22 09:26 Intake Total 3997.5 Output Total 1925 Balance 2072.5 RT Ventilator Mngmt (Last Documented) Ventilator Ordered Settings Respiratory Rate 14 08/25/22 06:30 Ventilator - PT Measurements Respiratory Rate 14 Coding Level of Care Code 13708 SUB INP/OBS CARE 3/50MIN Diagnoses Stroke-like symptoms R29.90 Hypomagnesemia E83.42 Thrombolytic medication administered within last 5 days Z78.9 Hypokalemia E87.6 HTN (hypertension) I10 Hyperlipidemia E78.5 DM II (diabetes mellitus, type II), controlled E11.9
--- NOTE | 2022-08-25 09:45 | Neurology Consultation ---
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 He is doing very well from a symptom perspective but primary concern is for swelling in the posterior fossa given the size of the infarcts. Peak swelling is typically 3-5 days. Would continue at least q2 neuro checks with daily AM head CTs to monitor swelling, would check interval CT head if he develops symptoms or becomes lethargic/confused. -- q2h neuro checks for next 24 hours -- Repeat CT head in AM tomorrow or with change in neuro status -- Continue Aspirin 81mg daily -- Continue atorvastatin 80mg daily -- No role for steroids but can consider sodium goal 140-145 with salt tabs. -- Echo pending -- We will continue to follow Telehealth Consultation Telehealth Information Telehealth Information: I performed this visit using a real-time telehealth connection between my location and the patients location ([facility]). After connecting through interactive tele-video, patient was identified by name and date of and/or wristband check.Patient (or authorized healthcare telephone sales representative) was informed that this was a telemedicine visit and it was being conducted confidentially over secure lines. My office door was closed and no one else was present in the room with me.Patient (or authorized healthcare telephone sales representative) provided consent to proceed with the visit, expressed an understanding of privacy and security of the telemedicine visit, and gave permission to have a hospital telephone sales representative in the room in order to assist with the visit and to conduct portions of the visit, as needed. I informed the patient (or authorized healthcare telephone sales representative) that I reviewed their record and presented the opportunity for them to ask any questions regarding the visit today. The patient agreed to participate. History of Present Illness Reason for Consultation: Cerebellar stroke Requesting Physician: Dr. Barton Attending Physician: Dax Barton MD History of Present Illness Edu Alexander is a 67 yo M presenting with right sided ataxia and weakness now s/p TNK. This morning the patient states that his symptoms are significantly improved with only mild discoordination on the R side and a mild intermittent headache that has been treated with tylenol. He otherwise denies any dizziness, vision changes or speech changes. No history of stroke in past. Allergies Allergy/AdvReac Type Severity Reaction Status Date / Time Unable to Assess Allergy Unverified 08/24/22 12:23 Home Medications Medication Instructions Recorded Confirmed Type atorvastatin 80 mg tablet 80 mg PO HS 08/24/22 08/24/22 History lisinopril 20 1 tab PO DAILY 08/24/22 08/24/22 History mg-hydrochlorothiazide 25 mg tablet metformin 1,000 mg tablet 1,000 mg PO BID 08/24/22 08/24/22 History semaglutide 0.25 mg or 0.5 mg (2 0.5 mg subcut WK 08/24/22 08/24/22 History mg/1.5 mL) subcutaneous pen injector (Ozempic) Patient History Social History Smoking Status: Former smoker Smoking End Date: 25 years ago; Second Hand Exposure: No; Do You Dip or Chew Tobacco: No; Tobacco Cessation Education Requested by Patient: No Hx Alcohol Use: No Hx Substance Use: No Preferred Language: Occitan Communication Ability: Effective Junior Linux Administrator Required: No Beliefs That Will Affect Care: None Current Living Situation: Alone Other Information That Helps Us Care for You: No Feels Safe at Home: Yes Safety Concerns: Feels Safe At This Time Assistive Devices: Denture - Upper and Glasses Review of Systems +headache Physical Exam Neurological Examination: Mental Status: Awake and alert. Oriented to person, place, and time. Fluent. Comprehension intact. Affect appropriate. Cranial Nerves: II: pupils 3/3 to 2/2, martinez grossly intact. III/IV/: Versions intact without nystagmus, no gaze preference. V: Facial sensation symmetric to light touch VII: Facial expression symmetric VIII: Hearing intact to voice IX/X: Palate elevates symmetrically XI: Shoulder shrug symmetric XII: Tongue midline Motor: Strength was symmetric and antigravity throughout. Pronator drift was absent. There were no abnormal movements. Sensory: Sensation to light touch was intact. Coordination: +ataxia in the RUE and RLE. Reflexes: Unable to assess over telemedicine Results & Data Vital Signs (Past 12 Hours) Vital Signs Temp Pulse Pulse Resp BP Pulse Ox O2 Del Method 08/25/22 08:00 57 L 08/25/22 08:06 Room Air 08/25/22 07:35 36.8 C 08/25/22 06:30 62 14 99/49 L 95 Room Air 08/25/22 05:30 57 L 14 90/67 L 92 Room Air 08/25/22 04:30 37.1 C 61 16 112/58 L 93 Room Air 08/25/22 03:30 55 L 14 108/54 L 92 Room Air 08/25/22 02:30 61 17 103/49 L 93 Room Air 08/25/22 01:30 61 14 100/46 L 93 Room Air 08/25/22 00:30 37.2 C 65 18 96/45 L 94 Room Air 08/24/22 23:30 57 L 15 96/51 L 92 Room Air 08/24/22 22:30 60 19 93/45 L 92 Room Air Laboratory Results Abnormal lab results 08/24/22 08/24/22 08/24/22 Range/Units 10:42 10:42 10:42 RBC 4.42 L (4.70-6.10) M/uL Hgb 13.4 L (14.0-18.0) g/dl POC Hgb (14.0-18.0) g/dl Hct 38.4 L (42.0-52.0) % POC Hct (42-52) % Neut # (Auto) (1.40-6.50) K/uL APTT 20.1 L (21.0-31.0) Seconds Potassium 3.4 L (3.5-5.1) mmol/L POC Total CO2 (24-31) mmol/L Anion Gap 12 H (3-11) POC BUN (7-18) mg/dl Glucose 167 H (70-99(Fasting)) mg/dl POC Glucose (70-99) mg/dl POC Glucose (other) (70-99) mg/dl Hemoglobin A1c (4.5-5.6) % Magnesium 1.5 L (1.7-2.4) mg/dl Total Bilirubin 1.4 H (0.2-1.0) mg/dl Globulin (2.5-4.0) gm/dl Ur Specific [place] (1.000-1.030) Urine Glucose (UA) (Negative) 08/24/22 08/24/22 08/24/22 Range/Units 10:50 11:18 16:58 RBC (4.70-6.10) M/uL Hgb (14.0-18.0) g/dl POC Hgb 12.2 L (14.0-18.0) g/dl Hct (42.0-52.0) % POC Hct 36 L (42-52) % Neut # (Auto) (1.40-6.50) K/uL APTT (21.0-31.0) Seconds Potassium (3.5-5.1) mmol/L POC Total CO2 21 L (24-31) mmol/L Anion Gap (3-11) POC BUN 21 H (7-18) mg/dl Glucose (70-99(Fasting)) mg/dl POC Glucose 197 H 118 H (70-99) mg/dl POC Glucose (other) 212 H (70-99) mg/dl Hemoglobin A1c (4.5-5.6) % Magnesium (1.7-2.4) mg/dl Total Bilirubin (0.2-1.0) mg/dl Globulin (2.5-4.0) gm/dl Ur Specific [place] (1.000-1.030) Urine Glucose (UA) (Negative) 08/24/22 08/24/22 08/25/22 Range/Units 19:45 21:28 05:30 RBC (4.70-6.10) M/uL Hgb (14.0-18.0) g/dl POC Hgb (14.0-18.0) g/dl Hct (42.0-52.0) % POC Hct (42-52) % Neut # (Auto) (1.40-6.50) K/uL APTT (21.0-31.0) Seconds Potassium (3.5-5.1) mmol/L POC Total CO2 (24-31) mmol/L Anion Gap (3-11) POC BUN (7-18) mg/dl Glucose (70-99(Fasting)) mg/dl POC Glucose 133 H (70-99) mg/dl POC Glucose (other) (70-99) mg/dl Hemoglobin A1c 6.5 H (4.5-5.6) % Magnesium (1.7-2.4) mg/dl Total Bilirubin (0.2-1.0) mg/dl Globulin (2.5-4.0) gm/dl Ur Specific [place] > 1.045 H (1.000-1.030) Urine Glucose (UA) 3+ H (Negative) 08/25/22 08/25/22 08/25/22 Range/Units 05:30 05:30 07:37 RBC 3.64 L (4.70-6.10) M/uL Hgb 10.9 L (14.0-18.0) g/dl POC Hgb (14.0-18.0) g/dl Hct 32.3 L (42.0-52.0) % POC Hct (42-52) % Neut # (Auto) 8.19 H (1.40-6.50) K/uL APTT (21.0-31.0) Seconds Potassium (3.5-5.1) mmol/L POC Total CO2 (24-31) mmol/L Anion Gap (3-11) POC BUN (7-18) mg/dl Glucose 103 H (70-99(Fasting)) mg/dl POC Glucose 109 H (70-99) mg/dl POC Glucose (other) (70-99) mg/dl Hemoglobin A1c (4.5-5.6) % Magnesium (1.7-2.4) mg/dl Total Bilirubin 1.4 H (0.2-1.0) mg/dl Globulin 2.4 L (2.5-4.0) gm/dl Ur Specific [place] (1.000-1.030) Urine Glucose (UA) (Negative) Diagnostic Findings CTA with intermitten occlusion of the R VA with distal reconstitution. Clot seen in the R SCA. MRI - R PICA and R SCA territory infarcts noted. CT head 08/25 - early mass effect on the fourth ventricle, no evidence of hydrocephalus.
--- NOTE | 2022-08-25 10:14 | Pharmacy Report ---
Pharmacy Glycemic Short Note 2 - Date of Service August 25, 2022 - Glycemic Short BSG Results (Last 24 hours): 08/24/22 08/24/22 08/24/22 10:42 10:50 11:18 Glucose 167 H POC Glucose 197 H POC Glucose (other) 212 H 08/24/22 08/24/22 08/25/22 16:58 21:28 05:30 Glucose 103 H POC Glucose 118 H 133 H POC Glucose (other) 08/25/22 07:37 Glucose POC Glucose 109 H POC Glucose (other) OUTPATIENT ANTIDIABETIC REGIMEN: * metformin 1gm PO BID * semaglutide 0.5mg SQ weekly HbA1C: 6.5% ASSESSMENT: * Pt is a 67 YO male admitted with a cerebellar stroke s/p TNKase. History of DM2. Pharmacy consulted to assist with inpatient glycemic management. * BSGs within goal since admission: [phone]/dL. Received 5 units of basal and 0 units of bolus insulin yesterday. * Ordered a diet- other stressors stable * Will discontinue basal at this time, and plan for Novolog ACHS per scale given controlled with metformin/Ozempic alone as an outpatient. Will titrate pending BSGs. PLAN FOR INPATIENT GLYCEMIC CONTROL: * Hold outpatient oral diabetes medications * Basal insulin * * Bolus insulin * NovoLog per scale ACHS or Q6hrs while NPO * Goal Range: Low 110 mg/dL - High 140 mg/dL * Correction Factor: 35 mg/dL/unit * Nutritional / Prandial insulin per carb ratio of 1 unit per 15 grams CHO consumed
--- NOTE | 2022-08-25 13:00 | Hospitalist Progress Note ---
Date of Service August 25, 2022 Assessment & Plan (1) Stroke-like symptoms: Plan: Acute ischemic probably embolic multiple infarcts in the right cerebellum. No evidence of hemorrhage after thrombolytic therapy. However he does have some edema. Daily head CT scan will be obtained. Appreciate neurological evaluation and recommendations. Cardiac echo report pending. Continue OT and PT (2) HTN (hypertension): Plan: Currently stable . PRN labetalol and BP parameters ordered . Hold Lisinopril- HCTZ for now (3) Hypokalemia: Plan: Corrected. Serial labs (4) Hypomagnesemia: Plan: Corrected. Serial labs (5) DM II (diabetes mellitus, type II), controlled: Plan: ADA diet. Holding metformin. Sliding scale coverage as needed. Low-dose Lantus has been ordered. (6) Hyperlipidemia: Plan: Stable.. Continue atorvastatin Plan It appears the patient will be able to be discharged home without the need for inpatient rehabilitation. Possibly home tomorrow, August 26 Admission and Anticipated Discharge Date Admission Date: August 24, 2022 Subjective Alert and oriented. No distress. Case discussed with neurology and critical care. Head CT scan reveals some edema from the cerebellar CVAs which are multiple and probably embolic. No evidence of any hemorrhage after thrombolytic therapy. Daily head CT scan will be obtained. He will be downgraded from ICU care today, August 25 Review of Systems Review of Systems: Constitutional-no fever or chills ENT-no blurred vision, no double vision, no epistaxis, no sore throat Respiratory-no cough, no wheezing, no shortness of breath Cardiac-no palpitations, no chest pain, no syncope GI-no nausea, vomiting, diarrhea, melena, hematochezia -no urinary retention, no urinary incontinence, no dysuria, no hematuria Musculoskeletal-no joint pain, no muscle tenderness Skin-no bruising, no rashes, no pruritus Neuro-no isolated weakness, no paresthesia, no weakness Psych-no depression, no anxiety Physical Exam Physical Exam: General-alert and oriented x3, no fevers, no chills HEENT-head atraumatic and normocephalic, pupils equal and reactive to light, extraocular muscles intact Neck-no lymphadenopathy or thyromegaly, trachea midline Chest-clear to auscultation percussion. No rales wheezing or rhonchi Cardiac-regular rate and rhythm, normal S1 and S2 Abdomen-normal bowel sounds, nontender, no hepatosplenomegaly Extremities-no cyanosis, clubbing, or edema Neuro-cranial nerves II through XII intact, motor and sensory function within normal limits, strength symmetrical 5/5, no focal deficits. Normal [id number] bilaterally. No evidence of dysdiadochokinesis Psych-normal affect, normal mood Results & Data Results & Data Vital Signs (Past 12 Hours) Vital Signs Temp Pulse Pulse Resp BP BP Pulse Ox 08/25/22 12:34 59 L 17 93 08/25/22 12:34 95/45 L 08/25/22 12:30 60 19 92 08/25/22 12:15 64 18 93 08/25/22 12:00 20 94 08/25/22 12:00 113/59 L 08/25/22 11:45 59 L 23 92 08/25/22 11:30 60 24 93 08/25/22 08:00 08/25/22 11:15 56 L 15 93 08/25/22 11:00 51 L 15 94 08/25/22 11:00 110/50 L 08/25/22 10:45 53 L 15 95 08/25/22 10:30 59 L 23 94 08/25/22 10:15 60 15 93 08/25/22 10:00 58 L 15 94 08/25/22 10:00 117/66 08/25/22 09:45 65 22 95 08/25/22 09:30 60 17 93 08/25/22 09:15 62 17 93 08/25/22 09:00 60 23 94 08/25/22 09:00 117/65 08/25/22 08:45 58 L 15 92 08/25/22 08:41 63 17 93 08/25/22 08:41 110/62 08/25/22 08:30 54 L 15 91 08/25/22 08:15 55 L 15 92 08/25/22 08:00 53 L 18 93 08/25/22 07:45 57 L 18 91 08/25/22 07:30 58 L 17 92 08/25/22 07:15 58 L 16 94 08/25/22 07:00 58 L 16 93 08/25/22 07:00 119/68 08/25/22 08:00 57 L 08/25/22 08:06 08/25/22 07:35 36.8 C 08/25/22 06:30 62 14 99/49 L 95 08/25/22 05:30 57 L 14 90/67 L 92 08/25/22 04:30 37.1 C 61 16 112/58 L 93 08/25/22 03:30 55 L 14 108/54 L 92 08/25/22 02:30 61 17 103/49 L 93 08/25/22 01:30 61 14 100/46 L 93 O2 Del Method 08/25/22 12:34 08/25/22 12:34 08/25/22 12:30 08/25/22 12:15 08/25/22 12:00 08/25/22 12:00 08/25/22 11:45 08/25/22 11:30 08/25/22 08:00 Room Air 08/25/22 11:15 08/25/22 11:00 08/25/22 11:00 08/25/22 10:45 08/25/22 10:30 08/25/22 10:15 08/25/22 10:00 08/25/22 10:00 08/25/22 09:45 08/25/22 09:30 08/25/22 09:15 08/25/22 09:00 08/25/22 09:00 08/25/22 08:45 08/25/22 08:41 08/25/22 08:41 08/25/22 08:30 08/25/22 08:15 08/25/22 08:00 08/25/22 07:45 08/25/22 07:30 08/25/22 07:15 08/25/22 07:00 08/25/22 07:00 08/25/22 08:00 08/25/22 08:06 Room Air 08/25/22 07:35 08/25/22 06:30 Room Air 08/25/22 05:30 Room Air 08/25/22 04:30 Room Air 08/25/22 03:30 Room Air 08/25/22 02:30 Room Air 08/25/22 01:30 Room Air Laboratory Results 08/25/22 05:30 08/25/22 05:30 PG Care Time/CCT Total # of Minutes Spent Total Time Spent with Patient: Total time spent is greater than 50% in coordination of care (as documented) at patient's floor/unit and/or counseling patient: Coding Level of Care Code 98198 SUB INP/OBS CARE 3/50MIN Diagnoses Stroke-like symptoms R29.90 HTN (hypertension) I10 Hypokalemia E87.6 Hypomagnesemia E83.42 DM II (diabetes mellitus, type II), controlled E11.9 Hyperlipidemia E78.5
--- NOTE | 2022-08-25 13:14 | Pharmacy Report ---
- Date of Service August 25, 2022 - Pharmacy CVA/TIA Medication Review Medications to Prevent Stroke handout has been added to the patients discharge packet. Antiplatelet(s) * Aspirin 81mg daily recommended to continue by neuro- hospitalist aware Cholesterol * High intensity statin: atorvastatin 80 mg daily DVT Prophylaxis * SCD knee Therapeutic Anticoagulation * No history of Afib/Aflutter noted Type 2 Diabetes * Patient has T2DM and patient is prescribed semaglutide outpatient
[2022-08-25] MEDS: ONDANSETRON INJ 2 MG/ML 2 ML VIAL IV PRN (16:38)
--- NOTE | 2022-08-25 18:30 | XCELERA ---
[id number]
[2022-08-25] MEDS: ATORVASTATIN 40 MG TAB PO SCH (21:25)
[2022-08-26] MEDS: ACETAMINOPHEN 325 MG TAB PO PRN ×6 (00:31→22:04)
[2022-08-26 07:11] LABS: Basophils # (auto) 0.05 K/uL (0-0.2); Basophils % (auto) 0.5 %; Eosinophils # (auto) 0.05 K/uL (0-0.50); Eosinophils % (auto) 0.5 %; Hemoglobin 11.9 g/dl (14.0-18.0); Immature Granulocytes # (auto) 0.03 K/uL (0.01-0.20); Immature Granulocytes % (auto) 0.3 %; Lymphocytes # (auto) 2.05 K/uL (1.2-3.4); Lymphocytes % (auto) 20.5 %; Mean Corpuscular Hemoglobin 30.4 pg (25.0-34.0); Mean Corpuscular Volume 89.5 fL (80.0-100.0); Mean Platelet Volume 10.6 fL (9.4-12.4); Monocytes # (auto) 0.56 K/uL (0.11-0.59); Monocytes % (auto) 5.6 %; Neutrophils # (auto) 7.26 K/uL (1.40-6.50); Neutrophils % (auto) 72.6 %; Platelet Count 221 K/uL (130-400); RDW Coefficient of Variation 12.5 % (11.5-14.5); RDW Standard Deviation 40.9 fL (36.4-46.3); Red Blood Count 3.91 M/uL (4.70-6.10)
[2022-08-26 07:27] LABS: Prothrombin Time 10.9 Seconds (9.0-12.0)
[2022-08-26 07:37] LABS: Albumin Globulin Ratio 1.4 (0.9-2); Albumin Level 3.7 gm/dl (3.4-5.0); BUN Creatinine Ratio 13.5 (10-20); Bilirubin,Total 1.3 mg/dl (0.2-1.0); Calcium 9.2 mg/dl (8.6-10.3); Creatinine Clr Calc Pharmacy 68.9 ml/min; Est GFR (African American) 93.8 ml/min; Est GFR (Non-African American) 80.9 ml/min; Globulin 2.6 gm/dl (2.5-4.0); Magnesium 1.7 mg/dl (1.7-2.4); Potassium 4.1 mmol/L (3.5-5.1); Total Protein 6.3 gm/dl (6.0-8.3)
--- NOTE | 2022-08-26 08:04 | CT Scan Report ---
CT head/brain wo con CLINICAL HISTORY: cerebellar cva Technique: Contiguous axial CT images of the head were acquired from the base of the skull to the timo shade without intravenous contrast administration. Images were viewed in brain, subdural and [facility]. Automated dose lowering techniques and/or adjustment according to patient size were utilized for this exam. Comparison: Comparison is made to CT head 08/25/2022 Findings: Multiple hypodensities are seen in the right posterior fossa. These appear overall minimally enlarged from prior exam. There is increased mass effect upon the fourth ventricle and midline shift without herniation noted. No evidence of intracranial hemorrhage. Imaged portions of the paranasal sinuses and mastoid air cells are clear. The orbits appear normal. There are no acute fractures of the calvaria or scalp swelling. Impression: Evolutionary changes of right cerebellar infarct without evidence of hemorrhagic transformation. ACT 112: Negative or not required by law. Electronically signed by: Bassam Gonzalez M.D. 08/26/2022 8:01 AM
--- NOTE | 2022-08-26 08:20 | Communication Note ---
Date of Service: August 26, 2022 Neurology Update: Mass effect increasing on the 4th ventricle. No evidence of CSF obstruction. Continue close monitoring today with plan for repeat head CT tomorrow AM.
[2022-08-26] MEDS: INSULIN ASPART PER UNIT CHARGE SC SCH ×4 (08:28→20:26)
--- NOTE | 2022-08-26 12:59 | Hospitalist Progress Note ---
Date of Service August 26, 2022 Assessment & Plan (1) Stroke-like symptoms: Plan: 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 Treated with thrombolytic therapy. He has developed some cytotoxic edema as seen on CT scan. He will need to remain hospitalized until this shows evidence of resolution. Appreciate neurology consultation and recommendations. Daily head CT scan for now. (2) HTN (hypertension): Plan: Currently stable. Continue current management (3) Hypokalemia: Plan: Corrected. Serial labs (4) Hypomagnesemia: Plan: Corrected. Serial labs (5) DM II (diabetes mellitus, type II), controlled: Plan: ADA diet. Sliding scale coverage as needed. Metformin held on admission. He is currently on low-dose Lantus therapy (6) Hyperlipidemia: Plan: Stable. Continue atorvastatin Plan Anticipate eventual discharge to home. Hopefully tomorrow, August 27 Admission and Anticipated Discharge Date Admission Date: August 24, 2022 Subjective Alert and oriented. No new problems. Multiple family members are in attendance. Head CT scan today, August 26, show some progression of the cytotoxic edema in the right cerebellum. He will need to remain hospitalized and will repeat head CT scan again tomorrow, August 27. Review of Systems Review of Systems: Constitutional-no fever or chills ENT-no blurred vision, no double vision, no epistaxis, no sore throat Respiratory-no cough, no wheezing, no shortness of breath Cardiac-no palpitations, no chest pain, no syncope GI-no nausea, vomiting, diarrhea, melena, hematochezia -no urinary retention, no urinary incontinence, no dysuria, no hematuria Musculoskeletal-no joint pain, no muscle tenderness Skin-no bruising, no rashes, no pruritus Neuro-no isolated weakness, no paresthesia, no weakness Psych-no depression, no anxiety Physical Exam Physical Exam: General-alert and oriented x3, no fevers, no chills HEENT-head atraumatic and normocephalic, pupils equal and reactive to light, extraocular muscles intact Neck-no lymphadenopathy or thyromegaly, trachea midline Chest-clear to auscultation percussion. No rales wheezing or rhonchi Cardiac-regular rate and rhythm, normal S1 and S2 Abdomen-normal bowel sounds, nontender, no hepatosplenomegaly Extremities-no cyanosis, clubbing, or edema Neuro-cranial nerves II through XII intact, motor and sensory function within normal limits, strength symmetrical 5/5, no focal deficits. Normal [id number] bilaterally. No evidence of dysdiadochokinesis Psych-normal affect, normal mood Results & Data Results & Data Vital Signs (Past 12 Hours) Vital Signs Temp Pulse Pulse Resp BP Pulse Ox O2 Del Method 08/26/22 11:58 36.9 C 58 L 18 129/74 94 Room Air 08/26/22 07:56 37.0 C 56 L 17 131/71 95 Room Air 08/26/22 07:41 60 08/26/22 03:00 37 C 56 L 18 109/60 94 Room Air Laboratory Results 08/26/22 06:04 08/26/22 06:04 PG Care Time/CCT Total # of Minutes Spent Total Time Spent with Patient: Total time spent is greater than 50% in coordination of care (as documented) at patient's floor/unit and/or counseling patient: Coding Level of Care Code 97163 SUB INP/OBS CARE 2/35MIN Diagnoses Stroke-like symptoms R29.90 HTN (hypertension) I10 Hypokalemia E87.6 Hypomagnesemia E83.42 DM II (diabetes mellitus, type II), controlled E11.9 Hyperlipidemia E78.5
[2022-08-26] MEDS: ATORVASTATIN 40 MG TAB PO SCH (20:41)
[2022-08-27] MEDS: ACETAMINOPHEN 325 MG TAB PO PRN ×5 (02:16→20:15)
[2022-08-27 07:45] LABS: Basophils # (auto) 0.04 K/uL (0-0.2); Basophils % (auto) 0.4 %; Eosinophils # (auto) 0.09 K/uL (0-0.50); Hematocrit (blood only) 36.8 % (42.0-52.0); Hemoglobin 12.6 g/dl (14.0-18.0); Immature Granulocytes # (auto) 0.02 K/uL (0.01-0.20); Immature Granulocytes % (auto) 0.2 %; Lymphocytes # (auto) 1.71 K/uL (1.2-3.4); Mean Corpuscular Hemoglobin 29.5 pg (25.0-34.0); Mean Corpuscular Hgb Conc 34.2 g/dL (32.0-36.0); Mean Corpuscular Volume 86.2 fL (80.0-100.0); Mean Platelet Volume 10.6 fL (9.4-12.4); Monocytes # (auto) 0.61 K/uL (0.11-0.59); Monocytes % (auto) 6.8 %; Neutrophils # (auto) 6.52 K/uL (1.40-6.50); Neutrophils % (auto) 72.6 %; Platelet Count 235 K/uL (130-400); RDW Coefficient of Variation 12.2 % (11.5-14.5); RDW Standard Deviation 38.6 fL (36.4-46.3); Red Blood Count 4.27 M/uL (4.70-6.10); White Blood Count 8.99 K/ul (4.8-10.8)
[2022-08-27 08:06] LABS: Prothrombin Time 11.2 Seconds (9.0-12.0)
[2022-08-27 08:15] LABS: Albumin Globulin Ratio 1.5 (0.9-2); Albumin Level 3.8 gm/dl (3.4-5.0); BUN Creatinine Ratio 13.1 (10-20); Bilirubin,Total 1.3 mg/dl (0.2-1.0); Calcium 9.5 mg/dl (8.6-10.3); Creatinine Clr Calc Pharmacy 66.8 ml/min; Est GFR (African American) 90.3 ml/min; Est GFR (Non-African American) 77.9 ml/min; Globulin 2.6 gm/dl (2.5-4.0); Magnesium 1.7 mg/dl (1.7-2.4); Potassium 4.1 mmol/L (3.5-5.1); Total Protein 6.4 gm/dl (6.0-8.3)
[2022-08-27] MEDS: INSULIN ASPART PER UNIT CHARGE SC SCH ×5 (08:22→20:17)
[2022-08-27] MEDS: ONDANSETRON INJ 2 MG/ML 2 ML VIAL IV PRN (08:24)
--- NOTE | 2022-08-27 08:46 | CT Scan Report ---
CT SCAN OF THE BRAIN WITHOUT IV CONTRAST CLINICAL HISTORY: Follow-up cerebellar stroke. COMPARISON STUDY: Prior CT scans of the brain, most recently dated 08/26/2022. TECHNIQUE: Unenhanced axial CT scan of the brain is performed from the vertex to the skull base. A do se lowering technique was utilized adhering to the principles of ALARA. CT DOSE: 625.80 mGy.cm FINDINGS: Brain parenchyma: There are large evolving infarcts identified in the right cerebellar hemisphere. Th kat are similar in appearance to yesterday, with localized edema and mass effect. This mildly effaces the fourth ventricle and the right quadrant plate cistern. No hemorrhagic conversion is seen. There is age-related involutional change noting mild subcortical and periventricular microangiopathic disea se. There is no hemorrhage or midline shift. No extra-axial fluid collection is seen. Ventricles, sulci, cisterns: Prominent secondary to involutional change. Intracranial vasculature: There is atherosclerotic calcification of the cavernous carotid and vertebr al arteries. Calvarium: Unremarkable. Sinuses and mastoids: The visualized paranasal sinuses are clear. The mastoid air cells are well pneu matized. Orbits: The bony orbits are grossly intact. IMPRESSION: 1. Large evolving infarcts in the right cerebellar hemisphere are similar to yesterday. There is no e vidence of hemorrhagic conversion. 2. There is localized edema and mass effect as above. No hydrocephalus is seen ACT 112: Negative or not required by law. Electronically signed by: Roger Fontaine M.D. 08/27/2022 8:44 AM
--- NOTE | 2022-08-27 13:50 | Neurology Progress Note ---
Date of Service August 27, 2022 Assessment & Plan (1) Cerebellar stroke: Plan: A 67 year old male with large right cerebellar stroke on 08/24 with residual ataxia, headache, and right upper extremity dysmetria. NIHSS 1. He is on ASA 81 mg daily and high intensity statin for secondary stroke prevention. Repeat CT head reviewed from this morning shows hypodensity in right cerebellar hemisphere with brain compression / edema not significantly changed from yesterday. Edema post stroke typically peak around day. He is awake and alert on examine this afternoon. Would recommend one more repeat CT head tomorrow morning as this would be day 4-post stroke. If no change in size of infarct can discontinue daily CT images. Continue Q4hr neuro checks. I will follow up CT head imaging tomorrow morning. Otherwise will sign off for now. Outpatient Neuro follow up in 8 weeks at [facility]. Admission and Anticipated Discharge Date Admission Date: August 24, 2022 Subjective Patient was seen and examined on televideo. He is awake and alert. He had episode of nausea and disphoresis this morning after CT head and symptoms improved with zofran. Poor apetitie. Some intermittent dizziness. Denies history of stroke. Has been having some headache, taking tylenol. Physical Exam Physical Exam: Patient seen and examined on televideo. awak and alert. Speech is soft. Following commands. Mild dysmetria with finger to nose testing on right. Face symmetric. Results & Data Vital Signs (Past 12 Hours) Vital Signs Temp Pulse Pulse Resp BP Pulse Ox O2 Del Method 08/27/22 12:10 37.3 C 77 18 139/73 94 Room Air 08/27/22 08:20 36.7 C 82 20 176/79 H 94 Room Air 08/27/22 07:34 37.1 C 54 L 18 135/75 94 Room Air 08/27/22 08:00 55 L 08/27/22 03:16 37.2 C 55 L 18 125/76 94 Room Air Diagnostic Findings CT head non contrast reviewed from this morning. Brain parenchyma: There are large evolving infarcts identified in the right cerebellar hemisphere. These are similar in appearance to yesterday, with localized edema and mass effect. This mildly effaces the fourth ventricle and the right quadrant plate cistern. No hemorrhagic conversion is seen. There is age-related involutional change noting mild subcortical and periventricular microangiopathic disease. There is no hemorrhage or midline shift. No extra- axial fluid collection is seen. Ventricles, sulci, cisterns: Prominent secondary to involutional change. Intracranial vasculature: There is atherosclerotic calcification of the cavernous carotid and vertebral arteries. Calvarium: Unremarkable. Sinuses and mastoids: The visualized paranasal sinuses are clear. The mastoid air cells are well pneumatized. Orbits: The bony orbits are grossly intact. IMPRESSION: 1. Large evolving infarcts in the right cerebellar hemisphere are similar to yesterday. There is no evidence of hemorrhagic conversion. 2. There is localized edema and mass effect as above. No hydrocephalus is seen TTE report renewed: EF 60-65%. LVH. PFO present. MRI OF THE BRAIN WITHOUT CONTRAST CLINICAL HISTORY: stroke like symptoms, S/P TNK COMPARISON STUDY: Head CT and CTA of the head August 24, 2022. TECHNIQUE: Utilizing a 1.5 Saranya magnet and dedicated coil, multiplanar, multiecho imaging of the brain was performed without IV contrast. FINDINGS: Note is made of a 4.8 x 2.8 cm focus of restricted diffusion within the inferior right cerebellar hemisphere and a 4.6 x 2.9 cm focus of restricted diffusion within the superior right cerebellar hemisphere. There is no evidence for hemorrhagic conversion. There is minimal mass effect with slight effacement of the fourth ventricle. Ventricular system is otherwise unremarkable. Basal cisterns are patent. Prominence of the extra-axial spaces is noted. This is due to mild atrophy. No intracranial masses identified on this unenhanced examination. Scattered white matter T2 hyperintense foci suggest small vessel disease. Calvarial signal is within normal limits. IMPRESSION: Moderate sized acute infarcts within the superior and inferior aspects of the right cerebellar hemisphere, as described above. No evidence for hemorrhagic conversion. Mild mass effect with slight effacement of the fourth ventricle. Short-term follow-up head CT in 12 to 24 hours is recommended to reassess mass effect. These findings will be called/faxed to the ordering provider at time of dictation.
--- NOTE | 2022-08-27 14:23 | Hospitalist Progress Note ---
Date of Service August 27, 2022 Assessment & Plan (1) Stroke-like symptoms: Plan: 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 Treated with thrombolytic therapy. He has developed some cytotoxic edema as seen on CT scan. Head CT scan done today, August 27, is stable. We will repeat head CT scan again tomorrow and no further head CT scans if the edema remains stable. Case discussed by phone with [facility] neurology. (2) HTN (hypertension): Plan: Currently stable. Continue current management (3) Hypokalemia: Plan: Corrected. Serial labs (4) Hypomagnesemia: Plan: Corrected. Serial labs (5) DM II (diabetes mellitus, type II), controlled: Plan: ADA diet. Sliding scale coverage as needed. Metformin held on admission. He is currently on low-dose Lantus therapy (6) Hyperlipidemia: Plan: Stable. Continue atorvastatin Plan Anticipate eventual discharge to [facility] rehab when arrangements are finalized Admission and Anticipated Discharge Date Admission Date: August 24, 2022 Subjective Alert and oriented. Son is at the bedside. He had some nausea this morning which has resolved. Head CT scan done today, August 27, 6 shows no change in the amount of edema around the cerebellar CVA. Case discussed with neurology by phone. We will repeat head CT scan again tomorrow, August 28. No further head CT scans after that if the edema is stable. Review of Systems Review of Systems: Constitutional-no fever or chills ENT-no blurred vision, no double vision, no epistaxis, no sore throat Respiratory-no cough, no wheezing, no shortness of breath Cardiac-no palpitations, no chest pain, no syncope GI-nauseated this morning. No vomiting, diarrhea, melena, hematochezia -no urinary retention, no urinary incontinence, no dysuria, no hematuria Musculoskeletal-no joint pain, no muscle tenderness Skin-no bruising, no rashes, no pruritus Neuro-no isolated weakness, no paresthesia, no weakness Psych-no depression, no anxiety Physical Exam Physical Exam: General-alert and oriented x3, no fevers, no chills HEENT-head atraumatic and normocephalic, pupils equal and reactive to light, extraocular muscles intact Neck-no lymphadenopathy or thyromegaly, trachea midline Chest-clear to auscultation percussion. No rales wheezing or rhonchi Cardiac-regular rate and rhythm, normal S1 and S2 Abdomen-normal bowel sounds, nontender, no hepatosplenomegaly Extremities-no cyanosis, clubbing, or edema Neuro-cranial nerves II through XII intact, motor and sensory function within normal limits, strength symmetrical 5/5, no focal deficits. Normal finger -to-nose bilaterally. No evidence of dysdiadochokinesis Psych-normal affect, normal mood Results & Data Results & Data Vital Signs (Past 12 Hours) Vital Signs Temp Pulse Pulse Resp BP Pulse Ox O2 Del Method 08/27/22 12:10 37.3 C 77 18 139/73 94 Room Air 08/27/22 08:20 36.7 C 82 20 176/79 H 94 Room Air 08/27/22 07:34 37.1 C 54 L 18 135/75 94 Room Air 08/27/22 08:00 55 L 08/27/22 03:16 37.2 C 55 L 18 125/76 94 Room Air Laboratory Results 08/27/22 06:45 08/27/22 06:45 PG Care Time/CCT Total # of Minutes Spent Total Time Spent with Patient: Total time spent is greater than 50% in coordination of care (as documented) at patient's floor/unit and/or counseling patient: Coding Level of Care Code 35211 SUB INP/OBS CARE 3/50MIN Diagnoses Stroke-like symptoms R29.90 HTN (hypertension) I10 Hypokalemia E87.6 Hypomagnesemia E83.42 DM II (diabetes mellitus, type II), controlled E11.9 Hyperlipidemia E78.5
[2022-08-27] MEDS: LOPERAMIDE HCL 2 MG CAP PO PRN (20:15)
[2022-08-27] MEDS: ATORVASTATIN 40 MG TAB PO SCH (20:15)
[2022-08-28] MEDS: ACETAMINOPHEN 325 MG TAB PO PRN ×4 (01:06→16:34)
--- NOTE | 2022-08-28 07:51 | CT Scan Report ---
CT SCAN OF THE BRAIN WITHOUT IV CONTRAST CLINICAL HISTORY: Follow-up cerebellar stroke. COMPARISON STUDY: Prior CT scans of the brain, most recently dated 08/27/2022. TECHNIQUE: Unenhanced axial CT scan of the brain is performed from the vertex to the skull base. A do se lowering technique was utilized adhering to the principles of ALARA. CT DOSE: 547.75 mGy.cm FINDINGS: Brain parenchyma: Again seen are large evolving infarcts identified in the right cerebellar hemispher e. These are similar in appearance to yesterday, with localized edema and mass effect. This mildly ef faces the fourth ventricle and the right quadrigeminal plate cistern. No hemorrhagic conversion is se en. There is age-related involutional change noting mild subcortical and periventricular microangiopa thic disease. There is no hemorrhage or midline shift. No extra-axial fluid collection is seen. Ventricles, sulci, cisterns: Prominent secondary to involutional change. Intracranial vasculature: There is atherosclerotic calcification of the cavernous carotid and vertebr al arteries. Calvarium: Unremarkable. Sinuses and mastoids: The visualized paranasal sinuses are clear. The mastoid air cells are well pneu matized. Orbits: The bony orbits are grossly intact. IMPRESSION: 1. No significant change in the appearance of large evolving infarcts in the right cerebellar hemisph ere as compared to yesterday. There is no evidence of hemorrhagic conversion. 2. There is localized edema and mass effect as above. No hydrocephalus is seen ACT 112: Negative or not required by law. Electronically signed by: Roger Fontaine M.D. 08/28/2022 7:50 AM
[2022-08-28] MEDS: INSULIN ASPART PER UNIT CHARGE SC SCH ×4 (08:17→21:02)
--- NOTE | 2022-08-28 09:57 | Pharmacy Report ---
Pharmacy Glycemic Sign Off Nt - Date of Service August 28, 2022 - Assessment & Plan ASSESSMENT: * Pharmacy was consulted by Dr Monteiro on 08/24/22 for glycemic control and to write orders per [facility] inpatient glycemic control protocol. * Major changes made by pharmacy to antidiabetic regimen include: * initiation of insulin * Patient has been receiving/requiring 7-8 units of insulin per day for adequate glycemic control * BSGs ranging 92-141 mg/dl * Regimen has only required minor adjustments over the past 48hrs to achieve this level of control * Do not anticipate further changes in patient status that would quickly deteriorate glycemic control (i.e. patient to be NPO for upcoming procedure, steroids tapering, starting tube feedings, etc). PLAN FOR INPATIENT GLYCEMIC CONTROL: No changes needed to current regimen. * Hold basal insulin * Continue NovoLog per scale ACHS/Q6hrs while NPO * Goal range = 110-140 mg/dl * CF = 35 mg/dl/unit * CR = 1 unit for ever 15 g CHO consumed * Pharmacy is signing off of glycemic consult and will no longer be making adjustments to inpatient regimen. Please feel free to re-consult if needed. Thank you.
[2022-08-28] MEDS: LISINOPRIL/HCTZ 20/25MG 1 TAB PO SCH (11:17)
--- NOTE | 2022-08-28 14:26 | Hospitalist Progress Note ---
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 Treated with thrombolytic therapy. He has developed some cytotoxic edema as seen on CT scan. Head CT scan done today, August 28, remains stable. No further head CT scans necessary at this time. (2) HTN (hypertension): Plan: Currently stable. Lisinopril/HCT restarted today, August 28 (3) Hypokalemia: Plan: Corrected. Serial labs (4) Hypomagnesemia: Plan: Corrected. Serial labs (5) DM II (diabetes mellitus, type II), controlled: Plan: ADA diet. Sliding scale coverage as needed. Metformin held on admission. Will be restarted at discharge. He is currently on low-dose Lantus therapy which will be stopped at discharge (6) Hyperlipidemia: Plan: Stable. Continue atorvastatin Plan Anticipate eventual discharge to [facility] rehab when arrangements are finalized. Hopefully tomorrow, August 29 Admission and Anticipated Discharge Date Admission Date: August 24, 2022 Subjective Alert and oriented. Family is at the bedside. Head CT scan done today, August 28, is stable. No further CT scans are scheduled. Lisinopril/HCT restarted today, August 28. Anticipate discharge to [facility] tomorrow, August 29 Review of Systems Review of Systems: Constitutional-no fever or chills ENT-no blurred vision, no double vision, no epistaxis, no sore throat Respiratory-no cough, no wheezing, no shortness of breath Cardiac-no palpitations, no chest pain, no syncope GI-nauseated this morning. No vomiting, diarrhea, melena, hematochezia -no urinary retention, no urinary incontinence, no dysuria, no hematuria Musculoskeletal-no joint pain, no muscle tenderness Skin-no bruising, no rashes, no pruritus Neuro-no isolated weakness, no paresthesia, no weakness Psych-no depression, no anxiety Physical Exam Physical Exam: General-alert and oriented x3, no fevers, no chills HEENT-head atraumatic and normocephalic, pupils equal and reactive to light, extraocular muscles intact Neck-no lymphadenopathy or thyromegaly, trachea midline Chest-clear to auscultation percussion. No rales wheezing or rhonchi Cardiac-regular rate and rhythm, normal S1 and S2 Abdomen-normal bowel sounds, nontender, no hepatosplenomegaly Extremities-no cyanosis, clubbing, or edema Neuro-cranial nerves II through XII intact, motor and sensory function within normal limits, strength symmetrical 5/5, no focal deficits. Normal [id number] bilaterally. No evidence of dysdiadochokinesis Psych-normal affect, normal mood Results & Data Results & Data Vital Signs (Past 12 Hours) Vital Signs Temp Pulse Pulse Resp BP Pulse Ox O2 Del Method 08/28/22 11:55 36.7 C 69 18 123/76 93 Room Air 08/28/22 09:59 59 L 08/28/22 07:56 37.0 C 54 L 18 150/78 H 94 Room Air 08/28/22 03:55 36.9 C 66 18 116/72 95 Room Air Laboratory Results 08/27/22 06:45 08/27/22 06:45 PG Care Time/CCT Total # of Minutes Spent Total Time Spent with Patient: Total time spent is greater than 50% in coordination of care (as documented) at patient's floor/unit and/or counseling patient: Coding Level of Care Code 91241 SUB INP/OBS CARE 3/50MIN Diagnoses Stroke-like symptoms R29.90 HTN (hypertension) I10 Hypokalemia E87.6 Hypomagnesemia E83.42 DM II (diabetes mellitus, type II), controlled E11.9 Hyperlipidemia E78.5
[2022-08-28] MEDS: ATORVASTATIN 40 MG TAB PO SCH (19:56)
[2022-08-29] MEDS: ACETAMINOPHEN 325 MG TAB PO PRN ×3 (01:14→13:24)
[2022-08-29] MEDS: LOPERAMIDE HCL 2 MG CAP PO PRN (01:14)
[2022-08-29] MEDS: LISINOPRIL/HCTZ 20/25MG 1 TAB PO SCH (08:28)
[2022-08-29] MEDS: INSULIN ASPART PER UNIT CHARGE SC SCH ×2 (08:29→12:14)
--- NOTE | 2022-08-29 12:55 | Discharge Summary ---
Date of Service August 29, 2022 Admission HPI Per Admitting Provider Edu is a 67 year old male with a PMH significant for DM II, HTN, Hyperlipidemia who presented to the [facility] ED on 08/24/22 with complaints of headache, blurry vision, right upper extremity weakness, nausea/vomiting. In the vitals were stable, a stroke alert was called after his initial evaluation. Labs were significant for a potassium of 3.4, mag of 1.5, total bili of 1.4, and covid [address] head wo con was read as No acute intracranial hemorrhage, no evidence of acute territorial infarction or other acute intracranial disease process.. CTA of the head was read as 1. Unremarkable CTA of the head. 2. 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 3. Involutional changes with suggestion of mild chronic microvascular ischemic disease.. CTA of the neck was read as No stenosis or dissection within the bilateral common carotid, cervical internal carotid or vertebral arteries. Mild atherosclerotic plaque.. Prior to admission the patient was given 5 mg IV reglan, 8 mg IV Zofran, 1gm IV acetaminophen, and 23 mg TNK after discussions with [facility] [employer]. At the time of the exam the patient was sitting in bed in no acute distress with his children bedside. He states that he was in his normal state of health when he woke this am. Around 0945 he developed a sudden onset of dizziness/room spinning, right-sided headache, BL blurry vision, and right UE weakness. He denies having symptoms like this in the past or a previous hx of stroke. He denies tobacco, alcohol, and recreational drug use. He took all of his am medications prior to ED arrival. Currently his dizziness and blurry vision have resolved. He feels as though his RUE weakness is nearly resolved but he is still having the right-sided headache and feels generally weak. He denies recent fever, chills, chest pain, SOB, cough, abd pain, hematemesis, dysuria, hematuria, melena, LE swelling, and recent trauma. He denies any new paresthesias or weakness since receiving TNK at 12:33. We discussed code status, he wishes to be a DNR/DNI and would want both his children to make medical decisions for him if he could not make them himself. Please refer to Dr. Monteiro's attestation for any changes to the treatment plan Principal Diagnosis Ischemic right cerebellar embolic CVAs, hypokalemia, hypomagnesemia Discharge Exam General-alert and oriented x3, no fevers, no chills HEENT-head atraumatic and normocephalic, pupils equal and reactive to light, extraocular muscles intact Neck-no lymphadenopathy or thyromegaly, trachea midline Chest-clear to auscultation percussion. No rales wheezing or rhonchi Cardiac-regular rate and rhythm, normal S1 and S2 Abdomen-normal bowel sounds, nontender, no hepatosplenomegaly Extremities-no cyanosis, clubbing, or edema Neuro-cranial nerves II through XII intact, motor and sensory function within normal limits, strength symmetrical 5/5, no focal deficits. Normal [id number] bilaterally. No evidence of dysdiadochokinesis Psych-normal affect, normal mood Discharge Data Allergies Allergy/AdvReac Type Severity Reaction Status Date / Time Unable to Assess Allergy Unverified 08/24/22 12:23 Consultations 08/24/22 13:18 Consult Neurology Routine 08/24/22 13:43 ED Decision to Admit Stat 08/24/22 15:18 Consult Manager Resource Routine Ordered Studies 08/24/22 11:06 CT angio head w con Stat CT angio neck with con Stat CT head/brain wo con Stat 08/24/22 13:16 MRI Brain [MR brain wo con] Urgent 08/25/22 05:00 CT head/brain wo con Routine 08/26/22 07:00 CT head/brain wo con Routine 08/27/22 07:[address] [CT head/brain wo con] DAILY 08/28/22 07:[address] [CT head/brain wo con] DAILY Hospital Course (1) Stroke-like symptoms: 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 Treated with thrombolytic therapy. He has developed some cytotoxic edema as seen on CT scan. Head CT scan done on August 28 remained stable. No further head CT scans n ecessary at this time. (2) HTN (hypertension): Currently stable. Lisinopril/HCT restarted on August 28 (3) Hypokalemia: Corrected. Serial labs (4) Hypomagnesemia: Corrected. Serial labs (5) DM II (diabetes mellitus, type II), controlled: ADA diet. Sliding scale coverage as needed. Metformin held on admission. Will be restarted at discharge. He is currently on low-dose Lantus therapy which will be stopped at discharge (6) Hyperlipidemia: Stable. Continue atorvastatin Plan If IPR was denied, he will go home with home health services today, August 29 Total Time Total Time Spent Total Time Spent (In Minutes): 40 minutes Discharge Plan Discharge Items Patient Disposition: Home - Home Health Services Reason For Visit: STROKE-LIKE SYMPTOMS Discharge Diagnosis: Ischemic embolic right cerebellar CVAs Activity: Resume your previous activity Non-emergency contact: Primary Care Provider Call non-emergency contact if: you have any medication questions and your symptoms worsen Follow-up/Referrals: Fernando Jaime [Primary Care Provider] - Diet: Carb Consistent or DM2 and Heart Healthy Addtl Attending Provider Instructions: Continue with outpatient physical therapy Pending Studies at Discharge: No Stand-Alone Forms: My [facility], Smoking Cessation, Medications to Prevent Stroke Medications and DC Order Prescriptions: New aspirin 81 mg tablet,delayed release (DR/EC) 81 mg PO DAILY Qty: 1 0RF Continued atorvastatin 80 mg tablet 80 mg PO HS metformin 1,000 mg tablet 1,000 mg PO BID lisinopril-hydrochlorothiazide 20-25 mg tablet 1 tab PO DAILY Ozempic 0.25 mg or 0.5 mg(2 mg/1.5 mL) pen injector 0.5 mg SUBCUT WK Discharge Orders: Discharge Order (Routine); Ordered 08/29/22 Ordered By: Dax Lima/Other Patient Handouts: Managing Type 2 Diabetes Admission Data Admit Date/Time: 08/24/22 13:01 Attending Provider: Dax Barton Admit Provider: Fredy Monteiro Primary Care Provider: Fernando Jaime Other Providers: Fredy Monteiro ; Shant Hamilton ; [facility] Coding Level of Care Code 59540 INP/OBS DISCH >30 MIN Diagnoses Stroke-like symptoms R29.90 HTN (hypertension) I10 Hypokalemia E87.6 Hypomagnesemia E83.42 DM II (diabetes mellitus, type II), controlled E11.9 Hyperlipidemia E78.5
== END 2022-08-29 14:14 | disposition home health service (06) | DRG 61 ==
LOC: ED 10:24 → 1E 13:01 → SUATTDRO 13:01 → 1E 13:56 → 2N 08-25 17:30

== ENCOUNTER 2024-05-13 23:31 | Observation (INO) ==
--- NOTE | 2024-05-13 23:48 | Emergency Department Note ---
Impression & Plan Dizziness, Brain TIA, Pneumonia ED Provider Note HISTORY OF PRESENT ILLNESS: Patient is a 68-year-old male presenting with dizziness and vomiting. Patient reports that around 430 to 5 PM he started "not feeling right." He states that his vision got blurry and he "felt off." He states he felt nauseous and vomited into his kitchen garbage can. He states that he was trying to walk that out to the garage when he suddenly felt very unsteady on his feet and had to hold onto the wall. He states that this felt similar to his previous stroke. He is currently on a baby aspirin. He states that the symptoms persisted for a few hours and he continued to have blurry vision and feeling unsteady, prompting him to call his son who then called 911. Patient denies any recent falls or head injuries. Denies any numbness or tingling or weakness in his extremities. He was given 4 mg of Zofran and route with EMS. On arrival to the ER, he reports his nausea and symptoms are improved. He denies any headache or current changes in vision. Denies any chest pain or shortness of breath. Denies any history of cardiac stents. ROS: as above PHYSICAL EXAM: Constitutional: Patient appears in no acute distress. HENT: Head: Normocephalic and atraumatic. Eyes: EOMI, PERRL Mouth/Throat: Mucous membranes moist. Neck: Trachea midline. Neck supple. Cardiovascular: RRR, No murmurs, rubs or gallops. Intact distal pulses. Pulmonary/Chest: No respiratory distress. Breath sounds clear and equal bilaterally. No wheezes or rales. Abdominal: Abdomen soft, no tenderness, rebound or guarding. Musculoskeletal: No edema, tenderness or deformity noted. Skin: Warm and dry. No rash, erythema, pallor or cyanosis Psychiatric: Appropriate mood and affect for situation. Neurological: Alert and keenly responsive. Facies symmetric. Able to raise eyebrows, close eyes, smile, puff mouth, stick out tongue, move tongue left and right and raise palate symmetrically. Able to shrug shoulders. PERRLA. SILT to forehead below eye and at jawline. Can hear soft noise bilaterally. Good finger to nose. Strength 5/5 in bilateral upper and lower extremities. SILT throughout bilateral upper and lower extremities. MDM: - Vitals signs showed hypertension - History obtained via patient. History as above. - Chronic conditions affecting care: Cerebellar stroke; HTN; HLD; DM-2 - Differential diagnoses include, but are not limited to: CVA; intracranial hemorrhage; TIA; ACS; electrolyte abnormality; peripheral vertigo - Order placed for continuous cardiac monitoring. At this time, monitor showed rate of 81 bpm with normal sinus rhythm, per my interpretation. - External medical records reviewed. Discharge summary dated 08/29/2022 was reviewed. Patient was admitted at that time for strokelike symptoms and found to have multiple embolic ischemic right cerebellar CVA. - EKG image interpreted by myself showed normal sinus rhythm. Rate 78 bpm. QT 390. No acute ischemic changes. - Laboratory workup interpreted by myself showed leukocytosis (WBC 14.30); elevated BUN (31); hyperglycemia (glucose 252); normal troponin - UA negative for infection. - Patient given 4 mg IV zofran in ER for futher nausea management. - CXR image reviewed by myself showed a right lower lobe abnormality concerning for potential pneumonia. Radiology reports this is an infiltrate - Viral respiratory panel negative - CT head wo contrast negative for acute pathology. Noted to have a chronic infarction in the right superior cerebellar region. - CTA head negative for acute pathology. - CTA neck noted to have multiple bilateral carotid atherosclerotic plaques which are unchanged from previous reviewed, per radiology. - Patient given 2g IV rocephin + 500 mg PO azithromycin for pneumonia coverage. - Given patient's symptoms and history of CVA, concern for potential TIA. Will admit to hospital service for further evaluation and management. - Discussion was had with piano case and bench assembler about patient's case and need for admission - Hospitalist, Dr. Weldon, consulted for admission - Patient admitted to [facility] hospitalist service for further evaluation and management. ASSESSMENT AND PLAN: Diagnosis: Dizziness; TIA; pneumonia Plan: Admit Past Med/Surg History Problem List (Updated 05/14/24 @ 04:03 by Aline Billy MD) Pneumonia (Acute) Brain TIA (Acute) Dizziness (Acute) Papilloma of buccal mucosa Residual cyst Gum abscess Hyperlipidemia HTN (hypertension) Ataxia DM II (diabetes mellitus, type II), controlled Cognitive complaints Memory loss Cerebellar stroke Hypomagnesemia Hypokalemia Surgical History (Updated 03/29/24 @ 08:42 by Mindi Villavicencio RN) Hx of biopsy (03/26/24) FINAL DIAGNOSIS In office procedure Dr. Anderson Oral cavity, excision: - Inflamed squamous mucosa and fibrous tissue. - Clinical correlation is recommended. - See comment Social History (Updated 02/01/24 @ 14:13 by Abiola Alston RN) Smoking Status: Former smoker Second Hand Exposure: No; Do You Dip or Chew Tobacco: No; Hx Alcohol Use: No Hx Substance Use: No Preferred Language: [place] Communication Ability: Effective Financial Services Education Consultant Required: No Beliefs That Will Affect Care: Spiritual marital status: / Current Living Situation: Alone current occupational status: retired How many Children do You have: 2 Feels Safe at Home: Yes during the past year weight has: remained stable Assistive Devices: Glasses Allergies Allergies Allergy/AdvReac Type Severity Reaction Status Date / Time No Known Drug Allergies Allergy Unknown Unknown Verified 05/14/24 01:46 Home Meds Home Medications Medication Instructions Recorded Confirmed atorvastatin 80 mg tablet 80 mg PO Q OTHER DAY 08/24/22 05/14/24 metformin 1,000 mg tablet 1,000 mg PO BID 08/24/22 05/14/24 aspirin 81 mg tablet,delayed 81 mg PO QAM 05/14/24 05/14/24 release lisinopril 20 0.5 tab PO HS 05/14/24 05/14/24 mg-hydrochlorothiazide 25 mg tablet loperamide 2 mg capsule (Imodium 2 mg PO QAM 05/14/24 05/14/24 A-D) semaglutide 0.25 mg or 0.5 mg (2 0.5 mg subcut WK 05/14/24 05/14/24 mg/3 mL) subcutaneous pen injector (Ozempic) Results & Data (ED) Vital Signs Vital Signs - 24 hr 05/13/24 23:27 05/13/24 23:27 05/13/24 23:45 Temperature 36.6 C Temperature Source Oral Pulse Rate - Lying Pulse Rate - Sitting Pulse Rate - Standing Pulse Rate 82 Pulse Rate from SpO2 Sensor Respiratory Rate 16 Respiratory Effort / Characteristics Non-Labored Non-Labored Respiratory Depth Normal Normal Blood Pressure - Lying Blood Pressure - Sitting Blood Pressure- Standing Blood Pressure 152/87 H Blood Pressure Mean 108 Pulse Oximetry 92 Oxygen Delivery Method Room Air Room Air Sepsis Recent Fever Within 48 Hours No Sepsis New/Unexplained Change in Mental Status No Sepsis Action Taken by Nursing No Action Required 05/13/24 23:45 05/13/24 23:56 05/13/24 23:57 Temperature Temperature Source Pulse Rate - Lying Pulse Rate - Sitting Pulse Rate - Standing Pulse Rate 85 82 Pulse Rate from SpO2 Sensor 82 Respiratory Rate 18 Respiratory Effort / Characteristics Respiratory Depth Blood Pressure - Lying Blood Pressure - Sitting Blood Pressure- Standing Blood Pressure Blood Pressure Mean Pulse Oximetry 92 Oxygen Delivery Method Room Air Sepsis Recent Fever Within 48 Hours Sepsis New/Unexplained Change in Mental Status Sepsis Action Taken by Nursing 05/14/24 00:00 05/14/24 00:12 05/14/24 00:24 Temperature Temperature Source Pulse Rate - Lying Pulse Rate - Sitting Pulse Rate - Standing Pulse Rate 78 76 75 Pulse Rate from SpO2 Sensor 79 76 75 Respiratory Rate 19 18 17 Respiratory Effort / Characteristics Respiratory Depth Blood Pressure - Lying Blood Pressure - Sitting Blood Pressure- Standing Blood Pressure Blood Pressure Mean Pulse Oximetry 92 93 93 Oxygen Delivery Method Sepsis Recent Fever Within 48 Hours Sepsis New/Unexplained Change in Mental Status Sepsis Action Taken by Nursing 05/14/24 00:51 05/14/24 01:00 05/14/24 01:18 Temperature Temperature Source Pulse Rate - Lying Pulse Rate - Sitting Pulse Rate - Standing Pulse Rate 83 78 77 Pulse Rate from SpO2 Sensor 83 78 77 Respiratory Rate 16 16 17 Respiratory Effort / Characteristics Respiratory Depth Blood Pressure - Lying Blood Pressure - Sitting Blood Pressure- Standing Blood Pressure Blood Pressure Mean Pulse Oximetry 93 93 93 Oxygen Delivery Method Sepsis Recent Fever Within 48 Hours Sepsis New/Unexplained Change in Mental Status Sepsis Action Taken by Nursing 05/14/24 01:27 05/14/24 01:39 05/14/24 01:39 Temperature Temperature Source Pulse Rate - Lying Pulse Rate - Sitting Pulse Rate - Standing Pulse Rate Pulse Rate from SpO2 Sensor Respiratory Rate Respiratory Effort / Characteristics Non-Labored Respiratory Depth Normal Blood Pressure - Lying Blood Pressure - Sitting Blood Pressure- Standing Blood Pressure 128/77 128/77 Blood Pressure Mean 108 108 Pulse Oximetry Oxygen Delivery Method Sepsis Recent Fever Within 48 Hours Sepsis New/Unexplained Change in Mental Status Sepsis Action Taken by Nursing 05/14/24 01:39 05/14/24 01:39 05/14/24 01:42 Temperature Temperature Source Pulse Rate - Lying Pulse Rate - Sitting Pulse Rate - Standing Pulse Rate 73 77 Pulse Rate from SpO2 Sensor 73 77 Respiratory Rate 16 15 Respiratory Effort / Characteristics Respiratory Depth Blood Pressure - Lying Blood Pressure - Sitting Blood Pressure- Standing Blood Pressure 128/77 Blood Pressure Mean 108 Pulse Oximetry 94 92 Oxygen Delivery Method Sepsis Recent Fever Within 48 Hours Sepsis New/Unexplained Change in Mental Status Sepsis Action Taken by Nursing 05/14/24 01:57 05/14/24 02:00 05/14/24 02:00 Temperature Temperature Source Pulse Rate - Lying Pulse Rate - Sitting Pulse Rate - Standing Pulse Rate 74 Pulse Rate from SpO2 Sensor 73 Respiratory Rate 15 Respiratory Effort / Characteristics Respiratory Depth Blood Pressure - Lying Blood Pressure - Sitting Blood Pressure- Standing Blood Pressure 144/86 H 144/86 H Blood Pressure Mean 111 111 Pulse Oximetry 93 Oxygen Delivery Method Sepsis Recent Fever Within 48 Hours Sepsis New/Unexplained Change in Mental Status Sepsis Action Taken by Nursing 05/14/24 02:21 05/14/24 02:24 05/14/24 02:56 Temperature Temperature Source Pulse Rate - Lying Pulse Rate - Sitting Pulse Rate - Standing Pulse Rate 75 73 Pulse Rate from SpO2 Sensor 75 73 Respiratory Rate 14 13 Respiratory Effort / Characteristics Respiratory Depth Blood Pressure - Lying Blood Pressure - Sitting Blood Pressure- Standing Blood Pressure 112/71 Blood Pressure Mean 81 Pulse Oximetry 92 91 Oxygen Delivery Method Sepsis Recent Fever Within 48 Hours Sepsis New/Unexplained Change in Mental Status Sepsis Action Taken by Nursing 05/14/24 02:56 05/14/24 02:57 05/14/24 02:57 Temperature Temperature Source Pulse Rate - Lying 76 Pulse Rate - Sitting 84 Pulse Rate - Standing 84 Pulse Rate 74 Pulse Rate from SpO2 Sensor 74 Respiratory Rate 18 Respiratory Effort / Characteristics Respiratory Depth Blood Pressure - Lying 127/78 Blood Pressure - Sitting 113/67 Blood Pressure- Standing 112/71 Blood Pressure 112/71 Blood Pressure Mean 81 Pulse Oximetry 93 Oxygen Delivery Method Sepsis Recent Fever Within 48 Hours Sepsis New/Unexplained Change in Mental Status Sepsis Action Taken by Nursing 05/14/24 03:00 05/14/24 03:47 Temperature Temperature Source Pulse Rate - Lying Pulse Rate - Sitting Pulse Rate - Standing Pulse Rate 81 Pulse Rate from SpO2 Sensor Respiratory Rate Respiratory Effort / Characteristics Non-Labored Spontaneous Respiratory Depth Normal Blood Pressure - Lying Blood Pressure - Sitting Blood Pressure- Standing Blood Pressure Blood Pressure Mean Pulse Oximetry Oxygen Delivery Method Sepsis Recent Fever Within 48 Hours Sepsis New/Unexplained Change in Mental Status Sepsis Action Taken by Nursing Laboratory Data 05/13/24 23:45 05/13/24 23:45 Lab Results 05/13/24 05/14/24 05/14/24 Range/Units 23:45 00:55 01:55 WBC 14.30 H (4.8-10.8) K/ul RBC 4.55 L (4.70-6.10) M/uL Hgb 13.7 L (14.0-18.0) g/dl Hct 40.3 L (42.0-52.0) % MCV 88.6 (80.0-100.0) fL MCH 30.1 (25.0-34.0) pg MCHC 34.0 (32.0-36.0) g/dL RDW Std Deviation 41.4 (36.4-46.3) fL RDW Coeff of Pamela 12.8 (11.5-14.5) % Plt Count 251 (130-400) K/uL MPV 10.3 (9.4-12.4) fL Immature Gran % (Auto) 0.5 % Neut % (Auto) 75.3 % Lymph % (Auto) 18.0 % [place] % (Auto) 4.5 % Eos % (Auto) 1.3 % Baso % (Auto) 0.4 % Neut # (Auto) 10.76 H (1.40-6.50) K/uL Lymph # (Auto) 2.57 (1.20-3.40) K/uL [place] # (Auto) 0.65 H (0.11-0.59) K/uL Eos # (Auto) 0.19 (0.00-0.50) K/uL Baso # (Auto) 0.06 (0.00-0.20) K/uL Immature Gran # (Auto) 0.07 (0.01-0.20) K/uL PT 10.2 (9.0-12.0) Seconds INR 0.9 (0.9-1.1) Sodium 135 L (136-145) mmol/L Potassium 4.3 (3.5-5.1) mmol/L Chloride 102 (98-107) mmol/L Carbon Dioxide 22 (21-32) mmol/L Anion Gap 11 (3-11) BUN 31 H (6-23) mg/dl Creatinine 1.39 (0.6-1.4) mg/dl Est Cr Clr Drug Dosing 51.3 ml/min eGFR 54.88 BUN/Creatinine Ratio 22.3 H (10-20) Glucose 252 H (70-99(Fasting)) mg/dl Calcium 9.6 (8.6-10.3) mg/dl Magnesium 1.7 (1.7-2.4) mg/dl Total Bilirubin 0.9 (0.2-1.0) mg/dl AST 19 (13-39) U/L ALT 25 (7-52) U/L Alkaline Phosphatase 52 (34-104) U/L Troponin I High Sens 3.9 (0-20) pg/ml Total Protein 7.0 (6.0-8.3) gm/dl Albumin 4.4 (3.4-5.0) gm/dl Globulin 2.6 (2.5-4.0) gm/dl Albumin/Globulin Ratio 1.7 (0.9-2) Urine Color Yellow Urine Appearance Clear (Clear) Urine pH 5.5 (4.5-7.5) Ur Specific [place] 1.042 H (1.000-1.030) Urine Protein Trace H (Negative) Urine Glucose (UA) 3+ H (Negative) Urine Ketones Negative (Negative) Urine Blood Negative (Negative) Urine Nitrite Negative (Negative) Urine Bilirubin Negative (Negative) Urine Urobilinogen Negative (Negative) Ur Leukocyte Esterase Negative (Negative) Urine WBC (Auto) 0-5 (0-5) /hpf Urine RBC (Auto) 0-2 (0-2) /hpf U Hyaline Cast (Auto) 0-2 (0-2) /lpf U Epithel Cells (Auto) 0-2 (0-2) /hpf Urine Bacteria (Auto) None Seen (None Seen) Adenovirus (PCR) Not Detected (NotDetected) B. pertussis DNA (PCR) Not Detected (NotDetected) B.parapertussis DNA PCR Not Detected (NotDetected) C. pneumoniae DNA (PCR) Not Detected (NotDetected) Coronavirus OC43 (PCR) Not Detected (NotDetected) Coronavirus HKU1 (PCR) Not Detected (NotDetected) Coronavirus 229E (PCR) Not Detected (NotDetected) SARS-CoV-2 (PCR) Not Detected (NotDetected) Coronavirus NL63 (PCR) Not Detected (NotDetected) Human Metapneumovir PCR Not Detected (NotDetected) Influenza Type A (PCR) Not Detected (NotDetected) Influenza Type B (PCR) Not Detected (NotDetected) M. pneumoniae (PCR) Not Detected (NotDetected) Parainfluenza 1 (PCR) Not Detected (NotDetected) Parainfluenza 2 (PCR) Not Detected (NotDetected) Parainfluenza 3 (PCR) Not Detected (NotDetected) Parainfluenza 4 (PCR) Not Detected (NotDetected) RSV (PCR) Not Detected (NotDetected) Entero/Rhino (PCR) Not Detected (NotDetected) Administered Medications Discontinued Medications Ioversol (Optiray 320 125ml) 125 ml IV ONCE ONE Stop: 05/14/24 00:45 Last Admin: 05/14/24 00:44 Dose: 118 ml Documented By: ERYN Ondansetron HCl (Ondansetron Inj 2 Mg/Ml 2 Ml Vial) 4 mg IV NOW STA Stop: 05/14/24 01:19 Last Admin: 05/14/24 01:24 Dose: 4 mg Documented By: ANA Imaging Data Radiologist's Impression: Chest X-Ray 05/13/24 23:45 Exam(s): XR CXR 1 VIEW EXAM: XR Chest, 1 View CLINICAL HISTORY: Reason for exam: dizziness. TECHNIQUE: Frontal view of the chest. COMPARISON: Prior chest x-ray from August 24, 2022. FINDINGS: Lungs: Moderate to heavy peribronchial thickening of the central and lower lobe bronchi with patchy opacity at the right lung base. Pleural space: Unremarkable. No pneumothorax. Heart: Unremarkable. No cardiomegaly. Mediastinum: Unremarkable. Normal mediastinal contour. Bones/joints: Unremarkable. No acute fracture. IMPRESSION: Bronchitis with right lower lobe infiltrate. Electronically signed by: Erika June MD 05/14/24 02:[address] 05/13/24 23:45 EXAM: CT head/brain wo con CLINICAL HISTORY: dizziness; nausea/vomiting TECHNIQUE: Axial non-contrast CT scan of the brain was performed from the skull base to the high parietal region. One of the following dose reduction techniques were utilized for this exam: Automated exposure control, adjustment of the mA and/or kV according to patient size, use of iterative reconstruction. COMPARISON: 08/28/2022. FINDINGS: Brain Parenchyma: Right superior cerebellar hypodense area likely representing chronic infarction. Temporal evolution noted, the prior CT study dated 08/28/2022 showed acute infarcts in this region. Chronic microvascular ischemic changes. No evidence of acute hemorrhage, or mass effect. Ventricular System: Ventricles are normal in size and configuration. No evidence of hydrocephalus or ventricular enlargement. Subarachnoid Spaces: Mild accentuated cortical sulci and extra-axial CSF spaces. new finding No evidence of subarachnoid hemorrhage or extra-axial fluid collections. Brainstem: Normal size and signal. No masses, lesions, or areas of abnormal signal. Orbits: Normal appearance of the globes, optic nerves, and extraocular muscles. No evidence of orbital masses or abnormal signal. Sinuses: Clear paranasal sinuses. No evidence of sinusitis or mucosal thickening. Mastoid Air Cells: Clear mastoid air cells. No evidence of mastoiditis. Skull: Normal skull morphology. IMPRESSION: 1. No definite acute abnormality detected in plain CT head at present 2. Right superior cerebellar hypodense area , representing chronic infarction . Temporal evolution noted, the prior CT study dated 08/28/2022 showed acute infarcts in this region. 3. Chronic microvascular ischemic changes and senile cortical atrophy Electronically signed by Thaddeus Corcoran 05-14-2024 02:15 AM Head CTA 05/13/24 23:45 EXAM: CT angio head w con CLINICAL HISTORY: dizziness; N/V TECHNIQUE: Axial CT angiography of the head was done with contrast and sagittal and coronal reformats with MIP reconstructions. 118 ML OPTIRAY 320 intravenous contrast was administered. One of these 3D techniques was utilized: Maximum Intensity Pixel (MIP), 3D Reconstructed Images, Volume Rendered Images, Surface Shaded Rendering. One of the following dose reduction techniques were utilized for this exam: Automated exposure control, adjustment of the mA and/or kV according to patient size, and use of iterative reconstruction. DLP: 1104.47 COMPARISON: CT head same date reviewed 05/13/2024 FINDINGS: Intracranial Arteries: The intracranial portions of the internal carotid arteries, anterior cerebral arteries, middle cerebral arteries, posterior cerebral arteries, basilar artery, and vertebral arteries are well-opacified. No evidence of aneurysm, stenosis, or occlusion. Mild insignificant atherosclerotic changes of the internal carotids. [place]: The [place] is complete. Normal caliber of the communicating arteries. No vascular malformations or aneurysms. Venous Structures: Normal opacification of the major dural venous sinuses. No evidence of venous sinus thrombosis. Brain Parenchyma: No enhancing masses seen. No evidence of acute hemorrhage, or mass effect. For rest of the findings please review the detailed brain report. IMPRESSION: 1. Normal CT angiography of the head. 2. No evidence of significant vascular abnormalities. Electronically signed by Thaddeus Corcoran 05-14-2024 02:00 AM Neck CTA 05/13/24 23:45 EXAM: CT angio neck with con CLINICAL HISTORY: dizziness; N/V TECHNIQUE: CT angiography study of the neck vessels with IV contrast was performed and multiple axial sections were obtained with coronal and sagittal reconstructions. 118 ML OPTIRAY 320 intravenous contrast was administered. One of the following dose reduction techniques were utilized for this exam: Automated exposure control, adjustment of the mA and/or kV according to patient size, and use of iterative reconstruction. One of these 3D techniques was utilized: Maximum Intensity Pixel (MIP), 3D Reconstructed Images, Volume Rendered Images, Surface Shaded Rendering. DLP 1104.47 mGy-cm COMPARISON: CT angio neck with contrast 08/24/2022. FINDINGS: Carotid Arteries: Common carotid arteries, internal carotid arteries, and external carotid arteries bilaterally are well-opacified. No evidence of significant stenosis, occlusion, or aneurysm. Multiple bilateral atherosclerotic calcified plaques are noted. Vertebral Arteries: Vertebral arteries bilaterally are well-opacified. right vertebral artery is smaller than the left one ( variant) No evidence of significant stenosis, occlusion, or aneurysm. No significant atherosclerotic changes. Jugular Veins: Normal opacification of the internal and external jugular veins bilaterally. No evidence of thrombosis or compression. Subclavian Arteries: Subclavian arteries bilaterally are well-opacified. No evidence of significant stenosis, occlusion, or aneurysm. Thyroid Gland: Normal size and morphology of the thyroid gland. No masses or nodules. Soft Tissues: Normal appearance of the surrounding soft tissues of the neck. No abnormal masses or lymphadenopathy. Spondylodegenerative changes are noted in the cervical spine. IMPRESSION: 1. Multiple bilateral carotids atherosclerotic calcified plaques. Unchanged 2. No evidence of significant stenosis, occlusion, or aneurysm. Electronically signed by Thaddeus Corcoran 05-14-2024 02:21 AM Discharge Plan Visit Data Chief Complaint: Dizziness Stated Complaint: DIZZY, N/V SINCE 1700 ED Provider: Aline Billy Discharge Problem: Dizziness, Brain TIA, Pneumonia Forms Stand Alone Forms: My [facility] Prescriptions Prescriptions: No Action atorvastatin 80 mg tablet 80 mg PO Q OTHER DAY Rx Instructions: TAKES AT NIGHT metformin 1,000 mg tablet 1,000 mg PO BID lisinopril-hydrochlorothiazide 20-25 mg tablet 0.5 tab PO HS Ozempic 0.25 mg or 0.5 mg (2 mg/3 mL) pen injector 0.5 mg SUBCUT WK Rx Instructions: EVERY 7 DAYS INJECTION ON SATURDAYS aspirin 81 mg tablet,delayed release (DR/EC) 81 mg PO QAM loperamide [Imodium A-D] 2 mg Capsule 2 mg PO QAM Referrals Referrals: Amadna Darby PA-C [Primary Care Provider] -
[2024-05-14 00:01] VITALS: TEMP 97.9
[2024-05-14 00:01] LABS: Basophils # (auto) 0.06 K/uL (0.00-0.20); Basophils % (auto) 0.4 %; Eosinophils # (auto) 0.19 K/uL (0.00-0.50); Eosinophils % (auto) 1.3 %; Hematocrit (blood only) 40.3 % (42.0-52.0); Hemoglobin 13.7 g/dl (14.0-18.0); Immature Granulocytes # (auto) 0.07 K/uL (0.01-0.20); Immature Granulocytes % (auto) 0.5 %; Lymphocytes # (auto) 2.57 K/uL (1.20-3.40); Mean Corpuscular Hemoglobin 30.1 pg (25.0-34.0); Mean Corpuscular Volume 88.6 fL (80.0-100.0); Mean Platelet Volume 10.3 fL (9.4-12.4); Monocytes # (auto) 0.65 K/uL (0.11-0.59); Monocytes % (auto) 4.5 %; Neutrophils # (auto) 10.76 K/uL (1.40-6.50); Neutrophils % (auto) 75.3 %; Platelet Count 251 K/uL (130-400); RDW Coefficient of Variation 12.8 % (11.5-14.5); RDW Standard Deviation 41.4 fL (36.4-46.3); Red Blood Count 4.55 M/uL (4.70-6.10)
[2024-05-14 00:15] LABS: Albumin Globulin Ratio 1.7 (0.9-2); Albumin Level 4.4 gm/dl (3.4-5.0); BUN Creatinine Ratio 22.3 (10-20); Bilirubin,Total 0.9 mg/dl (0.2-1.0); Calcium 9.6 mg/dl (8.6-10.3); Creatinine Clr Calc Pharmacy 51.3 ml/min; Globulin 2.6 gm/dl (2.5-4.0); Magnesium 1.7 mg/dl (1.7-2.4); Potassium 4.3 mmol/L (3.5-5.1)
[2024-05-14 00:21] LABS: Troponin I High Sensitivity 3.9 pg/ml (0-20)
[2024-05-14 00:34] LABS: INR 0.9 (0.9-1.1); Prothrombin Time 10.2 Seconds (9.0-12.0)
[2024-05-14] MEDS: OPTIRAY 320 125ml IV ONE ×2 (00:44→04:14)
[2024-05-14] MEDS: ONDANSETRON INJ 2 MG/ML 2 ML VIAL IV STA (01:24)
[2024-05-14 02:00] LABS: Adenovirus PCR Not Detected (NotDetected); Bordetella parapertussis PCR Not Detected (NotDetected); Bordetella pertussis PCR Not Detected (NotDetected); Chlamydia pneumoniae PCR Not Detected (NotDetected); Coronavirus 229E PCR Not Detected (NotDetected); Coronavirus CoV-2 (COVID19)PCR Not Detected (NotDetected); Coronavirus HKU1 PCR Not Detected (NotDetected); Coronavirus NL63 PCR Not Detected (NotDetected); Coronavirus OC43PCR Not Detected (NotDetected); Human Metapneumovirus PCR Not Detected (NotDetected); Influenza A PCR Not Detected (NotDetected); Influenza B PCR Not Detected (NotDetected); Mycoplasma pneumoniae PCR Not Detected (NotDetected); Parainfluenza Virus 1 PCR Not Detected (NotDetected); Parainfluenza Virus 2 PCR Not Detected (NotDetected); Parainfluenza Virus 3 PCR Not Detected (NotDetected); Parainfluenza Virus 4 PCR Not Detected (NotDetected); Respiratory Syncytial VirusPCR Not Detected (NotDetected); Rhinovirus/Enterovirus PCR Not Detected (NotDetected)
--- NOTE | 2024-05-14 02:01 | CT Scan Report ---
EXAM: CT angio head w con CLINICAL HISTORY: dizziness; N/V TECHNIQUE: Axial CT angiography of the head was done with contrast and sagittal and coronal reformats with MIP reconstructions. 118 ML OPTIRAY 320 intravenous contrast was administered. One of these 3D techniques was utilized: Maximum Intensity Pixel (MIP), 3D Reconstructed Images, Volume Rendered Images, Surface Shaded Rendering. One of the following dose reduction techniques were utilized for this exam: Automated exposure control, adjustment of the mA and/or kV according to patient size, and use of iterative reconstruction. DLP: 1104.47 COMPARISON: CT head same date reviewed 05/13/2024 FINDINGS: Intracranial Arteries: The intracranial portions of the internal carotid arteries, anterior cerebral arteries, middle cerebral arteries, posterior cerebral arteries, basilar artery, and vertebral arteries are well-opacified. No evidence of aneurysm, stenosis, or occlusion. Mild insignificant atherosclerotic changes of the internal carotids. [place]: The [place] is complete. Normal caliber of the communicating arteries. No vascular malformations or aneurysms. Venous Structures: Normal opacification of the major dural venous sinuses. No evidence of venous sinus thrombosis. Brain Parenchyma: No enhancing masses seen. No evidence of acute hemorrhage, or mass effect. For rest of the findings please review the detailed brain report. IMPRESSION: 1. Normal CT angiography of the head. 2. No evidence of significant vascular abnormalities. Electronically signed by Thaddeus Corcoran 05-14-2024 02:00 AM
--- NOTE | 2024-05-14 02:15 | XRay Report ---
Exam(s): XR CXR 1 VIEW EXAM: XR Chest, 1 View CLINICAL HISTORY: Reason for exam: dizziness. TECHNIQUE: Frontal view of the chest. COMPARISON: Prior chest x-ray from August 24, 2022. FINDINGS: Lungs: Moderate to heavy peribronchial thickening of the central and lower lobe bronchi with patchy opacity at the right lung base. Pleural space: Unremarkable. No pneumothorax. Heart: Unremarkable. No cardiomegaly. Mediastinum: Unremarkable. Normal mediastinal contour. Bones/joints: Unremarkable. No acute fracture. IMPRESSION: Bronchitis with right lower lobe infiltrate. Electronically signed by: Erika June MD 05/14/24 02:14 AM
--- NOTE | 2024-05-14 02:16 | CT Scan Report ---
EXAM: CT head/brain wo con CLINICAL HISTORY: dizziness; nausea/vomiting TECHNIQUE: Axial non-contrast CT scan of the brain was performed from the skull base to the high parietal region. One of the following dose reduction techniques were utilized for this exam: Automated exposure control, adjustment of the mA and/or kV according to patient size, use of iterative reconstruction. COMPARISON: 08/28/2022. FINDINGS: Brain Parenchyma: Right superior cerebellar hypodense area likely representing chronic infarction. Temporal evolution noted, the prior CT study dated 08/28/2022 showed acute infarcts in this region. Chronic microvascular ischemic changes. No evidence of acute hemorrhage, or mass effect. Ventricular System: Ventricles are normal in size and configuration. No evidence of hydrocephalus or ventricular enlargement. Subarachnoid Spaces: Mild accentuated cortical sulci and extra-axial CSF spaces. new finding No evidence of subarachnoid hemorrhage or extra-axial fluid collections. Brainstem: Normal size and signal. No masses, lesions, or areas of abnormal signal. Orbits: Normal appearance of the globes, optic nerves, and extraocular muscles. No evidence of orbital masses or abnormal signal. Sinuses: Clear paranasal sinuses. No evidence of sinusitis or mucosal thickening. Mastoid Air Cells: Clear mastoid air cells. No evidence of mastoiditis. Skull: Normal skull morphology. IMPRESSION: 1. No definite acute abnormality detected in plain CT head at present 2. Right superior cerebellar hypodense area , representing chronic infarction . Temporal evolution noted, the prior CT study dated 08/28/2022 showed acute infarcts in this region. 3. Chronic microvascular ischemic changes and senile cortical atrophy Electronically signed by Thaddeus Corcoran 05-14-2024 02:15 AM
[2024-05-14 02:19] LABS: Appearance Urine Clear (Clear); Bacteria Urine Automated None Seen (None Seen); Bilirubin Urine Negative (Negative); Blood Urine Negative (Negative); Cast Urine Automated 0-2 /lpf (0-2); Color Urine Yellow; Epithelial Cell Urine Auto 0-2 /hpf (0-2); Glucose Urine UA 3+ (Negative); Ketones Urine Negative (Negative); Leukocyte Esterase Urine Negative (Negative); Nitrite Urine Negative (Negative); Protein Urine Trace (Negative); RBC Urine Automated 0-2 /hpf (0-2); Specific Gravity Urine 1.042 (1.000-1.030); Urobilinogen Urine Negative (Negative); WBC Urine Automated 0-5 /hpf (0-5); pH Urine 5.5 (4.5-7.5)
--- NOTE | 2024-05-14 02:21 | CT Scan Report ---
EXAM: CT angio neck with con CLINICAL HISTORY: dizziness; N/V TECHNIQUE: CT angiography study of the neck vessels with IV contrast was performed and multiple axial sections were obtained with coronal and sagittal reconstructions. 118 ML OPTIRAY 320 intravenous contrast was administered. One of the following dose reduction techniques were utilized for this exam: Automated exposure control, adjustment of the mA and/or kV according to patient size, and use of iterative reconstruction. One of these 3D techniques was utilized: Maximum Intensity Pixel (MIP), 3D Reconstructed Images, Volume Rendered Images, Surface Shaded Rendering. DLP 1104.47 mGy-cm COMPARISON: CT angio neck with contrast 08/24/2022. FINDINGS: Carotid Arteries: Common carotid arteries, internal carotid arteries, and external carotid arteries bilaterally are well-opacified. No evidence of significant stenosis, occlusion, or aneurysm. Multiple bilateral atherosclerotic calcified plaques are noted. Vertebral Arteries: Vertebral arteries bilaterally are well-opacified. right vertebral artery is smaller than the left one ( variant) No evidence of significant stenosis, occlusion, or aneurysm. No significant atherosclerotic changes. Jugular Veins: Normal opacification of the internal and external jugular veins bilaterally. No evidence of thrombosis or compression. Subclavian Arteries: Subclavian arteries bilaterally are well-opacified. No evidence of significant stenosis, occlusion, or aneurysm. Thyroid Gland: Normal size and morphology of the thyroid gland. No masses or nodules. Soft Tissues: Normal appearance of the surrounding soft tissues of the neck. No abnormal masses or lymphadenopathy. Spondylodegenerative changes are noted in the cervical spine. IMPRESSION: 1. Multiple bilateral carotids atherosclerotic calcified plaques. Unchanged 2. No evidence of significant stenosis, occlusion, or aneurysm. Electronically signed by Thaddeus Corcoran 05-14-2024 02:21 AM
--- NOTE | 2024-05-14 04:15 | History & Physical Report ---
Date of Service May 14, 2024 Assessment & Plan (1) Dizziness: (2) Bronchitis: Plan 69-year-old male PMHx HTN, HLD, T2DM, prior stroke, and baseline ataxia presenting to the hospital via EMS for dizziness and vomiting. ED evaluation reveals leukocytosis of 14.3, H&H 13.7/40.3, CMP Na 135, BUN 30, ratio 22.3, UA negative, BioFire negative, CXR with bronchitis and RLL infiltrate; head CT, head CTA, neck CTA without acute findings but does redemonstrate chronic findings. #Dizziness Presenting w/ dizziness and blurry vision starting around 1630 the day [employer]; symptoms have since resolved by time of admission. Prior CVA 08/24/2022 requiring TNK. Known history PFO per prior echo (2022). - Telestroke not consulted while in ED - CT head without acute findings, does reveal chronic stable findings; CTA head/neck without acute findings but does reveal chronic changes; MRI pending - Echo 08/25/2022 with PFO, mild concentric LVH, grade 1 diastolic dysfunction, LAE; pending echo - 08/2022- A1c @ 6.5%; lipids total 63, LDL 21, HDL 28, TG 70, on atorvastatin 80mg - pending repeat - Troponin 3.9; EKG NSR, rate 70 bpm - Continue aspirin 81 mg daily - Labetalol 10mg IV prn q10min SBP > 200 #Bronchitis Symptoms of dizziness, no overt cough/URI symptoms but ? exposure to brother a few days [employer]. Received ceftriaxone and azithromycin in ED. - CBC leukocytosis 14.3; procalcitonin pending - CXR RLL infiltrate - Continue ceftriaxone 2 g IV x 5 days + azithromycin 500 mg po x 3 days #Anemia Symptoms of dizziness and blurry vision resulting in patient's arrival to hospital; H&H on admission 13.7/40.3. No evidence of blood loss per patient. - MCH(C)/MCV WNL; pending iron studies - Vitamin B12 and folate pending #T2DM H/o DMT2; at home regimen Ozempic weekly, metformin twice daily - Most recent A1C (2022) 6.5%; pending repeat - Hold home regimen; SSI with target BSG range 110-140mg/dL, CF 30, carb ratio 10 - BSG ACHS - Pharm glycemic management consult placed, appreciate assistance - adjust regimen as needed #HLD- Atorvastatin #HTN- Lisinopril-HCTZ, HOLD Dispo: Admit, med/tele VTE prophylaxis: Lovenox This document was dictated utilizing Quill. Please excuse any grammatical errors that may be secondary to use of this software. Admission and Anticipated Discharge Date Admission Date: 05/14/2024 History of Present Illness Chief Complaint: Dizziness Primary Care Provider: Amanda Darby 69-year-old male PMHx HTN, HLD, T2DM, prior stroke, and baseline ataxia presenting to the hospital via EMS for dizziness and vomiting. Patient went to [facility] the day of arrival and felt normal, then around 1630 patient admits to "not feeling right." Had yelled over to his dog for getting water on the ground then "felt funny." He went to sit down on the couch and had an episode of blurry vision followed by nausea with vomiting x 2-3 episodes. Was attempting to ambulate when he suddenly became unsteady and had to hold himself up with the wall. The symptoms continued for multiple hours and he continued to have blurry vision with unsteadiness which felt similar to his previous CVA. Symptoms did not resolve with resting/napping, so he decided to be evaluated. States that he is not having additional symptoms to include chest pain, palpitations, SOB, abdominal pain, D/C, LUTS, weakness, or syncope. States he may have some coughing but not a bothersome amount, and he was around his brother who was fe eling ill a few days ago. Patient takes a daily ASA. ED evaluation reveals leukocytosis 14.30, H&H 13.7/40.3, CMP with sodium 135, BUN 30, ratio 22.3, glucose 252; UA negative for infection and BioFire negative; CXR reveals bronchitis with RLL infiltrate, head CT without acute findings but does reveal right superior cerebellar hypodense area representing chronic infarction as well as chronic microvascular ischemic changes and senile cortical atrophy; head CTA/neck CTA without acute findings, neck CT revealing multiple bilateral carotid atherosclerotic calcified plaques which have been unchanged. Patient received Zofran in ED as well as ceftriaxone + azithromycin. Please see Dr. Weldon's attestation for adjustments/additions to treatment plan. Allergies Allergy/AdvReac Type Severity Reaction Status Date / Time No Known Drug Allergies Allergy Unknown Unknown Verified 05/14/24 01:46 Home Medications Medication Instructions Recorded Confirmed Type atorvastatin 80 mg tablet 80 mg PO Q OTHER DAY 08/24/22 05/14/24 History metformin 1,000 mg tablet 1,000 mg PO BID 08/24/22 05/14/24 History aspirin 81 mg tablet,delayed 81 mg PO QAM 05/14/24 05/14/24 History release lisinopril 20 0.5 tab PO HS 05/14/24 05/14/24 History mg-hydrochlorothiazide 25 mg tablet loperamide 2 mg capsule (Imodium 2 mg PO QAM 05/14/24 05/14/24 History A-D) semaglutide 0.25 mg or 0.5 mg (2 0.5 mg subcut WK 05/14/24 05/14/24 History mg/3 mL) subcutaneous pen injector (Ozempic) Past Med/Surg History Problem List (Updated 05/14/24 @ 05:02 by Guille Fernandez PA-C) Bronchitis Pneumonia (Acute) Brain TIA (Acute) Dizziness (Acute) Papilloma of buccal mucosa Residual cyst Gum abscess Hyperlipidemia HTN (hypertension) Ataxia DM II (diabetes mellitus, type II), controlled Cognitive complaints Memory loss Cerebellar stroke Hypomagnesemia Hypokalemia Surgical History Hx of biopsy (03/26/24) FINAL DIAGNOSIS In office procedure Dr. Anderson Oral cavity, excision: - Inflamed squamous mucosa and fibrous tissue. - Clinical correlation is recommended. - See comment Social History Smoking Status: Former smoker Second Hand Exposure: No; Do You Dip or Chew Tobacco: No; Hx Alcohol Use: No Hx Substance Use: No Preferred Language: Lithuanian Communication Ability: Effective Finance Lead Required: No Beliefs That Will Affect Care: None marital status: / Current Living Situation: Alone current occupational status: retired How many Children do You have: 2 Feels Safe at Home: Yes Safety Concerns: Feels Safe At This Time during the past year weight has: remained stable Assistive Devices: Denture - Upper Review of Systems Review of Systems: All systems reviewed & are unremarkable except as noted in Subjective Physical Exam Physical Exam: General: No acute distress Skin: Warm and dry Head: Normocephalic, atraumatic Eyes: PERRL, conjunctivae clear, sclera non-icteric ENT: External ear and ear canal without swelling; nose atraumatic; good dentition, tongue normal appearance, pharynx normal Neck: Supple, no LAD Cardio: RRR, no M/G/R, S1 and S2 normal Resp: No respiratory distress, Lungs CTA in all lobes bilaterally, no wheezes, rales, or rhonchi Abdomen: Soft, symmetric, nontender; no distention; No masses or hepatosplenomegaly; Bowel sounds normoactive MSK: No deformities, full ROM throughout; pulses palpable and equal; no edema. Neuro: II- PERRL, no VF deficits III, IV, - EOMs intact, no deviation, no nystagmus V- Normal sensation in all locations VII- No asymmetry, no nasolabial fold flattening VIII- Normal hearing to speech IX, X- Normal palatal elevation, no ulnar deviation XI- 5/5 head turn + shoulder shrug bilaterally XII- Midline tongue protrusion Motor: 5/5 strength throughout BUE/BLE; no pronator drift Reflexes: WNL throughout Sensory: Normal sensation throughout, no hemineglect, Romberg absent Coordination: Normal [id number], no tremor Gait: Unable to asses Psych: Appropriate mood and affect; good judgement and insight. Results & Data Results & Data Vital Signs (Past 12 Hours) Vital Signs Temp Pulse Resp BP Pulse Ox O2 Del Method 05/14/24 03:47 81 05/14/24 02:57 74 18 93 05/14/24 02:56 112/71 05/14/24 02:56 112/71 05/14/24 02:24 73 13 91 05/14/24 02:21 75 14 92 05/14/24 02:00 144/86 H 05/14/24 02:00 144/86 H 05/14/24 01:57 74 15 93 05/14/24 01:42 77 15 92 05/14/24 01:39 73 16 94 05/14/24 01:39 128/77 05/14/24 01:39 128/77 05/14/24 01:39 128/77 05/14/24 01:18 77 17 93 05/14/24 01:00 78 16 93 05/14/24 00:51 83 16 93 05/14/24 00:24 75 17 93 05/14/24 00:12 76 18 93 05/14/24 00:00 78 19 92 05/13/24 23:57 82 18 92 05/13/24 23:56 85 05/13/24 23:45 Room Air 05/13/24 23:45 Room Air 05/13/24 23:27 36.6 C 82 16 152/87 H 92 Room Air Laboratory Results 05/14/24 05/14/24 05/13/24 01:55 00:55 23:45 WBC 14.30 H RBC 4.55 L Hgb 13.7 L Hct 40.3 L MCV 88.6 MCH 30.1 MCHC 34.0 RDW Std Deviation 41.4 RDW Coeff of Pamela 12.8 Plt Count 251 MPV 10.3 Immature Gran % (Auto) 0.5 Neut % (Auto) 75.3 Lymph % (Auto) 18.0 [place] % (Auto) 4.5 Eos % (Auto) 1.3 Baso % (Auto) 0.4 Neut # (Auto) 10.76 H Lymph # (Auto) 2.57 [place] # (Auto) 0.65 H Eos # (Auto) 0.19 Baso # (Auto) 0.06 Immature Gran # (Auto) 0.07 PT 10.2 INR 0.9 Sodium 135 L Potassium 4.3 Chloride 102 Carbon Dioxide 22 Anion Gap 11 BUN 31 H Creatinine 1.39 Est Cr Clr Drug Dosing 51.3 eGFR 54.88 BUN/Creatinine Ratio 22.3 H Glucose 252 H Calcium 9.6 Magnesium 1.7 Total Bilirubin 0.9 AST 19 ALT 25 Alkaline Phosphatase 52 Troponin I High Sens 3.9 Total Protein 7.0 Albumin 4.4 Globulin 2.6 Albumin/Globulin Ratio 1.7 Urine Color Yellow Urine Appearance Clear Urine pH 5.5 Ur Specific [place] 1.042 H Urine Protein Trace H Urine Glucose (UA) 3+ H Urine Ketones Negative Urine Blood Negative Urine Nitrite Negative Urine Bilirubin Negative Urine Urobilinogen Negative Ur Leukocyte Esterase Negative Urine WBC (Auto) 0-5 Urine RBC (Auto) 0-2 U Hyaline Cast (Auto) 0-2 U Epithel Cells (Auto) 0-2 Urine Bacteria (Auto) None Seen Adenovirus (PCR) Not Detected B. pertussis DNA (PCR) Not Detected B.parapertussis DNA PCR Not Detected C. pneumoniae DNA (PCR) Not Detected Coronavirus OC43 (PCR) Not Detected Coronavirus HKU1 (PCR) Not Detected Coronavirus 229E (PCR) Not Detected SARS-CoV-2 (PCR) Not Detected Coronavirus NL63 (PCR) Not Detected Human Metapneumovir PCR Not Detected Influenza Type A (PCR) Not Detected Influenza Type B (PCR) Not Detected M. pneumoniae (PCR) Not Detected Parainfluenza 1 (PCR) Not Detected Parainfluenza 2 (PCR) Not Detected Parainfluenza 3 (PCR) Not Detected Parainfluenza 4 (PCR) Not Detected RSV (PCR) Not Detected Entero/Rhino (PCR) Not Detected Diagnostic Findings Chest X-Ray 05/13/24 23:45 Exam(s): XR CXR 1 VIEW EXAM: XR Chest, 1 View CLINICAL HISTORY: Reason for exam: dizziness. TECHNIQUE: Frontal view of the chest. COMPARISON: Prior chest x-ray from August 24, 2022. FINDINGS: Lungs: Moderate to heavy peribronchial thickening of the central and lower lobe bronchi with patchy opacity at the right lung base. Pleural space: Unremarkable. No pneumothorax. Heart: Unremarkable. No cardiomegaly. Mediastinum: Unremarkable. Normal mediastinal contour. Bones/joints: Unremarkable. No acute fracture. IMPRESSION: Bronchitis with right lower lobe infiltrate. Electronically signed by: Erika June MD 05/14/24 02:[address] 05/13/24 23:45 EXAM: CT head/brain wo con CLINICAL HISTORY: dizziness; nausea/vomiting TECHNIQUE: Axial non-contrast CT scan of the brain was performed from the skull base to the high parietal region. One of the following dose reduction techniques were utilized for this exam: Automated exposure control, adjustment of the mA and/or kV according to patient size, use of iterative reconstruction. COMPARISON: 08/28/2022. FINDINGS: Brain Parenchyma: Right superior cerebellar hypodense area likely representing chronic infarction. Temporal evolution noted, the prior CT study dated 08/28/2022 showed acute infarcts in this region. Chronic microvascular ischemic changes. No evidence of acute hemorrhage, or mass effect. Ventricular System: Ventricles are normal in size and configuration. No evidence of hydrocephalus or ventricular enlargement. Subarachnoid Spaces: Mild accentuated cortical sulci and extra-axial CSF spaces. new finding No evidence of subarachnoid hemorrhage or extra-axial fluid collections. Brainstem: Normal size and signal. No masses, lesions, or areas of abnormal signal. Orbits: Normal appearance of the globes, optic nerves, and extraocular muscles. No evidence of orbital masses or abnormal signal. Sinuses: Clear paranasal sinuses. No evidence of sinusitis or mucosal thickening. Mastoid Air Cells: Clear mastoid air cells. No evidence of mastoiditis. Skull: Normal skull morphology. IMPRESSION: 1. No definite acute abnormality detected in plain CT head at present 2. Right superior cerebellar hypodense area , representing chronic infarction . Temporal evolution noted, the prior CT study dated 08/28/2022 showed acute infarcts in this region. 3. Chronic microvascular ischemic changes and senile cortical atrophy Electronically signed by Thaddeus Corcoran 05-14-2024 02:15 AM Head CTA 05/13/24 23:45 EXAM: CT angio head w con CLINICAL HISTORY: dizziness; N/V TECHNIQUE: Axial CT angiography of the head was done with contrast and sagittal and coronal reformats with MIP reconstructions. 118 ML OPTIRAY 320 intravenous contrast was administered. One of these 3D techniques was utilized: Maximum Intensity Pixel (MIP), 3D Reconstructed Images, Volume Rendered Images, Surface Shaded Rendering. One of the following dose reduction techniques were utilized for this exam: Automated exposure control, adjustment of the mA and/or kV according to patient size, and use of iterative reconstruction. DLP: 1104.47 COMPARISON: CT head same date reviewed 05/13/2024 FINDINGS: Intracranial Arteries: The intracranial portions of the internal carotid arteries, anterior cerebral arteries, middle cerebral arteries, posterior cerebral arteries, basilar artery, and vertebral arteries are well-opacified. No evidence of aneurysm, stenosis, or occlusion. Mild insignificant atherosclerotic changes of the internal carotids. [place]: The [place] is complete. Normal caliber of the communicating arteries. No vascular malformations or aneurysms. Venous Structures: Normal opacification of the major dural venous sinuses. No evidence of venous sinus thrombosis. Brain Parenchyma: No enhancing masses seen. No evidence of acute hemorrhage, or mass effect. For rest of the findings please review the detailed brain report. IMPRESSION: 1. Normal CT angiography of the head. 2. No evidence of significant vascular abnormalities. Electronically signed by Thaddeus Corcoran 05-14-2024 02:00 AM Neck CTA 05/13/24 23:45 EXAM: CT angio neck with con CLINICAL HISTORY: dizziness; N/V TECHNIQUE: CT angiography study of the neck vessels with IV contrast was performed and multiple axial sections were obtained with coronal and sagittal reconstructions. 118 ML OPTIRAY 320 intravenous contrast was administered. One of the following dose reduction techniques were utilized for this exam: Automated exposure control, adjustment of the mA and/or kV according to patient size, and use of iterative reconstruction. One of these 3D techniques was utilized: Maximum Intensity Pixel (MIP), 3D Reconstructed Images, Volume Rendered Images, Surface Shaded Rendering. DLP 1104.47 mGy-cm COMPARISON: CT angio neck with contrast 08/24/2022. FINDINGS: Carotid Arteries: Common carotid arteries, internal carotid arteries, and external carotid arteries bilaterally are well-opacified. No evidence of significant stenosis, occlusion, or aneurysm. Multiple bilateral atherosclerotic calcified plaques are noted. Vertebral Arteries: Vertebral arteries bilaterally are well-opacified. right vertebral artery is smaller than the left one ( variant) No evidence of significant stenosis, occlusion, or aneurysm. No significant atherosclerotic changes. Jugular Veins: Normal opacification of the internal and external jugular veins bilaterally. No evidence of thrombosis or compression. Subclavian Arteries: Subclavian arteries bilaterally are well-opacified. No evidence of significant stenosis, occlusion, or aneurysm. Thyroid Gland: Normal size and morphology of the thyroid gland. No masses or nodules. Soft Tissues: Normal appearance of the surrounding soft tissues of the neck. No abnormal masses or lymphadenopathy. Spondylodegenerative changes are noted in the cervical spine. IMPRESSION: 1. Multiple bilateral carotids atherosclerotic calcified plaques. Unchanged 2. No evidence of significant stenosis, occlusion, or aneurysm. Electronically signed by Thaddeus Corcoran 05-14-2024 02:21 AM Medications Administered Ondansetron 4 mg IV Ceftriaxone 2 mg IV Azithromycin 500 mg p.o. ECG Additional Comments: NSR 70 bpm, NE 164, QRS 92, QT/QTc 390/444, PRT 53/39/62 Code Status & VTE Plan Code Status Conditional - OK with cardiac intervention to include chemical, electrical - NO mechanical ventilation such as intubation - "NO machines to help me survive." Supervising Physician Co-Signing Physician Notes Patient seen and examined, chart reviewed, case discussed with KATHRYN Fernandez and I agree with the assessment and plan as above. In brief, patient is a 69yo male with HTN, HLP, DM, prior CVA presenting with dizziness and vomiting as well as blurry vision. Symptoms largely resolved prior to arrival to the ER. On exam patient is resting comfortably, NAD Skin - no rash HEENT - MMM, Neck supple Heart - +S1/S2 Lungs - CTA Abd - soft, NT/ND Neuro - CN intact, strength intact Labs and images reviewed Assessment/Plan 69yo male with histoyr of HTN, HLP, DM, prior CVA presenting with blurry vision, dizziness and vomiting. Concern for possible TIA vs CVA, posterior/cerebellar given symptoms -MRI pending -Repeat A1C -Echo -PT/OT evaluations appreciated -Remainder as above PG Care Time/CCT Total # of Minutes Spent Total Time Spent with Patient: Total time spent is greater than 50% in coordination of care (as documented) at patient's floor/unit and/or counseling patient: Coding Level of Care Code 83509 INT INP/OBS CARE 3/75MIN Diagnoses Dizziness R42 Bronchitis J40
[2024-05-14] MEDS: cefTRIAXone SODIUM 2,000 MG/50 ML BAG IV STA (04:31)
[2024-05-14] MEDS: AZITHROMYCIN 250 MG TAB PO ONE (04:31)
[2024-05-14 05:37] LABS: Transferrin 281 mg/dl (200-360); Unsaturated Iron Binding Cap 287 mcg/dl (155-355)
[2024-05-14 05:49] LABS: Folate (Folic Acid),Ser orPlas 17.54 ng/ml (>5.38)
[2024-05-14] MEDS: GADOBUTROL 65ML VIAL IV ONE (07:10)
--- NOTE | 2024-05-14 08:16 | Magnetic Resonance Report ---
EXAM: MR brain wo/w con CLINICAL HISTORY: Dizziness, TIA TECHNIQUE: Different pulse sequences were performed in different planes for the brain without and with GD-DTPA injection. Images were sent through PACs for interpretation. COMPARISON: Prior CT study dated 05/13/2024. FINDINGS: Subacute infarction at the cerebellar vermis exhibits bright signals on DWI T2 and FLAIR WI. Dark signals on the ADC map Chronic infarction with encephalomalacia is seen at the right cerebellar hemisphere, exhibiting CSF signals on different pulse sequences. Altered deep white matter signals are seen at the forceps minor, forceps major, periventricular, and centrum semiovale regions. These exhibit bright signals on T2 and FLAIR WI and intermediate signals on T1 WI. No appreciable enhancement after Gd-DTPA injection. Findings suggest consequences of small vessel disease, e.g., hypertensive and/or diabetic vasculopathy. Normal MRI appearance of the deep white matter and central lawrence matter aggregates. Normal size and configuration of the cerebral ventricles. Normal MRI appearance of different anatomical parts of the brain stem, namely the midbrain, jalil, and medulla oblongata. Normal MRI appearance of the petrous temporal bones, brainstem, vestibule cochlear nerves, and cerebellopontine angles with no definite masses. No shift of midline structures. No intracerebral or extra-axial hematomas or masses. Normal MRI appearance of orbital structures, both globes, optic nerves, optic chiasm, optic tracts and optic radiations. The scanned paranasal sinuses are unremarkable. Hypertrophic nasal turbinates. IMPRESSION: 1. Subacute infarction at the cerebellar vermis. 2. Chronic infarction with encephalomalacia. 3. Altered deep white matter signals with anatomical distribution and imaging features consistent with the consequences of small vessel disease, e.g., hypertensive and/or diabetic vasculopathy.(Fazekas grade 1). 4. The comparison matches the CT findings. Electronically signed by Thaddeus Corcoran 05-14-2024 08:15 AM
[2024-05-14] MEDS ORDERED: MELATONIN 3 MG TAB PO PRN (08:30)
[2024-05-14] MEDS ORDERED: DEXTROSE 50% 50 ML SYRINGE IV PRN (08:30)
[2024-05-14] MEDS ORDERED: GLUCOSE 40% GEL 15 GM TUBE PO PRN (08:30)
[2024-05-14] MEDS ORDERED: GLUCOSE 10 TAB/TUBE PO PRN (08:30)
[2024-05-14] MEDS ORDERED: CARBOHYDRATES FOR HYPOGLYCEMIA PO PRN (08:30)
[2024-05-14] MEDS ORDERED: PHARMACY GLYCEMIC MGMT CONSULT PRN (08:30)
[2024-05-14] MEDS ORDERED: ACETAMINOPHEN 325 MG TAB PO PRN (08:30)
[2024-05-14] MEDS ORDERED: ONDANSETRON INJ 2 MG/ML 2 ML VIAL IV PRN (08:30)
[2024-05-14] MEDS ORDERED: GLUCAGON FOR INJ 1 MG VIAL SQ PRN (08:30)
[2024-05-14] MEDS ORDERED: LANTUS PER UNIT CHARGE SC SCH (09:00)
[2024-05-14] MEDS ORDERED: PHARMACIST DISCHARGE MED REC CONSULT PRN (09:30)
[2024-05-14 09:33] LABS: Estimated Average Glucose 157 mg/dl; Hemoglobin A1C 7.1 % (4.5-5.6)
[2024-05-14 09:37] LABS: Chol HDL Ratio 2.4 (0-5)
[2024-05-14] MEDS: INSULIN ASPART PER UNIT CHARGE SC SCH (10:53)
--- NOTE | 2024-05-14 10:53 | Neurology Consultation ---
Date of Consultation May 14, 2024 Assessment & Plan (1) Cerebellar stroke: History of Present Illness Attending Physician: Maria Ines Weldon DO History of Present Illness S: pt with now resolved unsteady gait and dizziness. mri brain showing small tiny cerebellum vermis ischemic stroke. pt has been followed in neurology in the past, [facility], in the past for stroke and other issues. pt currently feeling well. on ASA. CTA negative. chart reviewed. Admission HPI: Patient is a 68-year-old male presenting with dizziness and vomiting. Patient reports that around 430 to 5 PM he started "not feeling right." He states that his vision got blurry and he "felt off." He states he felt nauseous and vomited into his kitchen garbage can. He states that he was trying to walk that out to the garage when he suddenly felt very unsteady on his feet and had to hold onto the wall. He states that this felt similar to his previous stroke. He is currently on a baby aspirin. He states that the symptoms persisted for a few hours and he continued to have blurry vision and feeling unsteady, prompting him to call his son who then called 911. Patient de nies any recent falls or head injuries. Denies any numbness or tingling or weakness in his extremities. He was given 4 mg of Zofran and route with EMS. On arrival to the ER, he reports his nausea and symptoms are improved. He denies any headache or current changes in vision. Denies any chest pain or shortness of breath. Denies any history of cardiac stents. Allergies Allergy/AdvReac Type Severity Reaction Status Date / Time No Known Drug Allergies Allergy Unknown Unknown Verified 05/14/24 01:46 Home Medications Medication Instructions Recorded Confirmed Type atorvastatin 80 mg tablet 80 mg PO Q OTHER DAY 08/24/22 05/14/24 History metformin 1,000 mg tablet 1,000 mg PO BID 08/24/22 05/14/24 History aspirin 81 mg tablet,delayed 81 mg PO QAM 05/14/24 05/14/24 History release lisinopril 20 0.5 tab PO HS 05/14/24 05/14/24 History mg-hydrochlorothiazide 25 mg tablet loperamide 2 mg capsule (Imodium 2 mg PO QAM 05/14/24 05/14/24 History A-D) semaglutide 0.25 mg or 0.5 mg (2 0.5 mg subcut WK 05/14/24 05/14/24 History mg/3 mL) subcutaneous pen injector (Ozempic) Patient History Surgical History Hx of biopsy (03/26/24) FINAL DIAGNOSIS In office procedure Dr. Anderson Oral cavity, excision: - Inflamed squamous mucosa and fibrous tissue. - Clinical correlation is recommended. - See comment Social History Smoking Status: Former smoker Second Hand Exposure: No; Do You Dip or Chew Tobacco: No; Hx Alcohol Use: No Hx Substance Use: No Preferred Language: Mongolian Communication Ability: Effective Foreclosure Specialist Required: No Beliefs That Will Affect Care: Spiritual marital status: / Current Living Situation: Alone current occupational status: retired How many Children do You have: 2 Feels Safe at Home: Yes during the past year weight has: remained stable Assistive Devices: Glasses Review of Systems Review of Systems: All systems reviewed & are unremarkable except as noted in Subjective Constitutional: as per Subjective / HPI Eyes: as per Subjective / HPI Ear, Nose, Mouth, Throat: as per Subjective / HPI Respiratory: as per Subjective / HPI Cardiovascular: as per Subjective / HPI Gastrointestinal: as per Subjective / HPI Musculoskeletal: as per Subjective / HPI Integumentary: as per Subjective / HPI Neurologic: as per Subjective / HPI Psychiatric: as per Subjective / HPI Endocrine: as per Subjective / HPI Hematologic / Lymphatic: as per Subjective / HPI Allergy / Immunological: as per Subjective / HPI Exam (Neuro) Physical Exam: HEENT: normocephalic Neuro: Mental: AOx4, fluent speech, normal comprehension, no apraxia, no L/R confusion, no neglect CN: PERRL, Full EOM, symmetric face, midline T/U/P, 5/5 SCM/traps. Motor: No abnormal movements, normal tone and bulk, 5/5 t/o bilaterally Sens: intact to touch b/l grossly Coord: intact FNT b/l DTR: 2+ sym b/l Impression: 69 yo male with small acute cerebellum vermis ischemic stroke, stable without CTA LVO. pt clinically doing well and resolved symptoms now. Recommendations: 1. Standard stroke work up as planned 2. antiplatelet therapy: * DAPT (dual antiplatelet therapy): start for pts with ABCD2 score 4 or higher. Initial loading dose with ASA 325mg and Plavix 300mg (if pt has not been started), then ASA 81mg daily and Plavix 75mg daily. Continue DAPT for 21 days if found small vessel disease only or continue for 90 days if found to have intracranial large artery atherosclerosis. After that, can continue single antiplatelet therapy (either ASA or Plavix). For this pt, 21 days is ok. 3. Images: TTE with bubble, 4. Permissive Hypertension for next 24 h rs. Keep SBP goal range less than 220. Avoid hypotension. Do not stop beta-corbin if on it. . 6. Long-term SBP goal less than 130. 7. Plenty of hydration including IV flui d if possible (use isotonic solution) next 1-2 days. Avoid hypovolemia and hypotension. 8. Initiate DVT prevention therapy. 9. Avoid hypoglycemia, serum glucose goa l during hospitalization: 140-180. 10. Long-term HgA1c goal less than 7. 11. Start statin if not on it and no abs olute contraindication, long-term LDL goal less than 70. 12. Head of bed up 30 degrees if possibl e. 13. Stroke education by nursing and appr opriate staff. 14. Telemetry monitoring. Consider rodent exterminator cardiac monitoring, i.e. MCOT (mobile cardiac outpatient telemetry) or ICM (insertable awake overnight monitor, e.g. LINQ), if never had fci cardiac monitoring done previously. And if found to have atrial flutter or fibrillation, should consider anticoagulation therapy if no contraindication. 15. Fall precaution 16. Consult physical therapy. otherwise, not much to add from neurology. please call again if new question. Chart reviewed I have spent more than 50% educating patient about potential diagnosis and neurological evaluation and coordinating care with patient's treatment team. Total time spent (including chart review and coordination of care): 60 min (this includes chart review). Results & Data Vital Signs (Past 12 Hours) Vital Signs Temp Pulse Resp BP Pulse Ox O2 Del Method 05/14/24 07:44 75 16 126/71 94 05/14/24 06:33 73 15 95 05/14/24 06:30 115/71 05/14/24 06:30 115/71 05/14/24 06:30 115/71 05/14/24 06:24 76 12 97 05/14/24 06:21 71 15 95 05/14/24 05:48 76 17 94 05/14/24 05:36 73 13 95 05/14/24 05:21 79 23 94 05/14/24 05:03 79 15 91 05/14/24 05:00 125/74 05/14/24 05:00 125/74 05/14/24 04:54 82 14 90 05/14/24 04:33 79 21 96 05/14/24 04:30 129/80 05/14/24 04:24 77 18 95 05/14/24 04:00 76 13 93 05/14/24 04:00 117/71 05/14/24 04:00 117/71 05/14/24 03:51 78 15 93 05/14/24 03:47 81 05/14/24 03:30 114/72 05/14/24 03:21 74 15 95 05/14/24 03:12 78 16 93 05/14/24 03:09 77 15 94 05/14/24 02:57 74 18 93 05/14/24 02:56 112/71 05/14/24 02:56 112/71 05/14/24 02:24 73 13 91 05/14/24 02:21 75 14 92 05/14/24 02:00 144/86 H 05/14/24 02:00 144/86 H 05/14/24 01:57 74 15 93 05/14/24 01:42 77 15 92 05/14/24 01:39 73 16 94 05/14/24 01:39 128/77 05/14/24 01:39 128/77 05/14/24 01:39 128/77 05/14/24 01:18 77 17 93 05/14/24 01:00 78 16 93 05/14/24 00:51 83 16 93 05/14/24 00:24 75 17 93 05/14/24 00:12 76 18 93 05/14/24 00:00 78 19 92 05/13/24 23:57 82 18 92 05/13/24 23:56 85 05/13/24 23:45 Room Air 05/13/24 23:45 Room Air 05/13/24 23:27 36.6 C 82 16 152/87 H 92 Room Air PG Care Time/CCT Total # of Minutes Spent Total Time Spent with Patient: Total time spent is greater than 50% in coordination of care (as documented) at patient's floor/unit and/or counseling patient: Coding Level of Care Code 05682 IN/OBS CONSULT LVL 4,60M Diagnoses Cerebellar stroke I63.9
[2024-05-14] MEDS: LOPERAMIDE HCL 2 MG CAP PO SCH (11:06)
[2024-05-14] MEDS: ASPIRIN 81 MG ECTAB PO SCH (11:06)
[2024-05-14] MEDS: AZITHROMYCIN 250 MG TAB PO SCH (11:06)
--- NOTE | 2024-05-14 11:07 | Pharmacy Report ---
- Date of Service May 14, 2024 - Pharmacy CVA/TIA Medication Review Medications to Prevent Stroke handout has been added to the patients discharge packet. Antiplatelet(s) * Aspirin 81 mg + Plavix 75 mg PO daily x 21 days then Plavix lifelong Cholesterol * High intensity statin: atorvastatin 80 mg PO every other day DVT Prophylaxis * Enoxaparin SQ Therapeutic Anticoagulation * No history of Afib/Aflutter noted Type 2 Diabetes * Patient has T2DM and patient is prescribed semaglutide
[2024-05-14] MEDS: ENOXAPARIN INJ 40 MG/0.4 ML SYR SQ SCH (11:08)
--- NOTE | 2024-05-14 11:51 | Pharmacy Report ---
Pharmacy Glycemic Short Note 2 - Date of Service May 14, 2024 - Glycemic Short BSG Results (Last 24 hours): 05/13/24 05/14/24 05/14/24 23:45 09:10 11:33 Glucose 252 H POC Glucose 125 H 160 H OUTPATIENT ANTIDIABETIC REGIMEN: * Metformin 1000 mg PO BID * Ozempic 2 mg SC every Monday HbA1c: * 7.1% (05/14/24) ASSESSMENT: * 69 yo M admitted on 05/14/24 secondary to dizziness/stroke-like symptoms. Pharmacy has been consulted to assist with inpatient glycemic management. Patient is a Type 2 diabetic as an outpatient. Please refer to outpatient regimen and most recent HbA1c above. * BSGs today have been 125-160 mg/dL. On azithromycin and ceftriaxone for possible CAP. Ordered and tolerating a T2DM diet. Per neurology, goal BSGs while inpatient should be 140-180 mg/dL to avoid hypoglycemia following stroke. * No basal will be ordered. Continue with correctional/prandial insulin only based on weight/stress of 2. PLAN FOR INPATIENT GLYCEMIC CONTROL: * Hold outpatient oral diabetes medications * Basal insulin * None * Bolus insulin * NovoLog per scale ACHS or Q6hrs while NPO * Goal Range: Low 110 mg/dL - High 140 mg/dL * Correction Factor: 25 mg/dL/unit * Nutritional / Prandial insulin per carb ratio of 1 unit per 8 grams CHO consumed
[2024-05-14] MEDS: CLOPIDOGREL BISULFATE 300 MG TAB PO STA (13:53)
[2024-05-14] MEDS: CYANOCOBALAMIN 1000 MCG/ML VIAL IM SCH (13:54)
[2024-05-14 14:05] VITALS: BP 118/54; PULSE 78; RESP 16; O2SAT 92
--- NOTE | 2024-05-14 17:12 | XCELERA ---
[id number]
[2024-05-14] MEDS ORDERED: cefTRIAXone SODIUM 2,000 MG/50 ML BAG IV SCH (18:00)
[2024-05-14] MEDS ORDERED: STROKE PATIENT DISCHARGE STA (18:23)
--- NOTE | 2024-05-14 18:28 | Discharge Summary ---
Discharge Summary Date of Service May 14, 2024 Principal Dx & Hospital Course #1 = Principal Diagnosis (1) Cerebellar stroke: (2) PFO (patent foramen ovale): (3) B12 deficiency: (4) Aspiration pneumonitis: Plan This patient is a 69-year-old male PMHx HTN, HLD, T2DM, prior stroke, who presents via EMS for dizziness and vomiting. ED evaluation reveals leukocytosis of 14.3, H&H 13.7/40.3, CMP Na 135, BUN 30, ratio 22.3, UA negative, BioFire negative, CXR with bronchitis and RLL infiltrate; head CT, head CTA, neck CTA without acute findings. He was admitted for workup for stroke and was treated for aspiration pneumonia. #Acute ischemic cerebellar CVA-Presenting w/ ataxia and nausea/vomiting but symptoms have now completely resolved. Prior CVA 08/24/2022 requiring TNK. Known history PFO per prior echo (2022) which was redemonstrated on echo here but there is no evidence of DVT on examination. Telemetry with normal sinus rhythm. CT head without acute findings, does reveal chronic stable findings; CTA head/neck without acute findings but does reveal chronic changes; MRI confirmed cerebellar vermis subacute stroke and small vessel ischemic disease. Troponin 3.9; EKG NSR, rate 70 bpm and remained on telemetry in sinus. Lipid panel here is good and is actually quite low-change atorvastatin 40 mg p.o. once daily rather than 80 mg every other day Hemoglobin A1c well-controlled 7.1% he is already on Ozempic which is a good choice with having history of stroke Will discharge to home on dual antiplatelet therapy x 21 days-loaded with Plavix 3 mg x 1 here and continue 75 mg p.o. once daily along with aspirin 81 mg daily x 20 more days, then Plavix monotherapy Hold lisinopril/HCTZ for 1 week for permissive hypertension and can resume after that Will send cardiac event monitor to his house to wear for 2 weeks to assess for occult atrial fibrillation or flutter Follow-up with PCP No treatment needed for PFO given age over 60 and no evidence of DVT and. # Suspected aspiration pneumonitis-chest x-ray with right lower lobe infiltrate after vomiting. Was treated with ceftriaxone and azithromycin here. Suspect aspiration pneumonitis. He has 0 cough, no hypoxia, no symptoms. Leukocytosis on admission likely stress response to vomiting. -Finish out 4 more days of Augmentin as an outpatient -Have repeat chest x-ray in 4 to 6 weeks to ensure resolution of infiltrate # B12 deficiency anemia-normocytic Symptoms of dizziness and blurry vision resulting in patient's arrival to hospital; H&H on admission 13.7/40.3. No evidence of blood loss per patient. This would not account for dizziness but B12 level was checked and was low -Start B12 replacement follow as an outpatient #[id number] A1c well-controlled 7.1% Resume home Ozempic on discharge and hold metformin due to CTA contrast diet until the evening of 05/15 #HLD- Atorvastatin changed to 40 mg daily rather than 80 mg every other day #HTN- Lisinopril-HCTZ, HOLD until 1 week postdischarge Dispo: Doing very well, PT cleared him for discharge to home VTE prophylaxis: Lovenox Notes For Next Care Provider Check chest x-ray in 4 to 6 weeks Restart lisinopril/HCTZ in 1 week Cardiac event monitor to be ordered by nurse navigator Medication Changes From Visit See list Admission HPI Per Admitting Provider 69-year-old male PMHx HTN, HLD, T2DM, prior stroke, and baseline ataxia presenting to the hospital via EMS for dizziness and vomiting. Patient went to congregational the day of arrival and felt normal, then around 1630 patient admits to "not feeling right." Had yelled over to his dog for getting water on the ground then "felt funny." He went to sit down on the couch and had an episode of blurry vision followed by nausea with vomiting x 2-3 episodes. Was attempting to ambulate when he suddenly became unsteady and had to hold himself up with the wall. The symptoms continued for multiple hours and he continued to have blurry vision with unsteadiness which felt similar to his previous CVA. Symptoms did not resolve with resting/napping, so he decided to be evaluated. States that he is not having additional symptoms to include chest pain, palpitations, SOB, abdominal pain, D/C, LUTS, weakness, or syncope. States he may have some coughing but not a bothersome amount, and he was around his brother who was feeling ill a few days ago. Patient takes a daily ASA. ED evaluation reveals leukocytosis 14.30, H&H 13.7/40.3, CMP with sodium 135, BUN 30, ratio 22.3, glucose 252; UA negative for infection and BioFire negative; CXR reveals bronchitis with RLL infiltrate, head CT without acute findings but does reveal right superior cerebellar hypodense area representing chronic infarction as well as chronic microvascular ischemic changes and senile cortical atrophy; head CTA/neck CTA without acute findings, neck CT revealing multiple bilateral carotid atherosclerotic calcified plaques which have been unchanged. Patient received Zofran in ED as well as ceftriaxone + azithromycin. Please see Dr. Weldon's attestation for adjustments/additions to treatment plan. Discharge Exam Constitutional WD/WN, vitals as above Eyes PERRL, conjunctivae normal, anicteric sclerae ENMT external ear and nose normal, oropharynx normal Neck trachea midline, no thyromegaly Respiratory normal respiratory effort, lungs clear to auscultation Cardiovascular RRR, no murmur, no edema Chest (Breasts) Chest: normal inspection of chest Gastrointestinal (Abdomen) normal bowel sounds, soft, nontender, no hepatosplenomegaly Musculoskeletal Extremities: extremities normal to inspection; no cyanosis and no clubbing Skin no rashes, warm and dry Neurologic moves all extremities and awake; no focal motor deficits Psychiatric A+Ox3, euthymic affect Lymphatic no lymphedema Discharge Plan Discharge Items Patient Disposition: Home - Self-Care Reason For Visit: DIZZINESS, TIA SYMPTOMS Discharge Diagnosis: Acute ischemic CVA Aspiration pneumonitis Vitamin B12 deficiency Condition on Discharge: Good Activity: Resume your previous activity Non-emergency contact: Primary Care Provider Call non-emergency contact if: you have any medication questions and your symptoms worsen Follow-up/Referrals: Amanda Darby PA-C [Primary Care Provider] - (Follow-up within 1 to 2 weeks. Please call for an appointment.) Diet: Carb Consistent or DM2 Addtl Attending Provider Instructions: You are admitted with dizziness and vomiting found to have a stroke in the back of your brain called the cerebellum. You will be started on another blood thinner called Plavix (clopidogrel) to be taken once a day indefinitely. Please continue to take your baby aspirin each day for 20 more days and then it can be discontinued. You should take your atorvastatin every day at 40 mg a day. You can cut your 80 mg pills in half and I will send a new prescription for the 40 mg pills to take every day. If you have any future stroke symptoms, please come in right away. A heart monitor will be sent to your house for you to wear to look for arrhythmias of the heart that can put you at risk for stroke. You are also found to have possible pneumonia on your chest x-ray. It is possible that you aspirated when you were vomiting prior to admission. Please finish out a course of antibiotics with Augmentin 1 pill twice a day for 4 more days. Please have a repeat chest x-ray in 4 to 6 weeks to ensure resolution of the pneumonia. Your primary care provider can order this for you. You were also found to be deficient in vitamin X73-nrse can put you at risk for neuropathies and anemia. Please take a vitamin B-12 pill once a day. This can be bought at the [employer] [id number]. Risk Factors for Stroke: You can reduce your chances of stroke by working with your medical provider to adopt a healthy lifestyle. Some specific ways to lower your chance of stroke are: * If you are a smoker, now is the time to stop smoking cigarettes * If you are diabetic, improve the control of your blood sugars * Avoid excessive amounts of alcohol * Control high blood pressure * Lose weight if you are overweight * Be sure to lead an active lifestyle * Eat a healthy diet low in salt, cholesterol and fat You should know about other risk factors for stroke that you are unable to control. These include: * Age 55 years or older * Male gender * Certain racial groups: , or / * Family History of Stroke, Mini stroke or Heart Attack * Sickle Cell Disease Follow Up: It is important for you to keep your follow up appointments with your medical provider. Who to Call and When: Medical Emergencies: Call 911 immediately if you experience any of the following warning signs and symptoms of Stroke: * Sudden numbness or weakness of the face, arm or leg, especially on one side of the body * Sudden confusion, trouble speaking or understanding * Sudden trouble seeing in one or both eyes * Sudden trouble walking, dizziness, loss of balance or coordination * Sudden severe headache with no cause Do not delay calling 911 if you experience any warning signs or symptoms of a stroke. Delay in seeking medical attention may affect what treatments can be given to you. . Pending Studies at Discharge: No Stand-Alone Forms: [facility], Smoking Cessation, Medications to Prevent Stroke Medications and DC Order Prescriptions: New atorvastatin 40 mg Tablet 40 mg PO QAM Qty: 30 0RF clopidogrel 75 mg Tablet 75 mg PO DAILY Qty: 30 0RF cyanocobalamin (vitamin B-12) 1,000 mcg capsule 1,000 mcg PO DAILY Qty: 30 0RF Rx Instructions: Sant-rvx-jkenhee amoxicillin-pot clavulanate 875-125 mg tablet 1 tab PO BID Qty: 8 0RF Continued Ozempic 0.25 mg or 0.5 mg (2 mg/3 mL) pen injector 0.5 mg SUBCUT WK Rx Instructions: EVERY 7 DAYS INJECTION ON SATURDAYS loperamide [Imodium A-D] 2 mg Capsule 2 mg PO QAM Changed aspirin 81 mg tablet,delayed release (DR/EC) 81 mg PO QAM 20 Days Qty: 20 0RF Held metformin 1,000 mg tablet 1,000 mg PO BID Hold Instructions: Resume on 05/15/24. This can be restarted on the evening of 05/15 lisinopril-hydrochlorothiazide 20-25 mg tablet 0.5 tab PO HS Hold Instructions: Resume on 05/21/24. Hold for 1 week Discontinued atorvastatin 80 mg tablet 80 mg PO Q OTHER DAY Rx Instructions: TAKES AT NIGHT Discharge Orders: Discharge Order (Routine); Ordered 05/14/24 Ordered By: Arielle Marc Admission Data Admit Date/Time: 05/14/24 04:51 Attending Provider: Arielle Marc Admit Provider: Maria Ines Weldon Primary Care Provider: Amanda Darby Other Providers: Maria Ines Weldon; [facility] Stay Data Consultations 05/14/24 03:51 ED Decision to Admit Stat 05/14/24 09:27 Consult Neurology Routine Diagnostic Imagining Performed 05/13/24 23:45 CT head/brain wo con Stat CTA head w con [CT angio head w con] Stat CTA neck with con [CT angio neck with con] Stat 05/14/24 04:51 MRI Brain [MR brain wo/w con] Stat Echocardiogram Pending Results Patient Have Any Pending Studies at Discharge: No Discharge Instructions Given to Patient (Per Discharging Provider) You are admitted with dizziness and vomiting found to have a stroke in the back of your brain called the cerebellum. You will be started on another blood thinner called Plavix (clopidogrel) to be taken once a day indefinitely. Please continue to take your baby aspirin each day for 20 more days and then it can be discontinued. You should take your atorvastatin every day at 40 mg a day. You can cut your 80 mg pills in half and I will send a new prescription for the 40 mg pills to take every day. If you have any future stroke symptoms, please come in right away. A heart monitor will be sent to your house for you to wear to look for arrhythmias of the heart that can put you at risk for stroke. You are also found to have possible pneumonia on your chest x-ray. It is possible that you aspirated when you were vomiting prior to admission. Please finish out a course of antibiotics with Augmentin 1 pill twice a day for 4 more days. Please have a repeat chest x-ray in 4 to 6 weeks to ensure resolution of the pneumonia. Your primary care provider can order this for you. You were also found to be deficient in vitamin X80-dire can put you at risk for neuropathies and anemia. Please take a vitamin B-12 pill once a day. This can be bought at the [employer] [id number]. Risk Factors for Stroke: You can reduce your chances of stroke by working with your medical provider to adopt a healthy lifestyle. Some specific ways to lower your chance of stroke are: * If you are a smoker, now is the time to stop smoking cigarettes * If you are diabetic, improve the control of your blood sugars * Avoid excessive amounts of alcohol * Control high blood pressure * Lose weight if you are overweight * Be sure to lead an active lifestyle * Eat a healthy diet low in salt, cholesterol and fat You should know about other risk factors for stroke that you are unable to control. These include: * Age 55 years or older * Male gender * Certain racial groups: , or / * Family History of Stroke, Mini stroke or Heart Attack * Sickle Cell Disease Follow Up: It is important for you to keep your follow up appointments with your medical provider. Who to Call and When: Medical Emergencies: Call 911 immediately if you experience any of the following warning signs and symptoms of Stroke: * Sudden numbness or weakness of the face, arm or leg, especially on one side of the body * Sudden confusion, trouble speaking or understanding * Sudden trouble seeing in one or both eyes * Sudden trouble walking, dizziness, loss of balance or coordination * Sudden severe headache with no cause Do not delay calling 911 if you experience any warning signs or symptoms of a stroke. Delay in seeking medical attention may affect what treatments can be given to you. . Total Time Total Time Spent Total Time Spent (In Minutes): 40 minutes Total Time Includes: Examination of the Patient, Discharge Planning and Medication Reconciliation Coding Level of Care Code 21587 INP/OBS DISCH >30 MIN Diagnoses Cerebellar stroke I63.9 PFO (patent foramen ovale) Q21.12 B12 deficiency E53.8 Aspiration pneumonitis J69.0
[2024-05-15] MEDS ORDERED: CLOPIDOGREL BISULFATE 75 MG TAB PO SCH (09:00)
[2024-05-15] MEDS ORDERED: ATORVASTATIN 40 MG TAB PO SCH ×2 (09:00)
[2024-05-15] MEDS ORDERED: AZITHROMYCIN 250 MG TAB PO SCH (09:00)
--- NOTE | 2024-05-15 11:45 | Pharmacy Report ---
Pharmacist Stroke Counseling - Date of Service May 15, 2024 - Scope: Pharmacy has been consulted to provide medication discharge counseling for this patient admitted with transient ischemic attack as per the Pharmacist Discharge Counseling for Stroke Patients Protocol. - Medications on Discharge: Home Medications Medication Instructions Recorded Confirmed metformin 1,000 mg tablet 1,000 mg PO BID 08/24/22 05/14/24 lisinopril 20 0.5 tab PO HS 05/14/24 05/14/24 mg-hydrochlorothiazide 25 mg tablet loperamide 2 mg capsule (Imodium 2 mg PO QAM 05/14/24 05/14/24 A-D) semaglutide 0.25 mg or 0.5 mg (2 0.5 mg subcut WK 05/14/24 05/14/24 mg/3 mL) subcutaneous pen injector ([employer]) New Rx's Medication Instructions Recorded amoxicillin 875 mg-potassium 1 tab PO BID #8 tabs 05/14/24 clavulanate 125 mg tablet aspirin 81 mg tablet,delayed 81 mg PO QAM 20 days #20 tabs 05/14/24 release atorvastatin 40 mg tablet 40 mg PO QAM #30 tabs 05/14/24 clopidogrel 75 mg tablet 75 mg PO DAILY #30 tabs 05/14/24 cyanocobalamin (vitamin B-12) 1,000 mcg PO DAILY #30 caps 05/14/24 1,000 mcg capsule - Action: The above medications, specifically ones for stroke treatment/prophylaxis, have been reviewed in detail with the patient and/or patient sales development representative(s) prior to discharge. This includes indication, common adverse reactions, drug interactions, and medication administration. Medication counseling has been employed using the teach-back method to ensure understanding. - Outcome: The patient and/or patient sales development representative(s) have demonstrated understanding of the medications. Additional comments: - patient refused telephone counseling from pharmacist Thank you for allowing pharmacy to be involved in the care of this patient. Please call [phone] with any additional questions
--- NOTE | 2024-05-15 20:48 | Electrocardiogram Report ---
Test Reason : Blood Pressure : */* mmHG Vent. Rate : 78 BPM Atrial Rate : 78 BPM P-R Int : 164 ms QRS Dur : 92 ms QT Int : 390 ms P-R-T Axes : 53 39 62 degrees QTcB Int : 444 ms Normal sinus rhythm Normal ECG When compared with ECG of 24-Aug-2022 10:33, No significant change was found Confirmed by Faisal Ge ([id number]) on 05/15/2024 8:47:44 PM Referred By: REFERRED SELF Confirmed By: Faisal Ge
== END 2024-05-14 18:55 | disposition home or self-care (01) ==
LOC: SUATTDRO → ED 23:31 → EDINP 23:31 → SUATTDRO 05-14 04:51 → EDINP 05-14 08:31